=== PATIENT | male | born 1945 | race Caucasian/White ===

== ENCOUNTER 2018-03-01 09:30 | Outpatient (RCR) | payer OTHER, SELFPAY ==
--- NOTE | 2018-01-02 17:00 | HP.PTEVAL_ITS ---
Patient's Visit Information D KEON HINSON is a 72 year old M referred to Physical Therapy by Keon Fortune with a diagnosis of LUMBAR DDD, LUMBAR SCOLIOSIS, AND RIGHT HIP OA.. Date of Evaluation: 01/02/18 Physical Therapist: Britney Santos - Visit Plan Frequency: 2-3x /Week Duration: 4-6 Weeks Plan: POSTURE CORRECTION/STRENGTHENING, INSTRUCTION IN APPROPRIATE BODY MECHANICS AND ACTIVITY MODIFICATIONS. DLS STARTING WITH A NEUTRAL SPINE PROGRESSING ROM TOLERATED. JOSE LE ROM, STRETCHING AND STRENGTHENING. HEP INSTRUCTION. - Subjective Subjective: Work/Leisure: RETIRED. 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 Disability: NO. Present symptoms: RIGHT LOW BACK PAIN, A LITTLE LEFT LOW BACK PAIN, RIGHT HIP PAIN, AND DIFFICULTY RAISING RIGHT LEG TO GO UP STEPS - WEAK. SOME TINGLING ON THE BOTTOM OF BOTH FEET - STATES THE DOCTOR IS AWARE. Present since: ABOUT 3 YEARS AGO. Pain Scale: WORST 7/10, LEAST 1/10. Currently: 07/25. Commenced as a result of: FALL IN THE SHOWER. Symptoms at onset: RIGHT RIB FX'S AND THEN RIGHT BACK PAIN. Worse: RIGHT SDLY, BENDING, TWISTING, DRIVING, PROLONGED SITTING, GETTING UP IN THE MORNING. Better: STRETCHING/MOVING THE BODY/SIT UPS IN BED BEFORE GETTING UP/BEND OVERS. CHIROPRACTOR. HOT TUB. Disturbed sleep: NO. Previous history/Previous treatment: CHIROPRACTOR. Coughing/sneezing/straining : POSITIVE. Gait: INDEP GAIT WITHOUT AD. WALKING STRAIGHT TODAY BUT SOMETIMES GETS PULLED TO THE RIGHT IN WALKING. Difficulty initiating urinatin: NO. Accidents: NO. Unexplained weight loss: NO. Imaging: RECENT LUMBAR X -RAYS ORDERED BY DR. FORTUNE - ARTHRITIS. RIGHT HIP X-RAY - MINIMAL ARTHRITIS. PMH: CHRONIC RIGHT FOREARM NUMBNESS AND SOME RIGHT SHOULDER ISSUES. JOSE KNEE ARTHRIITS - NO KNEE SURGERIES BUT RECENT INJECTIONS. BARRETS ESOPHOGUS TREATMENTS FOR PRE-CANCEROUS CONDITION. HTN. HIGH CHOLESTEROL. - Objective Sitting/Standing Posture: POOR. SLOUCHED. FORWARD HEAD, ROUNDED SHOULDERS. JOSE GENU VARUS. Lordosis: DECREASED. Lateral shift: NO. Relevant shift: N/A. Active Correction of posture: NE. Other Observations: INDEP GAIT INTO PT WITHOUT AD. INCREASED TRUNK FLEXION. NO LOB. INDEP TRANSFER SIT TO STAND WITHOUT UE ASSIST. Motor deficit: JOSE LE'S 5/5 WITH MMT'ING EXCEPT HIPS GRADED 4/5. Sensory deficit: JOSE LE LIGHT TOUCH SENSATION IS INTACT AND SYMMETRICAL. FEET NT. ROM deficit: TIGHT JOSE HIP ROTATORS WITH THE LEFT HIP ACTUALLY BEING MORE TIGHT THAN THE RIGHT INTO EXTERNAL ROTATION. JOSE HIP FLEX WNL. TIGHT JOSE HIP EXTENSORS. ONLY MILD HS TIGHTNESS. GASTROC'S WFL. Reflexes: UNABLE TO ELICIT JOSE QUAD DTR'S BUT JOSE ACHILLES 1/2. Dural Signs: NEGATIVE JOSE LE'S. Lumbar mvmt loss: flex - NIL. ext - MOD. R SG - MOD. L SG - MIN. Core strength: POOR. Palpation: TENDERNESS WITH PALPATION OF THE L45S1 REGION. TALON INCREASED MUSCLE TONE JOSE LUMBAR PARASPINALS. NO HIP TENDERNESS JOSE TODAY. - Goals Goal 1:: DECREASE C/O RIGHT LOW BACK AND HIP Goal Time Frame: 4-6 Weeks Goal 2:: IMPROVE LIFTING, WALKING, SITTING, STANDING, TRAVEL AND HOMEMAKING FUNCTION. Goal Time Frame: 4-6 Weeks Goal 3:: INSTRUCT IN PROPHYLAXIS Goal Time Frame: 4-6 Weeks - Rehabilitation Potential Rehabilitation Potential: Fair - Anticipated Interventions Patient/Client Instruction: Educate patient on: Condition, Plan of Care, Risk Factors, Benefits of Fitness Program For the Purpose of:: To improve self management Therapeutic Exercise to Include: Strength training, Body mechanics, Postural training, Passive ROM, Dynamic Lumbar Stabilization For the Purpose of:: To decrease pain, To increase ROM, To improve ability of physical actions for home/community/work/leisure Ultrasound (thermal/non thermal): Yes For the Purpose of:: To decrease pain, To decrease swelling/inflammation, To increase ROM Thank you for the opportunity to evaluate your patient. For Medicare and Medicare HMO plans, please review the plan of care and approve it. It will need to be FAXED BACK to us at [phone] for Medicare purposes. Please let me know if there are questions or concerns regarding this plan of care. Physician Signature: Date:
--- NOTE | 2018-02-22 17:09 | HP.PTREVAL ---
Keon Fortune, It has been my pleasure to treat Fatoumata HINSON over the last 10 visits for LUMBAR DDD, LUMBAR SCOLIOSIS, AND RIGHT HIP OA.. Please see the progress note below for an update on the physical therapy plan of care! Subjective: PATIENT REPORTS HE IS GETTING BETTER BUT INCREASED LOW BACK PAIN LAST NIGHT AND THIS MORNING FOR NO APPARENT REASON. PATIENT REPORTS HE IS GOING TO JOIN OUR [facility] MEMBERSHIP HERE AT [facility]. PATIENT REPORTS HE HAD UP TO 7-8/10 PAIN THIS MORNING. PATIENT REPORTS HIS PAIN ISN'T STOPPING HIM FROM DOING ANYTHING BUT HE WOULD REALLY LIKE TO KNOW WHAT IS WRONG. HAS BEEN GOLFING A FEW TIMES AND DOES TIGHTEN UP THE LAST 3 HOLES OF 18 HOLE ROUND. NO CHANGE IN FOOT SX'S AT THIS POINT. Objective/Function: PATIENT HAS MADE MINIMAL PROGRESS TOWARD THE SET PT GOALS. HE CONTINUES TO HAVE SIGNIFICANT LOW BACK PAIN. HE AMBULATES INDEP'LY INTO PT WITH A LEFT LATERAL SHIFT AND INCREASED TRUNK FLEXION. HE IS ABLE TO CROSS MIDLINE TO THE RIGHT. LUMBAR MVMT LOSS: FLEX - NIL, EXT - MOD, RIGHT SG - MOD, LEFT SG - MIN. TOLERATED US WELL. TOLERATED DURAL STRETCHING WELL. PATIENT REPORTED DECREASED LOW BACK PAIN AFTER SESSION TODAY. Plan Plan: CONT PT 2-3 TIMES A WEEK X 4-5 WEEKS FOR US TO LOW BACK. POSTURAL STRENGTHEING. JOSE LE ROM, STRETCHING AND STRENGTHENING. CORE STRENGTHEING. CONTINUE TO PROGRESS TOWARD INDEP GYM PROGRAM. TRIAL OF MECHANIZIES EXT AND OR LATERAL PRINCIPALS OF TREATMENT INDICATED. Goals Goal 1:: DECREASE C/O RIGHT LOW BACK AND HIP Goal Time Frame: 4-6 Weeks Goal Progress: Not Progressing Goal 2:: IMPROVE LIFTING, WALKING, SITTING, STANDING, TRAVEL AND HOMEMAKING FUNCTION. Goal Time Frame: 4-6 Weeks Goal Progress: Not Progressing Goal 3:: INSTRUCT IN PROPHYLAXIS Goal Time Frame: 4-6 Weeks Goal Progress: Progressing Anticipated Interventions Patient/Client Instruction: Educate patient on: Condition, Plan of Care, Risk Factors, Benefits of Fitness Program For the Purpose of:: To improve self management Therapeutic Exercise to Include: Strength training, Body mechanics, Postural training, Passive ROM, Dynamic Lumbar Stabilization For the Purpose of:: To decrease pain, To increase ROM, To improve ability of physical actions for home/community/work/leisure Ultrasound (thermal/non thermal): Yes For the Purpose of:: To decrease pain, To decrease swelling/inflammation, To increase ROM Please do not hesitate to contact me at [phone] by phone or if you have questions or concerns regarding this new plan of care! Sincerely, Britney Santos
--- NOTE | 2018-03-01 10:13 | HP.PTDCSUM ---
HP - PT D/C Summary It has been my pleasure to treat Fatoumata HINSON under orders from Keon Fortune, for the diagnosis of LUMBAR DDD, LUMBAR SCOLIOSIS, AND RIGHT HIP OA. for a total of 13 visit(s). Discharge Date: Please see the following information for a summary of their discharge status. - Subjective Subjective: PATIENT REPORTS HE HASN'T HAD ANY BAD MORNINGS LATELY. PLAYED TWO ROUNDS OF GOLF THE OTHER DAY AND LAST NIGHT PLAYED GOLF. ABLE TO GOLF WITH LESS BACK TIGHTNESS NOW COMPARED TO BEFORE PT. HAD JOSE KNEE INJECTIONS YESTERDAY. THIS IS THE FIRST TIME HE HAS HAD THESE INJECTIONS. PATIENT REPORTS UP TO 3-4/10 PAIN IN THE LAST 3 DAYS AT ITS WORST. NO LONGER HAVING TROUBLE GOING UP STEPS. PATIENT REPORTS HE WOULD LIKE TO HAVE AN MRI TO SEE IF THEY CAN SEE MORE SPECIFICALLY WHAT CAN BE DONE. PATIENT REPORTS HE DIDN'T REALIZE BEFORE THAT THE MEDICINE THE DOCTOR HAS HIM ON IS ACTUALLY A PAIN MEDICINE. - Pain LOW BACK Pain Intensity (Out of 10): 0 RIGHT HIP Pain Intensity (Out of 10): 0 LEFT KNEE PAIN Pain Intensity (Out of 10): 0 - Overall Improvement % Improvement: 25 - Objective Objective/Function: PATIENT HAS CONTINUED TO ONLY MAKE MINIMAL PROGRESS TOWARD THE SET PT GOALS. HE CONTINUES TO HAVE SIGNIFICANT LOW BACK PAIN AT TIMES LIMITING HIS FUNCTION. HE AMBULATES INDEP'LY INTO PT WITH A MILD LEFT LATERAL SHIFT (BUT PATIENT REPORTS THE PAIN PULLS HIM RIGHT SOMETIMES)AND INCREASED TRUNK FLEXION. HE IS ABLE TO CROSS MIDLINE TO THE RIGHT. LUMBAR MVMT LOSS: FLEX - NIL, EXT - MOD, RIGHT SG - MOD, LEFT SG - MIN. LEFT SG INCREASES THE PAIN. RECOMMEND PHYSICIAN FOLLOW UP AND AVOIDANCE OF BENDING, LIFITNG AND TWISITNG UNTIL RECOMMENDED OTHERWISE BY PHYSICIAN. - Goals Goal 1:: DECREASE C/O RIGHT LOW BACK AND HIP Goal Progress: Not Progressing Goal 2:: IMPROVE LIFTING, WALKING, SITTING, STANDING, TRAVEL AND HOMEMAKING FUNCTION. Goal Progress: Not Progressing Goal 3:: INSTRUCT IN PROPHYLAXIS Goal Progress: Goal Met - Plan Plan: D/C DUE TO LACK OF PROGRESS. - D/C Information If there are questions or concerns regarding this patient's physical therapy, please feel free to call me at [phone]. Thank you for the referral of this patient. Sincerely, Britney Santos
== END 2018-03-01 11:39 | disposition home or self-care (01) ==
LOC: PT 09:30
PROVIDERS: Family Provider Internal Medicine; PCP Internal Medicine; Visit Provider Orthopaedic Surgery
DX: M51.36 Other intervertebral disc degeneration, lumbar region (principal); M41.46 Neuromuscular scoliosis, lumbar region; M16.11 Unilateral primary osteoarthritis, right hip
CPT/HCPCS: 97035; 97110; 97162; 97164; 97530

== ENCOUNTER 2021-09-19 06:25 | Outpatient (CLI) | payer OTHER, SELFPAY ==
--- NOTE | 2021-09-19 13:51 | STRESSREP ---
Stress Test Report Exercise myocardial perfusion stress test. 76-year-old male with a history of fatigue. Stress protocol: Resting EKG demonstrates normal sinus rhythm with a rate of 76 bpm normal intervals are noted resting blood pressure is 146/86 mmHg. The patient exercised according to regular Abdias protocol for a total duration of 9 minutes and 30 seconds. Patient completed 30 seconds into stage IV of the Abdias protocol. The maximum heart rate attained 125 bpm which was 86% of max impact at heart rate the maximum workload was 11.7 metabolic equivalents. At rest there were no ST or T wave changes noted suggest ischemia and at peak exercise upsloping ST changes were noted with did not meet the criteria for ischemia. No clinical angina was noted. The test was terminated due to dyspnea and target heart rate being achieved. The peak blood pressure was 200/92 mmHg which was 21,000 for a rate-pressure product. Myocardial perfusion protocol. 11.3 mCi of technetium 99m sestamibi was injected at rest. The patient exercised according to regular Abdias protocol and at peak exercise 33.9 mCi of technetium 99m sestamibi was injected stress images were obtained and stress and rest images were reconstructed in comparing the short axis vertical long and horizontal long axis. Gated images were also obtained Perfusion SPECT analysis: Review of the stress images demonstrate normal uptake of tracer noted in all areas of the myocardium. The resting images similarly demonstrate normal uptake of tracer noted in all areas of the myocardium. No areas of reversibility are noted to suggest ischemia no previous infarct is noted. Gated SPECT analysis: The gated ejection fraction is 62%. Conclusion: Normal exercise myocardial perfusion stress test at a high workload. Preserved ejection fraction. Excellent functional capacity.
== END 2021-09-19 23:59 | disposition home or self-care (01) ==
LOC: CVS 06:35
PROVIDERS: PCP Internal Medicine; Referring Provider Internal Medicine; Visit Provider Internal Medicine
DX: E78.5 Hyperlipidemia, unspecified (principal); I10 Essential (primary) hypertension; R53.83 Other fatigue; E78.00 Pure hypercholesterolemia, unspecified
CPT/HCPCS: 78452; 93017; A9500; A4216

== ENCOUNTER → 2022-01-17 | Outpatient (CLI) | payer OTHER, MEDICARE, SELFPAY ==
[2022-01-18 14:01] LABS: PSA, Free 1.29 ng/mL; PSA, Free % 15.5 % (.); PSA, Total Ultrasensitive 8.3 ng/mL (0.0-4.0)
== END | disposition home or self-care (01) ==
LOC: LAB 08:55
PROVIDERS: PCP Internal Medicine; Visit Provider Urology
DX: N40.1 Benign prostatic hyperplasia with lower urinary tract symptoms (principal)
CPT/HCPCS: 36415; 84153; 84154

== ENCOUNTER → 2022-02-10 | Outpatient (CLI) | payer OTHER, MEDICARE, SELFPAY ==
--- NOTE | 2022-02-10 17:10 | MRI_ITS ---
MR Pelvis Male WO/W Contrast 02/10/2022 5:34 PM COMPARISON: None CLINICAL HISTORY: 76 yo M with elevated PSA TECHNIQUE: Standard prostate MR protocol was used before and after administration of 17cc IV Dotarem FINDINGS: Prostate volume: 58 cc PSA density: ONLY B4 TREATMENT ng/ml2 Length of membranous urethra: 9 mm Post-biopsy hemorrhage: None Multiparametric MR evaluation: Heterogeneous appearance of the central gland is consistent with benign prostatic hyperplasia. Diffuse mild T2 hypointensity of the left peripheral zone most likely due to prostatitis. Lesion 1: LOCATION - 1.4 x 3.1 x 2.6 cm moderately T2 hypointense lesion in the right lateral transitional zone from near base to near apex. Is also bright on DWI and dark on ADC map. T2 - 5 DWI - 5 DCE - positive Overall PI-RADS v2 score = 5 Lesion 2: LOCATION - 1.3 x 0.6 x 1.4 cm moderately T2 hypointense lesion in the right posterior lateral peripheral zone in the midline between apex and base. T2 - 4 DWI - 4 DCE - positive Overall PI-RADS v2 score = 4 Capsular margin and neurovascular bundle: There is no obvious macro capsular extension. There is however microcapsular extension along the right lateral border near the bladder by lesion 1. Seminal vesicles: Normal Lymph nodes: No lymphadenopathy in the field of view. Bones: No suspicious lesions in the field of view. MRI/Pelvis W/WO Contrast IMPRESSION: - 3.1 cm PI-RADS 5 lesion in the right lateral TZ from near base to near apex. -1.4 cm PI-RADS 4 lesion in the right posterolateral PZ in midline between base and apex. - No obvious macro capsular extension. There is however microcapsular extension along the right lateral border near the bladder by lesion 1. -No involvement of the seminal vesicles, lymph nodes or bones. Electronically Signed: Pool Sim MD at 0:29 EDT ,
[2022-02-10 17:46] LABS: CREATININE FINGERSTICK 1.2 mg/dL (0.70-1.30); EGFR FINGERSTICK > 60.0000 mL/min (>60)
== END | disposition home or self-care (01) ==
LOC: MRI 17:00
PROVIDERS: PCP Internal Medicine; Visit Provider Urology
DX: R97.20 Elevated prostate specific antigen [PSA] (principal)
CPT/HCPCS: 72197; A9575

== ENCOUNTER → 2022-02-20 | Outpatient (CLI) | payer MEDICARE, OTHER, SELFPAY ==
--- NOTE | 2022-02-20 | IMM_PTH ---
PATIENT: BRANDEE HINSON LOC: [facility] U#:[id number] AGE/SX: 76/M ROOM: RE02/20/[address]: Dr. Paresh Sampson MD : 1945 BED: DIS: 02/20/2022 SPEC #: [id number] RECD: 02/22/22 11:37 STATUS: IVANA REQ #: [id number] FAHEEM: 02/20/22 00:[address]: Paresh Sampson DEPT: IMMUNOHISTOCHEMISTRY RECD BY: Yolanda Yates ENTERED: 02/22/22 11:40 SP TYPE: IMMUNO OTHR DR: Dr. Ayanna Sharp MD Tissues: F - PROSTATE LEFT Procedures: P40 (add) 34BE12 (initial) PHYSICIAN & INSTITUTION [place] [id number] SPECIMEN INFORMATION: Tissue Source: F - Left prostate, base, core biopsy Clinical Info: Elevated PSA Specimen Number: [id number] CPT code: 42460, 82286 METHODOLOGY: Deparaffinized sections of prefer/formalin-fixed tissue or PAP/DQ stained slides are incubated with monoclonal/polyclonal antibodies/oligonucleotide probes. Localization is made via biotin free immunoperoxidase method. Appropriate controls are performed and reacted as expected. Results on target cell population are indicated in the following table: RESULTS: ANTIBODY / CLONE RESULT Block F P40 (BC28) negative, a few glands 34BE12 (34BE12) negative, a few glands These tests were developed and their performance characteristics determined by [facility]. They may not have been cleared or approved by the U.S. Food and Drug Administration. The FDA has determined that such clearance or approval is not necessary. The above immunohistochemical/dualISH markers are ordered and reviewed by the Pathologist. INTERPRETATION: F. Left prostate, base, core biopsy: Focal atypical small acinar proliferation. ARON:maddie 02/23/2022
--- NOTE | 2022-02-20 | PROSBIL_PTH ---
PATIENT: BRANDEE HINSON LOC: [facility] U#:[id number] AGE/SX: 76/M ROOM: RE02/20/[address]: Dr. Paresh Sampson MD : 1945 BED: DIS: 02/20/2022 SPEC #: [id number] RECD: 02/20/22 16:46 STATUS: IVANA RERoxana #: [id number] FAHEEM: 02/20/22 00:[address]: Paresh Sampson DEPT: SURGICAL PATHOLOGY RECD BY: Salvador Stephens ENTERED: 02/21/22 11:47 SP TYPE: PROST BX JODIE DR: Dr. Ayanna Sharp MD Tissues: A - PROSTATE RIGHT B - PROSTATE RIGHT C - PROSTATE RIGHT D - PROSTATE LEFT E - PROSTATE LEFT F - PROSTATE LEFT Procedures: PROSTATE BX HEADER OPERATION: Prostate biopsy PRE-OP DIAGNOSIS: Elevated PSA TISSUE SUBMITTED: A - Right apex, B - Right mid, C - Right base, D - Left apex, E - Left mid, F - Left base MICROSCOPIC DIAGNOSIS A. Right prostate, apex, core biopsy: Prostatic adenocarcinoma. [place] grade: 3+3=6 Number of cores involved: 3/3 Proportion of tissue involved: ~40% Perineural invasion: Not identified. Greatest tumor length: 0.8 cm, discontinuous. B. Right prostate, mid, core biopsy: Prostatic adenocarcinoma. [place] grade: 3+3=6 Number of cores involved: 2/2 Proportion of tissue involved: ~50% Perineural invasion: Not identified. Greatest tumor length: 0.6 cm Focal high-grade prostatic intraepithelial neoplasia (HGPIN). C. Right prostate, base, core biopsy: Prostatic adenocarcinoma. [place] grade: 3+3=6 Number of cores involved: 2/3 Proportion of tissue involved: ~50% Perineural invasion: Not identified. Greatest tumor length: 0.7 cm D. Left prostate, apex, core biopsy: Focal high-grade prostatic intraepithelial neoplasia (HGPIN). Focal chronic inflammation and calcification. E. Left prostate, mid, core biopsy: Prostatic tissue, negative for malignancy. Focal acute and chronic inflammation. F. Left prostate, base, core biopsy: Focal atypical small acinar proliferation (PATY). Focal high-grade prostatic intraepithelial neoplasia (HGPIN). Focal chronic inflammation. See comment. SJ:maddie 02/22/2022 COMMENT F. Immunohistochemistry ([id number]) supports the above diagnosis. Case has been reviewed in consultation with Dr. Mon who concurs with the above diagnosis. IDC:AM MICROSCOPIC DESCRIPTION Slides are reviewed. GROSS DESCRIPTION A - Received is one container designated prostate, right apex. The specimen consists of three elongated fragments of light pabon-white soft tissue measuring 1.2 to 1.5 cm in length and 0.1 cm in diameter. The specimen is totally submitted in one cassette. B - Received is one container designated prostate, right mid. The specimen consists of two elongated fragments of light pabon-white soft tissue each measuring 1.5 cm in length and 0.1 cm in diameter. The specimen is totally submitted in one cassette. C - Received is one container designated prostate, right base. The specimen consists of three elongated fragments of light pabon-white soft tissue measuring 1 to 1.5 cm in length and 0.1 cm in diameter. The specimen is totally submitted in one cassette. D - Received is one container designated prostate, left apex. The specimen consists of two elongated fragments of light pabon-white soft tissue measuring 0.9 and 1.1 cm in length and 0.1 cm in diameter. The specimen is totally submitted in one cassette. E - Received is one container designated prostate, left mid. The specimen consists of two elongated fragments of light pabon-white soft tissue measuring 1 and 1.5 cm in length and 0.1 cm in diameter. The specimen is totally submitted in one cassette. F - Received is one container designated prostate, left base. The specimen consists of two elongated fragments of light pabon-white soft tissue measuring 1.2 and 2 cm in length and 0.1 cm in diameter. The specimen is totally submitted in one cassette. / ARON:maddie 02/21/2022 TC:0 CPT: G0146
== END | disposition home or self-care (01) ==
LOC: LABSPEC 16:52
PROVIDERS: PCP Internal Medicine; Visit Provider Urology
DX: R97.20 Elevated prostate specific antigen [PSA] (principal)
CPT/HCPCS: 88305; 88341; 88342; G0416

== ENCOUNTER → 2022-03-07 | Outpatient (CLI) | payer MEDICARE, OTHER, SELFPAY ==
[2022-03-07 12:19] LABS: Absolute Lymphocyte Count 2.04 X10^3/uL (0.83-4.51); Absolute Neutrophil Count 3.8 X10^3/uL (2.0-7.7); Basophil# 0.04 X10^3/uL; Basophil% 0.6 % (0-1); Eosinophil# 0.11 X10^3/uL; Eosinophils% 1.7 % (0-5); Hematocrit 47.4 % (40-54); Hemoglobin 15.5 g/dL (13.0-16.5); Lymphocyte # 2.04 X10^3/ul (0.83-4.51); Lymphocyte % 31.5 % (19-41); Mean Corp Hgb Conc 32.7 g/dL (32-36); Mean Corpuscular Volume 91.7 fL (80-94); Mean Platelet Vol. 11.4 fl (6.2-12.0); Monocyte# 0.48 X10^3/uL; Monocyte% 7.4 % (0-10); NRBC Flagged by Analyzer 0 % (0-5); Neutrophil # 3.79 X10^3/uL (2.7-7.7); Neutrophil % 58.5 % (47-70); Platelet Count 269 K/mm3 (150-450); RBC Distribution Width CV 13.2 % (11.6-14.6); RBC Distribution Width SD 44.7 fl (35.1-43.9); Red Blood Count 5.17 M/mm3 (4.6-6.2); White Blood Count 6.5 K/mm3 (4.4-11.0)
[2022-03-07 13:04] LABS: Vitamin D,25 Hydroxy 29.2 ng/mL
[2022-03-07 13:16] LABS: ALB/GLOB Ratio 0.9 RATIO (0.9-2.4); AST(SGOT) 19 U/L (15-37); Alanine Aminotransfer ALT/SGPT 22 U/L (16-61); Albumin, Serum 3.4 g/dL (3.2-5.0); Alkaline Phosphatase 58 U/L (45-117); Anion Gap 6 (5-15); BUN 16 mg/dL (7-18); BUN/Creat Ratio 16.1 RATIO (10-20); Calcium,Total 9.2 mg/dL (8.5-10.1); Chloride 105 mmol/L (98-107); Cholesterol 268 mg/dL (200); EST Glomerular Filtration Rate 78 mL/min (>60); Est Glom Filt Rate - Afr Amer 94 mL/min (>60); Globulin 3.7 g/dL (2.2-4.2); Glucose 119 mg/dL (74-106); High Density Lipoprotein 42 mg/dL; PSA,Total - Annual Screen 7.74 ng/mL (0.00-4.00); Potassium 4.2 mmol/L (3.5-5.1); Protein, Total 7.1 g/dL (6.4-8.2); Sodium Level 138 mmol/L (136-145); Thyroid Stim Hormone (TSH) 3.74 uIU/mL (0.358-3.74); Triglycerides 151 mg/dL; Very Low Density Lipoprotein 30 mg/dL (5-40)
== END | disposition home or self-care (01) ==
PROVIDERS: PCP Internal Medicine; Referring Provider Internal Medicine; Visit Provider Internal Medicine
DX: R97.20 Elevated prostate specific antigen [PSA] (principal); E78.5 Hyperlipidemia, unspecified; I10 Essential (primary) hypertension; K21.9 Gastro-esophageal reflux disease without esophagitis; E55.9 Vitamin D deficiency, unspecified; R53.83 Other fatigue
CPT/HCPCS: 36415; 80053; 80061; 82306; 84153; 84443; 85025; G0103

== ENCOUNTER → 2022-04-27 | Outpatient (CLI) | payer OTHER, MEDICARE, SELFPAY ==
--- NOTE | 2022-04-27 08:45 | CDU_ITS ---
Reason For Study: unstable gait Rt. Velocities/BP Lt. Velocities/BP Prox CCA 70.2/17.3 cm/sec. Prox CCA 60.4/13.3 cm/sec. Mid CCA 81.5/17.3 cm/sec. Mid CCA 75.3/17.7 cm/sec. Dist CCA 67.4/16.3 cm/sec. Dist CCA 84.4/21.1 cm/sec. Prox ICA 66.4/16.3 cm/sec. Prox ICA 91.2/24.9 cm/sec. Mid ICA 57.9/19.2 cm/sec. Mid ICA 52.4/19.8 cm/sec. Dist ICA 74.9/25.8 cm/sec. Dist ICA 59.1/24.6 cm/sec. Rt. ICA/CCA = .9. Lt. ICA/CCA = 1.2. Prox ECA 57.9/7.8 cm/sec. Prox ECA 91.2/12.6 cm/sec. Rt. Vert. 36.0/7.2 cm/sec. Lt. Vert. 54.4/16.3 cm/sec. Right Extracranial There is heterogeneous, irregular atherosclerotic plaque noted in the right common carotid artery. There is heterogeneous, irregular atherosclerotic plaque noted in the right internal carotid artery. There is heterogeneous, irregular atherosclerotic plaque noted in the right external carotid artery. Antegrade flow is noted in the right vertebral artery. Left Extracranial There is heterogeneous, irregular atherosclerotic plaque noted in the left common carotid artery. There is heterogeneous, irregular atherosclerotic plaque noted in the left internal carotid artery. There is heterogeneous, irregular atherosclerotic plaque noted in the left external carotid artery. Antegrade flow is noted in the left vertebral artery. Procedure Carotid Duplex [id number]. This is a Carotid Duplex examination using B-mode, color flow and specral Doppler. The exam was diagnostic. Exam performed in department. VL/Carotid Duplex Ultrasound Interpretation Summary Calcific plaque with shadowing right mid common carotid artery Irregular plaque at the proximal right internal carotid artery with less than 5 0% stenosis Less than 50% stenosis right external carotid artery Irregular plaque in the mid left common carotid artery Irregular plaque at the proximal left internal carotid artery with less than 50 % stenosis but tortuosity noted Less than 50% stenosis left external carotid artery Patent and antegrade vertebral arteries bilaterally Ordering Physician: Ayanna Sharp Performed By: Bright León RVT
== END | disposition home or self-care (01) ==
LOC: CVS 08:44
PROVIDERS: PCP Internal Medicine; Referring Provider Internal Medicine; Visit Provider Internal Medicine
DX: I65.23 Occlusion and stenosis of bilateral carotid arteries (principal); R26.81 Unsteadiness on feet
CPT/HCPCS: 93880

== ENCOUNTER → 2022-08-29 | Outpatient (CLI) | payer MEDICARE, SELFPAY ==
[2022-08-29 10:43] LABS: Absolute Neutrophil Count 4.1 X10^3/uL (2.0-7.7); Basophil# 0.07 X10^3/uL; Eosinophil# 0.09 X10^3/uL; Eosinophils% 1.3 % (0-5); Hematocrit 49.1 % (40-54); Hemoglobin 16.2 g/dL (13.0-16.5); Lymphocyte % 30.2 % (19-41); Mean Corpuscular Hgb 30.3 pg (27.0-32.0); Mean Corpuscular Volume 91.9 fL (80-94); Mean Platelet Vol. 9.9 fl (6.2-12.0); Monocyte# 0.55 X10^3/uL; Monocyte% 7.9 % (0-10); NRBC Flagged by Analyzer 0 % (0-5); Neutrophil # 4.12 X10^3/uL (2.7-7.7); Neutrophil % 59.3 % (47-70); Platelet Count 304 K/mm3 (150-450); RBC Distribution Width CV 13.6 % (11.6-14.6); Red Blood Count 5.34 M/mm3 (4.6-6.2)
[2022-08-29 11:13] LABS: AST(SGOT) 19 U/L (15-37); Alanine Aminotransfer ALT/SGPT 26 U/L (16-61); Albumin, Serum 3.8 g/dL (3.2-5.0); Alkaline Phosphatase 65 U/L (45-117); Anion Gap 9 (5-15); BUN 16 mg/dL (7-18); BUN/Creat Ratio 13.7 RATIO (10-20); Calcium,Total 9.1 mg/dL (8.5-10.1); Chloride 102 mmol/L (98-107); Cholesterol 291 mg/dL (200); Creatinine, Serum 1.17 mg/dL (0.70-1.30); EST Glomerular Filtration Rate 64 mL/min (>60); Est Glom Filt Rate - Afr Amer 78 mL/min (>60); Globulin 3.9 g/dL (2.2-4.2); Glucose 132 mg/dL (74-106); High Density Lipoprotein 45 mg/dL; Protein, Total 7.7 g/dL (6.4-8.2); Sodium Level 139 mmol/L (136-145); Triglycerides 159 mg/dL; Very Low Density Lipoprotein 32 mg/dL (5-40)
== END | disposition home or self-care (01) ==
PROVIDERS: PCP Internal Medicine; Referring Provider Urology; Visit Provider Urology
DX: R97.20 Elevated prostate specific antigen [PSA] (principal); R39.9 Unspecified symptoms and signs involving the genitourinary system; I10 Essential (primary) hypertension; E78.5 Hyperlipidemia, unspecified; Z13.220 Encounter for screening for lipoid disorders
CPT/HCPCS: 36415; 80053; 80061; 84153; 85025

== ENCOUNTER → 2023-01-01 | Outpatient (CLI) | payer MEDICARE, OTHER, SELFPAY ==
[2023-01-01 15:46] LABS: PSA,Total- Diagnostic 8.24 ng/mL (0.0-4.0)
== END | disposition home or self-care (01) ==
LOC: LAB 14:48
PROVIDERS: PCP Internal Medicine; Referring Provider Urology; Visit Provider Urology
DX: R97.20 Elevated prostate specific antigen [PSA] (principal)
CPT/HCPCS: 36415; 84153

== ENCOUNTER → 2023-01-10 | Outpatient (CLI) | payer MEDICARE, OTHER, SELFPAY ==
--- NOTE | 2023-01-10 16:23 | RAD_ITS ---
INDICATION: Chest pain EXAMINATION/TECHNIQUE: X-RAY - XR Chest 2 Views COMPARISON: FINDINGS: LINES/DEVICES: None. LUNGS: No consolidation, edema or effusion. No pneumothorax. MEDIASTINUM AND CARDIOVASCULAR STRUCTURES: Cardiac silhouette not enlarged. Central airways and mediastinal contour are unremarkable. BONES AND SOFT TISSUES: Unremarkable. RAD/Chest PA and Lateral IMPRESSION: No radiographic evidence of acute cardiopulmonary disease. Electronically Signed: Andrei Zee, at 17:35 EDT ,
[2023-01-10 17:07] LABS: Absolute Lymphocyte Count 2.38 X10^3/uL (0.83-4.51); Absolute Neutrophil Count 4.9 X10^3/uL (2.0-7.7); Basophil# 0.06 X10^3/uL; Basophil% 0.7 % (0-1); Eosinophils% 1.2 % (0-5); Hematocrit 47.1 % (40-54); Hemoglobin 15.4 g/dL (13.0-16.5); Lymphocyte # 2.38 X10^3/ul (0.83-4.51); Lymphocyte % 29.4 % (19-41); Mean Corp Hgb Conc 32.7 g/dL (32-36); Mean Corpuscular Volume 91.6 fL (80-94); Monocyte% 7.4 % (0-10); NRBC Flagged by Analyzer 0 % (0-5); Neutrophil # 4.91 X10^3/uL (2.7-7.7); Neutrophil % 60.8 % (47-70); Platelet Count 281 K/mm3 (150-450); RBC Distribution Width CV 13.1 % (11.6-14.6); Red Blood Count 5.14 M/mm3 (4.6-6.2); White Blood Count 8.1 K/mm3 (4.4-11.0)
[2023-01-10 17:39] LABS: Anion Gap 5 (5-15); BUN 15 mg/dL (7-18); BUN/Creat Ratio 15.1 RATIO (10-20); Calcium,Total 8.7 mg/dL (8.5-10.1); Chloride 106 mmol/L (98-107); Creatinine, Serum 0.99 mg/dL (0.70-1.30); EST Glomerular Filtration Rate 78 mL/min (>60); Est Glom Filt Rate - Afr Amer 94 mL/min (>60); Glucose 96 mg/dL (74-106); Sodium Level 138 mmol/L (136-145)
== END | disposition home or self-care (01) ==
PROVIDERS: PCP Internal Medicine; Referring Provider Internal Medicine Cardiovascular Disease; Visit Provider Internal Medicine Cardiovascular Disease
DX: I20.0 Unstable angina (principal); I10 Essential (primary) hypertension
CPT/HCPCS: 36415; 71046; 80048; 85025

== ENCOUNTER → 2023-01-15 | Day surgery (SDC) | payer MEDICARE, OTHER, SELFPAY ==
[2023-01-12 08:20] VITALS: BMI 27.6
--- NOTE | 2023-01-15 11:14 | CL.D_ITS ---
Patient Name: BRANDEE HINSON Study Date: 01/15/2023 Performing: Polo Tavares MD Ht: 68 inches 172.72 cm : 1945 Wt: 181.99 lbs 82.55 kg Age: 77 Gender: male BSA: 1.96 PROCEDURE(S) PERFORMED DC01-(41107)LHC/COR/LV CLINICAL PROFILE AND INDICATIONS Indications: Worsening Angina Heart Failure: None Stress/Imaging Stress/Image Study Performed: No CAD Presentations: Unstable angina. CONCLUSIONS Severe triple-vessel disease noted with preserved ejection fraction. RECOMMENDATIONS Surgery consult for coronary revascularization DESCRIPTION OF PROCEDURE The patient arrived to the procedure lab. The risks and benefits of the procedure as well as a full description of our services here and current unavailability of surgical backup were fully explained to the patient and/or their significant other prior to the catheterization. The Timeout was completed, verifying the correct patient and procedure. The patient's procedural site was prepped and draped in the usual fashion. Local anesthetic was given subcutaneously to right radial region with Lidocaine 2%. Using a modified Seldinger technique, arterial access was obtained via the right radial artery, a 6Fr sheath was inserted. Left Coronary Artery selective angiography was performed in multiple views using a 5 Fr. JL4 catheter. Right Coronary Artery selective angiography was then performed in multiple views using a 5 Fr. JR 4 catheter. Left Ventriculography was performed in BERNARD projection using a 5 Fr. Pigtail catheter. LV to AO pullback pressures were then recorded.The arterial sheath was pulled and a TR Band was applied for hemostasis CORONARY ANGIOGRAPHY DOMINANCE: Right Dominant LEFT HEART ASSESSMENT Normal LV wall motion Normal Left Ventricular systolic function LEFT MAIN: Angiographically normal LEFT ANTERIOR DESCENDING ARTERY: This vessel is a small to medium size vessel. It gives off a first diagonal branch which bifurcated with the inferior branch having a long 90% stenotic lesion. The mid left anterior descending artery was noted to have a long area of 80 to 90% stenosis. CIRCUMFLEX ARTERY: Nondominant vessel with first obtuse marginal branch with 80% stenosis, second obtuse marginal branch with 80% stenosis. RIGHT CORONARY ARTERY: Large dominant right coronary artery diffusely diseased with mid segment with 50% stenosis and distal long 90% stenosis noted. Vessel bifurcates to left and posterolateral vessel and posterior descending artery vessel. Mild disease is noted in this vessel. AORTIC ROOT: Tortuous COMPLICATIONS No Complications PROCEDURE MEDICATIONS Versed 1 mg IV Fentanyl 50 mcg IV Versed 1 mg IV Oxygen: 2 L/min via nasal cannula Heparin given IA 01/15/2023 10:30:41 Verapamil 2.5mg, Ntg 100mcgs, 3000 units of Heparin given IA 01/15/2023 10:30:41 SUMMARY OF HEMODYNAMIC DATA Time AIR REST ECG 08:53:30 Art 142/66 (92) 10:34:41 AO 139/60 (92) SA 10:39:23 LV 144/4, 24 10:55:33 LV 139/8, 16 10:55:42 LV 138/7, 13 10:56:42 LV 137/8, 17 10:56:50 LVp 139/8, 17 10:56:55 AOp 142/61 (98) 10:57:02 11:08:36 Signed By Polo Tavares MD On 01/15/2023 11:13:40 Polo Tavares MD
== END | disposition home or self-care (01) ==
PROVIDERS: PCP Internal Medicine; Referring Provider Internal Medicine Cardiovascular Disease; Visit Provider Internal Medicine Cardiovascular Disease
DX: I25.110 Atherosclerotic heart disease of native coronary artery with unstable angina pectoris (principal); E11.9 Type 2 diabetes mellitus without complications; I10 Essential (primary) hypertension; E78.5 Hyperlipidemia, unspecified; Z79.82 Long term (current) use of aspirin; Z79.899 Other long term (current) drug therapy
CPT/HCPCS: 93458; 99152; 99153; J7040; C1769; C1894

== ENCOUNTER → 2023-01-24 | Outpatient (CLI) | payer MEDICARE, OTHER, SELFPAY ==
--- NOTE | 2023-01-24 08:52 | VDLE_ITS ---
Reason For Study: Pre-operative bi-lateral GSV/SSV mapping RIGHT LEFT GSV prox thigh, 0.26 x 0.23 cm. GSV prox thigh, 0.28 x 0.28 cm. GSV mid thigh, 0.26 x 0.25 cm. GSV mid thigh, 0.22 x 0.20 cm. GSV distal thigh, 0.25 x 0.26 cm. GSV distal thigh, 0.20 x 0.20 cm. GSV knee, 0.25 x 0.28 cm. GSV knee, 0.23 x 0.26 cm. GSV prox calf, 0.23 x 0.25 cm. GSV prox calf, 0.25 x 0.24 cm. GSV mid calf, 0.27 x 0.32 cm. GSV mid calf, 0.26 x 0.27 cm. GSV distal calf, 0.31 x 0.35 cm. GSV distal calf, 0.28 x 0.29 cm. ASV from junction, prox thigh, 0.23 x 0.25 SSV prox, 0.24 x 0.26 cm. cm. SSV mid, 0.23 x 0.26 cm. ASV from junction, mid thigh, 0.20 x 0.21 cm. SSV distal, 0.19 x 0.22 cm. SSV prox, 0.26 x 0.27 cm. Multiple branches noted throughout GSV SSV mid, 0.21 x 0.22 cm. SSV distal, 0.20 x 0.21 cm. Vein wall thickening noted throughout SSV Multiple branches noted throughout GSV GSV and SSV are compressible. Vein wall thickening noted throughout SSV GSV, ASV, SSV are compressible. Procedure This is a venous duplex using B-mode, color flow and spectral Doppler. Exam performed in department. The exam was diagnostic. VL/Saphenous Vein Mapping, Bilat Interpretation Summary Right great saphenous vein patent with measurements above. Right accessory saphenous vein patent with measurements above. Right small saphenous vein patent with measurements above. Vein wall thickened throughout. Left great saphenous vein patent with measurements above. Left small saphenous vein patent with measurements above. Vein wall thickened t hroughout. Ordering Physician: ANTONELLA WASHINGTON Referring Physician: Ayanna Sharp M.D. Performed By: Dawit Singer RVT
== END | disposition home or self-care (01) ==
LOC: CVS 08:48
PROVIDERS: PCP Internal Medicine; Referring Provider Surgery; Visit Provider Surgery
DX: Z01.818 Encounter for other preprocedural examination (principal); I25.10 Atherosclerotic heart disease of native coronary artery without angina pectoris
CPT/HCPCS: 93970

== ENCOUNTER → 2023-01-26 | Outpatient (CLI) | payer MEDICARE, OTHER, SELFPAY ==
--- NOTE | 2023-01-26 07:33 | CT_ITS ---
STUDY: CT CHEST WITHOUT CONTRAST REASON FOR EXAM: Male, 77 years old. CAD. Patient having bypass surgery next week. RADIATION DOSAGE (If Supplied By Facility): CTDIvol = ( 13.46 ) mGy, DLP = ( 491.18 ) mGycm TECHNIQUE: Transaxial imaging was performed without the administration of intravenous contrast material. Multiplanar coronal and sagittal images were reformatted. Individualized dose optimization techniques were used for this CT. COMPARISON: No relevant priors. FINDINGS: CHEST Small benign-appearing bilateral axillary lymph nodes. There is a 7.7 mm x 6.9 mm noncalcified nodule in the right upper lobe as seen on axial image #48 and coronal image #135. There is no demonstrated pleural abnormality. There are calcifications of the coronary arteries. Normal mediastinum. Normal hilar regions. Normal unenhanced pulmonary arteries. There is atherosclerotic calcification of the aortic arch with tortuosity and elongation of the aortic arch and descending thoracic aorta. There are mild degenerative changes of the thoracic spine. Moderate-sized hiatal hernia. There is a 2.1 cm x 4 cm cyst in the medial aspect of the right lobe of the liver. The patient is status post cholecystectomy. CT/Chest without Contrast IMPRESSION: 7.7 mm x 6.9 mm noncalcified nodule in the right upper lobe as seen on axial image #48 and coronal image 135. Correlation with a PET scan is recommended. Coronary artery calcification. Hepatic cyst. Moderate sized hiatal hernia. Electronically Signed: Boston Orr MD at 9:18 EDT ,
--- NOTE | 2023-01-26 07:34 | ECHOD_ITS ---
Reason For Study: CAD Procedure This was a 2D Doppler, Color Flow transthoracic echocardiogram. Exam performed in department. Left Ventricle Normal LV size. Left ventricular systolic function is normal. The estimated ejection fraction is 60 %. Stage 1 diastolic dysfunction. No regional wall motion abnormalities noted. Right Ventricle Normal RV size. Normal systolic function. Atria Normal left atrium. Normal right atrium. Mitral Valve Bileaflet diffuse mitral valve thickening. Tricuspid Valve Normal tricuspid valve. Mild tricuspid valve insufficiency. Pulmonary artery systolic pressure is 20 mmHg. Aortic Valve Trisinus/trileaflet aortic valve. Mild focal aortic valve calcification. Mild (1+) eccentric aortic valve insufficiency. Pulmonic Valve Normal pulmonic valve. Great Vessels Mildly dilated aortic root. The pulmonary artery is normal size. Normal inferior vena cava. Pericardium/Pleural No pericardial effusion. MMode/2D Measurements & Calculations LVIDd: 5.1 cm IVSd: 1.3 cm LVOT diam: 2.3 cm LVIDs: 3.2 cm LVPWd: 1.0 cm LVOT area: 4.1 cm2 RVDd: 3.9 cm FS: 36.0 % Ao root diam: 3.9 cm LAV(MOD-bp): 42.4 ml LVAd ap4: 30.7 cm2 LAV(MOD-bp) Indexed: 21.9 ml/m2 LVLd ap4: 8.7 cm LAV(MOD-sp2): 36.4 ml EDV(MOD-sp4): 89.3 ml LAV(MOD-sp4): 47.8 ml EDV(sp4-el): 92.5 ml LVAs ap4: 17.6 cm2 LVLs ap4: 7.4 cm ESV(MOD-sp4): 35.4 ml ESV(sp4-el): 35.6 ml EF(MOD-sp4): 60.4 % EF(sp4-el): 61.5 % LVAd ap2: 30.9 cm2 SV(MOD-sp4): 53.9 ml SV(MOD-sp2): 57.2 ml LVLd ap2: 8.7 cm EDV(MOD-sp2): 92.4 ml EDV(sp2-el): 93.0 ml LVAs ap2: 17.9 cm2 LVLs ap2: 7.8 cm ESV(MOD-sp2): 35.1 ml ESV(sp2-el): 34.8 ml EF(MOD-sp2): 62.0 % SV(sp4-el): 56.8 ml LA dimension(2D): 2.9 cm LA A4 area: 17.6 cm2 RA A4 area: 15.6 cm2 TAPSE: 2.0 cm Doppler Measurements & Calculations MV E max tyrell: 57.1 cm/sec Lat Peak E' Tyrell: 7.3 cm/sec Med Peak E' Tyrell: 5.0 cm/sec MV A max tyrell: 80.7 cm/sec E/E' lat: 7.8 E/E' med: 11.3 MV E/A: 0.71 Ao V2 max: 151.4 cm/sec AI max tyrell: 410.0 cm/sec LV V1 max: 89.3 cm/sec Ao max P.2 mmHg AI max P.4 mmHg LV V1 max P.2 mmHg Ao V2 mean: 99.6 cm/sec AI dec slope: 142.7 cm/sec2 LV V1 mean P.7 mmHg Ao mean P.5 mmHg AI P1/2t: 841.6 msec LV V1 mean: 60.5 cm/sec Ao V2 VTI: 35.1 cm LV V1 VTI: 22.8 cm AV (velocity ratio): 0.65 CHLOÉ(I,D): 2.6 cm2 CHLOÉ(V,D): 2.4 cm2 SV(LVOT): 92.5 ml PA V2 max: 65.2 cm/sec TR max tyrell: 194.0 cm/sec TR max P.1 mmHg ECHO/Echo Complete Interpretation Summary Normal LV size. Left ventricular systolic function is normal. The estimated ejection fraction is 60 %. Stage 1 diastolic dysfunction. Mildly dilated aortic root. Ordering Physician: ANTONELLA WASHINGTON Referring Physician: ANTONELLA WASHINGTON Performed By: Cindy Perez RDCS
== END | disposition home or self-care (01) ==
LOC: CT 07:30
PROVIDERS: PCP Internal Medicine; Referring Provider Surgery; Visit Provider Surgery
DX: Z01.818 Encounter for other preprocedural examination (principal); I25.10 Atherosclerotic heart disease of native coronary artery without angina pectoris
CPT/HCPCS: 71250; 93306

== ENCOUNTER → 2023-03-28 | Outpatient (CLI) | payer MEDICARE, OTHER, SELFPAY ==
--- NOTE | 2023-03-28 07:56 | PCM.CR.HP2 ---
CR - History & Physical General Arrival date:: 03/28/23 Arrival time:: 07:56 Date of Referral:: 03/20/23 Date of CR Evaluation:: 03/28/23 Referring Physician: Dr. Polo Tavares Primary Diagnosis: CABG History of Present Cardiac Event Onset Date Coronary Artery Bypass Graft:: Yes Medications Ambulatory Orders Medication Instructions Recorded aspirin 81 mg tablet,delayed 81 mg PO DAILY@0800 04/28/15 release famotidine 40 mg tablet 40 mg PO QHS 08/17/21 insta flex joint support PO 08/17/21 multivitamin 1 tab PO DAILY 08/17/21 esomeprazole magnesium 40 mg 40 mg PO BID #180 caps 07/19/22 capsule,delayed release fish oil PO 2XD 09/06/22 vit e PO 01/10/23 acetaminophen 500 mg tablet 1,000 mg PO .COMPLEX 03/01/23 (Tylenol Extra Strength) alfuzosin 10 mg tablet,extended 10 mg PO DAILY 03/01/23 release 24 hr ibuprofen 200 mg tablet (Advil) 200 mg PO Q6H PRN 03/01/23 metoprolol succinate 100 mg 100 mg PO DAILY #90 tabs 03/27/23 tablet,extended release 24 hr rosuvastatin 40 mg tablet 40 mg PO DAILY #90 tabs 03/27/23 Allergies Allergies No Known Allergies Allergy (Verified 03/27/23 13:38) Sleep Disorder Evaluation Hx of Sleep Apnea: No Do you snore loudly (louder than talking or can be heard through closed doors)?: No Do you often feel tired/ fatigued/ sleepy during daytime?: No Has anyone observed you stop breathing during sleep?: No History of Hypertension (for STOP score): Yes STOP Results: Negative Advanced Directives Advanced Directives Power of Tibco Developer: Yes Living Will: Yes Advance Directives Information Provided: Yes Advance Directives on File: Yes DNR Order?:: No Past Medical History Covid-19 Screening Physicial Symptoms Other Clinical Concerns Exposure Risk Pertinent Comorbidities Has a serious heart condition:: Yes Past Medical Illness Medical History Atherosclerotic heart disease of [place] coronary artery without angina pectoris Cholecystectomy planned Family History Summary Family History Other ALS (amyotrophic lateral sclerosis) Cancer Diabetes Heart disease Hypertension Parkinsons Social History Smoking History Smoking Status: Never smoker Alcohol Use Alcohol Usage: Yes (socially) Occupation Occupation (List type of work in comments):: 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) Hobbies, Recreation, Social Activities Hobbies: Sports and Other Recreational Activities: I am able to engage in most, but not all activities Social Environment Status Marital Status: Current Living Arrangements Living Environment:: Spouse Children How many children do you have?: 4 Do any of your children live nearby?: Yes Safety Do you feel safe in your surroundings?: Yes Assistance Do you need any assistance at home?: no Review of Systems Review of Systems Hints Review of Present Symptoms: Reports Operative Discomfort, Angina (burning feeling), Fatigue and Appetite - Normal; Denies Shortness of Breath at Rest, Shortness of Breath with Exertion, PVD, Wound Healing, Dizziness/Lightheadedness, Heart Arrhythmia/Irregularities, Appetite - Special Diet, Sleep - Normal or Sexual Changes Pain Is Patient Pain Free?: Yes Risk Factor Assessment Chief Complaint Chief Complaint: CABG Vital Signs Pulse Ox: 96 Pulse Pulse Rate: 72 Hypertension How long have you been treated?: 10 years Blood Pressure Sitting - Right Arm: 131/71 Stress Stress: Work-related (owns business) Obesity Height: 5 ft 8 in Weight:: 178 lb Weight in Pounds: 178.0 lbs Body Mass Index (BMI): 27.0 Nutritional Referral for Obesity: No (declines) Physical Inactivity Physical Inactivity: Reg Exercise 30 min/day Risk Stratification Risk Guidelines: Lowest Risk: Risk Factor for Smoking, Risk Factor for Sedentary Lifestyle and Risk Factor for Depression, Moderate Risk: Risk Factor for Diabetes and Risk Factor for Obesity and Highest Risk: Risk Factor for Dyslipidemia and Risk Factor for Hypertension For Smoking Smoking Risk Guidelines For Dyslipidemia Dyslipidemia Risk Guidelines For Diabetes Mellitus Diabetes Risk Guidelines For Obesity/Overweight Obesity/Overweight Risk Guidelines For Hypertension Hypertension Risk Guidelines For Sedentary Lifestyle Sedentary Lifestyle Risk Guidelines For Depression Depression Risk Guidelines Family History Family History Other ALS (amyotrophic lateral sclerosis) Cancer Diabetes Heart disease Hypertension Parkinsons Motivation Motivation to Participate On a scale of 1 to 10, how prepared are you to commit to attending program?: 9 What do you see as barriers to successfully being able to complete the program?: nothing What do you see as the benefits of succesfully completing the program? In other words, what do you hope to get out of participating in the program?: more energy, improved cardiac health Are there issues you are dealing with that will interfere with completing the program?: no Do you have a spouse or signficant other, family or friends who will help support you to complete the program?: yes
--- NOTE | 2023-03-28 08:04 | CR.ITP_ITS ---
Diagnosis General Information Admitting Diagnosis: CABG Personal Learning Style:: Audio/Visual Barriers to Learning: No Barriers Stage of change r/t lifestyle modifications:: Contemplation Gave educational material for:: Treating Heart Disease, How The Heart Works, What it means to have Heart Disease, How Coronary Artery Disease is Diagnosed, Heart Procedures, What Heart Medications Do, Risk Factors & Modifications, Living an Active Life, Nutrition, Emotions & Heart Disease, Stress Management & Relaxation and Sleep Disorders & Heart Disease Education/Goals Cardiac Rehabilitation Goals Personal Goals: Initial Assessment: Improve energy level, Improve knowledge of cardiac disease and Improve muscle strength and endurance Scale for measuring improvement of personal goals Diagnosis & Disease Process Outcomes/Goals: Pt IDs own risk factors & lifestyle modifications by Session 10, Verbalizes symptoms of angina & response by session 3., Pt independently manages and Other Additional Outcomes/Goals: Plan/Interventions: Assist Pt to ID & engage in lifestyle modification to reduce CVD risk, Instruct on individual risk factors, Review symptoms of angina & emergency actions, Review secondary diagnosis & identify educational needs. and Other see comment 30 day Reassessments:: Not Met 30 day Reassessments:: Not Met 30 day Reassessments:: Not Met 30 day Reassessments:: Not Met Final Reassessments:: Not Met Safety Referral to Physical Therapy: No Referral to [facility] Case Management: No Fall Risk Assessed:: Yes Assistive Devices:: None Exercise - Initial Assessment Visit Date of Eval: 03/28/23 (initial eval ) Mets: Pre-: >3 METS for 30 minutes by discharge, >5 METS for 30 minutes by discharge, >7 METS for 30 minutes by discharge and Unable to meet goal due to: (see comment below) Physician Prescribed Exercise Modalities: Treadmill, Airdyne, NuStep, SciFit and Lateral Pathology Transcriptionist Frequency: 3x/week for 12 weeks [36 sessions] Intensity: 60-80% of age predicted maximum heart rate reserve Duration: 30 - 45 minutes Current METSs:: 3 Target Heart Rate:: 86-107 Resting Blood Pressure: 131/71 EKG Type: SR Outcomes & Goals Goals:: Verbalizes understanding of THR, RPE & goal METS by session 6, Documents in home exercise log/reports 30 min aerobic 5 day/wk by DC, Demonstrates accurate pulse taking by DC and Other additional outcome/goals: see below Intervention & Plan Exercise Program Goals: Instruct on personal THR & RPE, Instruct on MET level & personal MET goal, Show patient to take own pulse /validate performance until accurate, Instruct on home exercise and Other additional plan/int Physical Activity Home Exercise Physical Activity - Home Exercise: Safe Exercise, Warm-up, Self-monitoring, Cool-Down, Home Exercise > 30 min Daily and Sitting Time <3 hours/daily Outcomes & Goals Outcomes/Goals: Demonstrates correct Warm-up/exercise Cool-Down (S3) if = 2.5 METs, Verbalizes symptoms of exercise intolerance by Session 3 (S3), Demonstrate safe equipment use (S3) & follows exercise prescrition (6) and Other: See below Intervention & Plan Plan/Intervention: Instruct warm-up & cool-down if exercising at > 2 METs, Instruct on symptoms of exercise intolerance & actions to take, Instruct & monitor on saf, Assess intial functional capacity & safety risk and Other See below Nutrition - Initial Assessment Program Goals Nutrition Program Goals Patient has diagnosis of Hyperlipidemia (ICD E78)?: Yes Visit Date of Eval: 03/28/23 (initial eval ) Cholesterol/Lipids (Other Core Measures) Determine presence & major risk factors that modify LDL goal: Hypertension or hypertensive medication, Low HDL cholesterol <40 mg/dL*, Family history of pre mature CHD in Male < 55 years: female <65 yearsFa and Age men > 45 years; women >/= 55 years Outcomes/Goals: Pt IDs own risk factors & lifestyle modifications by Session 10, Verbalizes symptoms of angina & response by session 3., Pt independently manages and Other Additional Outcomes/Goals: Intervention/Plan: Advocate for lipid panel cholesterol medication if applicable, Instruct on personal lipid levels & lipid goals/NCEP guidelines, Instruct on cholesterol and Other additional plan/int Referral to dietitian:: No (declines) Diabetes (Other Core Measures) Diabetes Type: Not Applicable Weight Mgt (Other Care) Height: 5 ft 8 in Weight:: 178 lb BMI: 27.0 Diagnosis Overweight/Obesity BMI> 30% ICD-10 E66: No Diagnosis High BMI/Morbid Obesity BMI> 35% ICD-10 Z68: No Outcomes/Goals: Pt sets, maintains & shows weight loss goal & trend during rehab and Other additional outcomes/goals Intervention/Plan: Instruct on ideal BMI & set weight loss goal w/patient, Assist pt to ID & incorporate diet changes for weight loss by S9, Refer to Structured Weight Loss program as appropriate, Encourage goal of using 250- 300dcal per session for weight loss and Other additional plan/interventions Healthy Eating Habits Will attend diet classes:: Yes Outcomes/Goals:: Consume diet rich in vegs,fruits,whole grain/high fiber,fish,lean meat, Limit sat/trans fats,cholesterol & added salts & sugars and Other additional outcome/goals: Intervention/Plan:: Assess current eating habits and Other Additional plan/interventions Education Gave educational materials for:: Signs & symptoms of hypoglycemia, Signs & symptoms of hyperglycemia, Relate diabetes to coronary artery disease and Healthy eating Core - Initial Assessment Visit Date of Eval: 03/28/23 (initial eval ) Medication Compliance Preventative Medication(s):: Aspirin, Statin/lipid and Beta linda H/O mental health issues: depression, anxiety, or addiction?: No Doesn?t believe in the benefits of treatment?: No Believes medications are unnecessary or harmful?: No Has a concern about medication side effects?: No Expresses concern over the cost of medications?: No Outcomes/Goals: Verbalizes medications,desired effect & common side effects @ DC, Pt self-reports following medication regimen, Keeps card in wallet w/medic ations listed by DC and Other additional outcome/goals: Interventions/plans: Instruct on medication effects & side effects, Review medication list w/patient every two weeks, Instruct importance of taking meds as ordered & assist problem solving and Other additional Tobacco Use Tobacco Use: Non-smoker Hypertension Hypertension Diagnosis:: Hypertension ICD-10 I10 [place] [employer] Hypertension Guidelines Outcomes/Goals: Able to verbalize/achieve optimal blood pressure <130/80, Incorporates diet changes & exercise for blood pressure control by DC and Other additional outcomes/goals Interventions/plan: Instruct on optimal blood pressure, hypertension & medications, Instruct on effects of sodium, alcohol, stress, exercise &hypertension and Other additional plan/interventions Tobacco Cessation Referral Smoking Cessation Referral:: No Individual Education/Counseling:: No Education Schedule Given:: Yes Psychosocial - Initial Assess VIsit Date of Eval: 03/28/23 (initial eval ) History of previous Mental disease:: No Target Goals Target Goals Outcomes/Goals: See list Psychosocial Outcomes/Goals:: ID's personal stressors & 2 strategies to manage stress by discharge and Other Additional outcome/goals: Intervention/Plan: See List Interventions/Plan:: Assess stressors,coping strategies & signs of derpression on admission, Instruct/assist pt to develop coping & personal stress Mgt strategies, Refer to Behavioral Health if appropriate, Refer to Physician if appropriate, Instruct patient to recognize signs & symptoms of depression, Instruct patient to recog and Other additional plan/intervention Patient Health Questionnaire PHQ-9 Screening Initial Assessment: 1. Little interest or pleasure in doing things: Not at all 2. Feeling down, depressed, or hopeless: Not at all 3. Trouble falling or staying asleep, or sleeping too much: Several days 4. Feeling tired or having little energy: Several days 5. Poor appetite or overeating: Not at all 6. Feeling bad about yourself -- or that you are a failure or have let yourself or your family down: Not at all 7. Trouble concentrating on things, such as reading the newspaper or watching television: Several days 8. Moving or speaking so slowly that other people could have noticed. Or the opposite - being so fidgety or restless that you have been moving around a lot more than usual: Not at all 9. Thoughts that you would be better off , or of hurting yourself in some way: Not at all How difficult have these problems made it for you to do your work, take care of things at home, or get along with other people?: Not difficult at all Total Score: 3 TAMIR-Q SV Test Statements CAD is a disease of the arteries in the heart: False Examples of risk factors for heart disease: True Angina is chest pain or discomfort: True The benefits of resistance training include: True Eating more meat and dairy products: False Anti-platelet medications such as aspirin are important: True The only effective way to manage stress: False An exercise warm-up slowly increases heart rate: I Don't Know Prepared, processed foods usually have high sodium: True Depression is common after a heart attack: I Don't Know The statin medications lower cholesterol: True To control blood pressure, lower the amount of sodium: True If someone gets chest discomfort during walking: False Transfats are partially hydrogenated vegetable oils: True Sleep apnea that is not treated increases the risk: I Don't Know To control cholesterol, one should become a vegetarian: False Someone knows if he/she is exercising at the right level: True Diabetes cannot be prevented with exercise & health eating: True Stress is a large risk for heart attack: True A diet that can help lower blood pressure is rich in: True Total Score Total Correct Responses: 16 Self-Efficacy 6-Item Scale Initial Assessment: We would like to know how confident you are in doing certain activities. Please select your confidence level for: Fatigue Select Number: 8 Physical Discomfort or Pain Select Number: 8 Emotional Distress Select Number: 7 Other Symptoms or Health Problems Select Number: 7 Different Tasks and Activities Select Number: 8 Medication Select Number: 9 Total Score:: 7 Nutrition Survey Nutrition Survey Instructions Scoring Instructions Nutrition Survey Initial: Have you lost >10 lbs over the past 2 months without trying?: No Are you following a special diet at home for diabetes, low fat, or low salt?: No Are you interested in meeting with a dietitian for help understanding your diet?: No Do you eat less than 3 meals a day?: No Do you eat fatty meats (french, sausage, ribs, etc), fried foods, desserts, large amounts of salad dressings, margarine, butter, or cheese most days?: No Do you have food allergies? [Enter types in comment field]: No Do you eat in restaurants more than 3 times a week?: Yes Do you season food with salt, seasoning salt, or garlic salt?: Yes Do you used canned, boxed, frozen meals, or soups, seasoning packets?: No Total Score:: 2 Exercise - Final/Discharge Physician Prescribed Exercise Modalities: Treadmill, Airdyne, NuStep, SciFit and Lateral [place] Frequency: 3x/week for 12 weeks [36 sessions] Intensity: 60-80% of age predicted maximum heart rate reserve Current METSs:: 3 Target Heart Rate:: 86-107 Nutrition - 30-Day Assessment Weight Mgt (Other Care) Height: 5 ft 8 in Weight:: 178 lb BMI: 27.0 Nutrition - 60-Day Assessment Weight Mgt (Other Care) Height: 5 ft 8 in Weight:: 178 lb BMI: 27.0 Psychosocial - 30-Day Assess Target Goals Target Goals Psychosocial - 60-Day Assess Target Goals Target Goals Psychosocial - 90-Day Assess Target Goals Target Goals Psychosocial - Final Assessmen Target Goals Target Goals Nutrition - 90-Day Assessment Weight Mgt (Other Care) Height: 5 ft 8 in Weight:: 178 lb BMI: 27.0 Nutrition - Final Assessment Program Goals Patient has diagnosis of Hyperlipidemia (ICD E78)?: Yes Weight Mgt (Other Care) Height: 5 ft 8 in Weight:: 178 lb BMI: 27.0
[2023-03-28 08:34] VITALS: BP 131/71; PULSE 72; O2SAT 96; BMI 27.0
[2023-03-28 09:07] VITALS: BMI 27.0
[2023-03-28 09:14] VITALS: BP 131/71
== END | disposition home or self-care (01) ==
LOC: CR 07:52
PROVIDERS: PCP Internal Medicine; Referring Provider Internal Medicine Cardiovascular Disease; Visit Provider Internal Medicine Cardiovascular Disease
DX: Z95.1 Presence of aortocoronary bypass graft (principal)

== ENCOUNTER 2023-04-13 09:30 | Outpatient (RCR) | payer MEDICARE, OTHER, SELFPAY ==
[2023-03-28 09:07] VITALS: BMI 27.0
== END 2023-04-14 23:59 ==
LOC: CR 09:30
PROVIDERS: PCP Internal Medicine; Referring Provider Internal Medicine Cardiovascular Disease; Visit Provider Internal Medicine Cardiovascular Disease
DX: Z95.1 Presence of aortocoronary bypass graft (principal); I25.10 Atherosclerotic heart disease of native coronary artery without angina pectoris
CPT/HCPCS: 93798

== ENCOUNTER 2023-05-14 09:30 | Outpatient (RCR) | payer MEDICARE, OTHER, SELFPAY ==
[2023-03-28 09:07] VITALS: BMI 27.0
--- NOTE | 2023-04-25 10:28 | CR.ITP_ITS ---
Exercise - Initial Assessment Visit Session #:: 9 Nutrition - Initial Assessment Weight Mgt (Other Care) Height: 5 ft 8 in Weight:: 180 lb 8 oz BMI: 27.4 Psychosocial - Initial Assess Target Goals Target Goals Patient Health Questionnaire PHQ-9 Screening 30-Day Re-eval Assessment: 1. Little interest or pleasure in doing things: Not at all 2. Feeling down, depressed, or hopeless: Not at all 3. Trouble falling or staying asleep, or sleeping too much: Several days 4. Feeling tired or having little energy: Several days 5. Poor appetite or overeating: Not at all 6. Feeling bad about yourself -- or that you are a failure or have let yourself or your family down: Not at all 7. Trouble concentrating on things, such as reading the newspaper or watching television: Several days 8. Moving or speaking so slowly that other people could have noticed. Or the opposite - being so fidgety or restless that you have been moving around a lot more than usual: Not at all 9. Thoughts that you would be better off , or of hurting yourself in some way: Not at all How difficult have these problems made it for you to do your work, take care of things at home, or get along with other people?: Not difficult at all Total Score: 3 Self-Efficacy 6-Item Scale 30-Day Re-eval Assessment: We would like to know how confident you are in doing certain activities. Please select your confidence level for: Fatigue Select Number: 8 Physical Discomfort or Pain Select Number: 8 Emotional Distress Select Number: 7 Other Symptoms or Health Problems Select Number: 7 Different Tasks and Activities Select Number: 8 Medication Select Number: 9 Total Score:: 7 Nutrition Survey Nutrition Survey Instructions Scoring Instructions Exercise - 30-day Assessment Visit Date of Eval: 04/25/23 Session #:: 9 Physician Prescribed Exercise Modalities: Treadmill, Airdyne and NuStep Frequency: 3x/week for 12 weeks [36 sessions] Intensity: 60-80% of age predicted maximum heart rate reserve Duration: 30 - 45 minutes Current METSs:: 5 Target Heart Rate:: 108-123 Current RPE:: 12 Maximum Excercise HR:: 94 Resting Blood Pressure: 148/80 Maximum Exercise Blood Pressure: 148/80 EKG Type: NSR to ST with rare PAC Outcomes & Goals Goals:: Verbalizes understanding of THR, RPE & goal METS by session 6, Documents in home exercise log/reports 30 min aerobic 5 day/wk by DC, Demonstrates accurate pulse taking by DC and Other additional outcome/goals: see below Intervention & Plan Exercise Program Goals: Instruct on personal THR & RPE, Instruct on MET level & personal MET goal, Show patient to take own pulse /validate performance until a ccurate, Instruct on home exercise and Other additional plan/int 30-day Reassessments 30 day Reassessments:: Progressing Reassessment Notes & Comments:: RPE explained Physical Activity Home Exercise Physical Activity - Home Exercise: Safe Exercise, Warm-up, Self-monitoring, C ool-Down, Home Exercise > 30 min Daily and Sitting Time <3 hours/daily Outcomes & Goals Outcomes/Goals: Demonstrates correct Warm-up/exercise Cool-Down (S3) if = 2.5 METs, Verbalizes symptoms of exercise intolerance by Session 3 (S3), Demonstrate safe equipment use (S3) & follows exercise prescrition (6) and Other: See below Intervention & Plan Plan/Intervention: Instruct warm-up & cool-down if exercising at > 2 METs, Instruct on symptoms of exercise intolerance & actions to take, Instruct & monit or on saf, Assess intial functional capacity & safety risk and Other See below 30-day Reassessments 30 day Reassessments:: Progressing Reassessment Notes & Comments:: warm up explained Nutrition - 30-Day Assessment Program Goals Nutrition Program Goals Patient has diagnosis of Hyperlipidemia (ICD E78)?: Yes Visit Date of Eval: 04/25/23 Session #:: 9 Cholesterol/Lipids (Other Core Measures) Determine presence & major risk factors that modify LDL goal: Hypertension or hypertensive medication, Low HDL cholesterol <40 mg/dL*, Family history of premature CHD in Male < 55 years: female <65 yearsFa and Age men > 45 years; women >/= 55 years Outcomes/Goals: Pt IDs own risk factors & lifestyle modifications by Session 10, Verbalizes symptoms of angina & response by session 3., Pt independently manages and Other Additional Outcomes/Goals: Intervention/Plan: Advocate for lipid panel cholesterol medication if applicable, Instruct on personal lipid levels & lipid goals/NCEP guidelines, Instruct on cholesterol and Other additional plan/int 30-day Reassessments:: Progressing (pt to attend nutrition class) Weight Mgt (Other Care) Height: 5 ft 8 in Weight:: 180 lb 8 oz BMI: 27.4 Diagnosis Overweight/Obesity BMI> 30% ICD-10 E66: No Diagnosis High BMI/Morbid Obesity BMI> 35% ICD-10 Z68: No Outcomes/Goals: Pt sets, maintains & shows weight loss goal & trend during rehab and Other additional outcomes/goals Intervention/Plan: Instruct on ideal BMI & set weight loss goal w/patient, Assist pt to ID & incorporate diet changes for weight loss by S9, Refer to Structured Weight Loss program as appropriate, Encourage goal of using 250-300d gray per session for weight loss and Other additional plan/interventions 30 day Reassessments:: Progressing Reassessment Notes & Comments:: pt to attend nutrition class Healthy Eating Habits Will attend diet classes:: Yes Outcomes/Goals:: Consume diet rich in vegs,fruits,whole grain/high fiber,fish,lean meat, Limit sat/trans fats,cholesterol & added salts & sugars and Other additional outcome/goals: Intervention/Plan:: Assess current eating habits and Other Additional plan/interventions 30-day Reassessments:: Progressing Reassessment Notes & Comments:: pt will attend nutrition class Education Gave educational materials for:: Signs & symptoms of hypoglycemia, Signs & symptoms of hyperglycemia, Relate diabetes to coronary artery disease and Health y eating Nutrition - 60-Day Assessment Weight Mgt (Other Care) Height: 5 ft 8 in Weight:: 180 lb 8 oz BMI: 27.4 Core - 30-Day Assessment Visit Date of Eval: 04/25/23 Session #:: 9 Medication Compliance Preventative Medication(s):: Aspirin, Statin/lipid and Beta linda H/O mental health issues: depression, anxiety, or addiction?: No Doesn?t believe in the benefits of treatment?: No Believes medications are unnecessary or harmful?: No Has a concern about medication side effects?: No Expresses concern over the cost of medications?: No Outcomes/Goals: Verbalizes medications,desired effect & common side effects @ DC, Pt self-reports following medication regimen, Keeps card in wallet w/medications listed by DC and Other additional outcome/goals: Interventions/plans: Instruct on medication effects & side effects, Review medication list w/patient every two weeks, Instruct importance of taking meds as ordered & assist problem solving and Other additional 30-day Reassessments:: Progressing Reassessment Notes & Comments:: encouraged to take meds Tobacco Use Tobacco Use: Non-smoker Hypertension Hypertension Diagnosis:: Hypertension ICD-10 I10 Resting Blood Pressure:: 148/80 [place] [employer] Hypertension Guidelines Peak Exercise Blood Pressure:: 148/80 Outcomes/Goals: Able to verbalize/achieve optimal blood pressure <130/80, Incorporates diet changes & exercise for blood pressure control by DC and Other additional outcomes/goals Interventions/plan: Instruct on optimal blood pressure, hypertension & medications, Instruct on effects of sodium, alcohol, stress, exercise &hypertension and Other additional plan/interventions 30 day Reassessments:: Progressing Reassessment Notes & Comments:: pt encouraged to take meds Tobacco Cessation Referral Smoking Cessation Referral:: No Individual Education/Counseling:: No Education Schedule Given:: Yes Psychosocial - 30-Day Assess VIsit Date of Eval: 04/25/23 Session #:: 9 History of previous Mental disease:: No Target Goals Target Goals 30-day Reassessments: 30 day Reassessments:: Met Psychosocial - 60-Day Assess Target Goals Target Goals Psychosocial - 90-Day Assess Target Goals Target Goals Psychosocial - Final Assessmen Target Goals Target Goals Nutrition - 90-Day Assessment Weight Mgt (Other Care) Height: 5 ft 8 in Weight:: 180 lb 8 oz BMI: 27.4 Nutrition - Final Assessment Weight Mgt (Other Care) Height: 5 ft 8 in Weight:: 180 lb 8 oz BMI: 27.4
[2023-04-25 10:43] VITALS: BP 148/80; BMI 27.4
== END 2023-05-15 23:59 ==
LOC: CR 09:30
PROVIDERS: PCP Internal Medicine; Referring Provider Internal Medicine Cardiovascular Disease; Visit Provider Internal Medicine Cardiovascular Disease
DX: Z95.1 Presence of aortocoronary bypass graft (principal); I25.10 Atherosclerotic heart disease of native coronary artery without angina pectoris
CPT/HCPCS: 93798

== ENCOUNTER → 2023-06-05 | Outpatient (CLI) | payer MEDICARE, OTHER, SELFPAY ==
[2023-06-01 14:04] VITALS: BMI 27.9
[2023-06-05 08:38] LABS: Absolute Lymphocyte Count 2.04 X10^3/uL (0.83-4.51); Absolute Neutrophil Count 4.2 X10^3/uL (2.0-7.7); Basophil# 0.04 X10^3/uL; Basophil% 0.6 % (0-1); Eosinophil# 0.12 X10^3/uL; Eosinophils% 1.7 % (0-5); Hematocrit 46.1 % (40-54); Hemoglobin 14.7 g/dL (13.0-16.5); Lymphocyte # 2.04 X10^3/ul (0.83-4.51); Lymphocyte % 29.4 % (19-41); Mean Corp Hgb Conc 31.9 g/dL (32-36); Mean Corpuscular Hgb 27.5 pg (27.0-32.0); Mean Corpuscular Volume 86.3 fL (80-94); Mean Platelet Vol. 10.5 fl (6.2-12.0); Monocyte# 0.52 X10^3/uL; Monocyte% 7.5 % (0-10); NRBC Flagged by Analyzer 0 % (0-5); Neutrophil # 4.22 X10^3/uL (2.7-7.7); Neutrophil % 60.7 % (47-70); Platelet Count 264 K/mm3 (150-450); RBC Distribution Width CV 13.8 % (11.6-14.6); RBC Distribution Width SD 43.7 fl (35.1-43.9); Red Blood Count 5.34 M/mm3 (4.6-6.2)
[2023-06-05 09:23] LABS: AST(SGOT) 19 U/L (15-37); Alanine Aminotransfer ALT/SGPT 26 U/L (16-61); Albumin, Serum 3.6 g/dL (3.2-5.0); Alkaline Phosphatase 59 U/L (45-117); Anion Gap 4 (5-15); BUN 22 mg/dL (7-18); BUN/Creat Ratio 19.5 RATIO (10-20); Calcium,Total 8.9 mg/dL (8.5-10.1); Chloride 104 mmol/L (98-107); Cholesterol 160 mg/dL (200); Creatinine, Serum 1.13 mg/dL (0.70-1.30); EST Glomerular Filtration Rate 67 mL/min (>60); Est Glom Filt Rate - Afr Amer 81 mL/min (>60); Globulin 3.7 g/dL (2.2-4.2); Glucose 134 mg/dL (74-106); High Density Lipoprotein 49 mg/dL; Potassium 4.2 mmol/L (3.5-5.1); Protein, Total 7.3 g/dL (6.4-8.2); Sodium Level 136 mmol/L (136-145); Thyroid Stim Hormone (TSH) 2.65 uIU/mL (0.358-3.74); Triglycerides 101 mg/dL; Very Low Density Lipoprotein 20 mg/dL (5-40)
== END | disposition home or self-care (01) ==
LOC: LAB 08:03
PROVIDERS: PCP Internal Medicine; Referring Provider Internal Medicine; Visit Provider Internal Medicine
DX: C61 Malignant neoplasm of prostate (principal); I25.10 Atherosclerotic heart disease of native coronary artery without angina pectoris; R53.83 Other fatigue; R39.9 Unspecified symptoms and signs involving the genitourinary system; I10 Essential (primary) hypertension; E55.9 Vitamin D deficiency, unspecified
CPT/HCPCS: 36415; 80053; 80061; 82306; 84443; 85025

== ENCOUNTER 2023-06-13 09:30 | Outpatient (RCR) | payer MEDICARE, OTHER, SELFPAY ==
[2023-04-25 10:43] VITALS: BMI 27.4
[2023-05-16 00:51] VITALS: BP 148/80
--- NOTE | 2023-06-01 13:51 | CR.ITP_ITS ---
Nutrition - Initial Assessment Weight Mgt (Other Care) Height: 5 ft 8 in Weight:: 184 lb BMI: 27.9 Psychosocial - Initial Assess Target Goals Target Goals Referral to Behavioral Health PS - Interventions: Yes: Attend Stress Management Classes and No: Referral to Behavioral Health if PHQ-9 score >9:, No: Referral to [facility] and No: Referral to Physician if PHQ-9 if score is 5-9: Patient Health Questionnaire PHQ-9 Screening 90-Day Re-eval Assessment: 2. Feeling down, depressed, or hopeless: Not at all 3. Trouble falling or staying asleep, or sleeping too much: Not at all 4. Feeling tired or having little energy: Several days 5. Poor appetite or overeating: Not at all 6. Feeling bad about yourself -- or that you are a failure or have let yourself or your family down: Not at all 7. Trouble concentrating on things, such as reading the newspaper or watching television: Several days 8. Moving or speaking so slowly that other people could have noticed. Or the opposite - being so fidgety or restless that you have been moving around a lot more than usual: Not at all 9. Thoughts that you would be better off , or of hurting yourself in some way: Not at all How difficult have these problems made it for you to do your work, take care of things at home, or get along with other people?: Not difficult at all Total Score: 2 Self-Efficacy 6-Item Scale 90-Day Re-eval Assessment: We would like to know how confident you are in doing certain activities. Please select your confidence level for: Fatigue Select Number: 8 Physical Discomfort or Pain Select Number: 8 Emotional Distress Select Number: 8 Other Symptoms or Health Problems Select Number: 8 Different Tasks and Activities Select Number: 9 Medication Select Number: 10 Total Score:: 8 Nutrition Survey Nutrition Survey Instructions Scoring Instructions Exercise - 90-day Assessment Visit Date of Eval: 06/01/23 Session #:: 26 Physician Prescribed Exercise Modalities: Treadmill, Airdyne and NuStep Frequency: 3x/week for 12 weeks [36 sessions] Intensity: 60-80% of age predicted maximum heart rate reserve Duration: 30 - 45 minutes Current METSs:: 7.0 Target Heart Rate:: 108-123 Current RPE:: 13-14 Resting Blood Pressure: 134/78 Maximum Exercise Blood Pressure: 160/82 EKG Type: NSR to ST isolated PAC, PVC Current Physical Activity or Exercising minutes: 35 Outcomes & Goals Goals:: Verbalizes understanding of THR, RPE & goal METS by session 6, Documents in home exercise log/reports 30 min aerobic 5 day/wk by DC and Demonstrates a ccurate pulse taking by DC Intervention & Plan Exercise Program Goals: Instruct on personal THR & RPE, Instruct on MET level & personal MET goal, Show patient to take own pulse /validate performance until accurate and Instruct on home exercise 30-day Reassessments 30 day Reassessments:: Met Physical Activity Home Exercise Physical Activity - Home Exercise: Safe Exercise, Warm-up, Self-monitoring, Cool-Down, Home Exercise > 30 min Daily and Sitting Time <3 hours/daily Outcomes & Goals Outcomes/Goals: Demonstrates correct Warm-up/exercise Cool-Down (S3) if = 2.5 METs, Verbalizes symptoms of exercise intolerance by Session 3 (S3) and Demonstrate safe equipment use (S3) & follows exercise prescrition (6) Intervention & Plan Plan/Intervention: Instruct warm-up & cool-down if exercising at > 2 METs, Instruct on symptoms of exercise intolerance & actions to take, Instruct & monitor on saf and Assess intial functional capacity & safety risk 30-day Reassessments 30 day Reassessments:: Met Nutrition - 30-Day Assessment Weight Mgt (Other Care) Height: 5 ft 8 in Weight:: 184 lb BMI: 27.9 Nutrition - 60-Day Assessment Weight Mgt (Other Care) Height: 5 ft 8 in Weight:: 184 lb BMI: 27.9 Core - 90 Day Assessment Visit Date of Eval: 06/01/23 Session #:: 26 Medication Compliance Preventative Medication(s):: Aspirin, Statin/lipid and Beta linda H/O mental health issues: depression, anxiety, or addiction?: No Doesn?t believe in the benefits of treatment?: No Believes medications are unnecessary or harmful?: No Has a concern about medication side effects?: No Expresses concern over the cost of medications?: No Outcomes/Goals: Verbalizes medications,desired effect & common side effects @ DC, Pt self-reports following medication regimen and Keeps card in wallet w/medications listed by DC Interventions/plans: Instruct on medication effects & side effects, Review medication list w/patient every two weeks and Instruct importance of taking meds as ordered & assist problem solving 30-day Reassessments:: Progressing Tobacco Use Tobacco Use: Non-smoker Hypertension Hypertension Diagnosis:: Hypertension ICD-10 I10 Resting Blood Pressure:: 134/78 [place] [employer] Hypertension Guidelines Peak Exercise Blood Pressure:: 160/82 Outcomes/Goals: Able to verbalize/achieve optimal blood pressure <130/80 and Incorporates diet changes & exercise for blood pressure control by DC Comment: Blood pressures continue to run over 130/80 even at rest. Interventions/plan: Instruct on optimal blood pressure, hypertension & medications and Instruct on effects of sodium, alcohol, stress, exercise &hypertension 30 day Reassessments:: Progressing Tobacco Cessation Referral Smoking Cessation Referral:: No Individual Education/Counseling:: No Education Schedule Given:: Yes Psychosocial - 30-Day Assess Target Goals Target Goals Referral to Behavioral Health PS - Interventions: Yes: Attend Stress Management Classes and No: Referral to Behavioral Health if PHQ-9 score >9:, No: Referral to [facility] and No: Referral to Physician if PHQ-9 if score is 5-9: Psychosocial - 60-Day Assess Target Goals Target Goals Referral to Behavioral Health PS - Interventions: Yes: Attend Stress Management Classes and No: Referral to Behavioral Health if PHQ-9 score >9:, No: Referral to [facility] and No: Referral to Physician if PHQ-9 if score is 5-9: Psychosocial - 90-Day Assess VIsit Date of Eval: 06/01/23 Session #:: 26 Not Applicable: Yes History of previous Mental disease:: No Target Goals Target Goals Psychosocial Test Tool Used:: PHQ-9 Questionnaire phq-9 Severity Referral to Behavioral Health PS - Interventions: Yes: Attend Stress Management Classes and No: Referral to Behavioral Health if PHQ-9 score >9:, No: Referral to [facility] and No: Referral to Physician if PHQ-9 if score is 5-9: Outcomes/Goals: See list Psychosocial Outcomes/Goals:: ID's personal stressors & 2 strategies to manage stress by discharge Intervention/Plan: See List Interventions/Plan:: Assess stressors,coping strategies & signs of derpression on admission, Instruct/assist pt to develop coping & personal stress Mgt strategies, Instruct patient to recognize signs & symptoms of depression and Instruct patient to recog 30-day Reassessments: 30 day Reassessments:: Met Psychosocial - Final Assessmen Target Goals Target Goals Referral to Behavioral Health PS - Interventions: Yes: Attend Stress Management Classes and No: Referral to Behavioral Health if PHQ-9 score >9:, No: Referral to [facility] and No: Referral to Physician if PHQ-9 if score is 5-9: Nutrition - 90-Day Assessment Program Goals Nutrition Program Goals Patient has diagnosis of Hyperlipidemia (ICD E78)?: Yes Visit Date of Eval: 06/01/23 Session #:: 26 Cholesterol/Lipids (Other Core Measures) Determine presence & major risk factors that modify LDL goal: Hypertension or hypertensive medication and Age men > 45 years; women >/= 55 years Outcomes/Goals: Pt IDs own risk factors & lifestyle modifications by Session 10, Verbalizes symptoms of angina & response by session 3. and Pt independently manages Intervention/Plan: Instruct on personal lipid levels & lipid goals/NCEP guidelines and Instruct on cholesterol Referral to dietitian:: Yes 30-day Reassessments:: Progressing Diabetes (Other Core Measures) Diabetes Type: Not Applicable Weight Mgt (Other Care) Height: 5 ft 8 in Weight:: 184 lb BMI: 27.9 Diagnosis Overweight/Obesity BMI> 30% ICD-10 E66: No Diagnosis High BMI/Morbid Obesity BMI> 35% ICD-10 Z68: No Outcomes/Goals: Pt sets, maintains & shows weight loss goal & trend during rehab Intervention/Plan: Instruct on ideal BMI & set weight loss goal w/patient 30 day Reassessments:: Met Healthy Eating Habits Will attend diet classes:: Yes Outcomes/Goals:: Consume diet rich in vegs,fruits,whole grain/high fiber,fish,lean meat and Limit sat/trans fats,cholesterol & added salts & sugars Intervention/Plan:: Assess current eating habits 30-day Reassessments:: Progressing Education Gave educational materials for:: Healthy eating Nutrition - Final Assessment Weight Mgt (Other Care) Height: 5 ft 8 in Weight:: 184 lb BMI: 27.9
[2023-06-01 13:55] VITALS: BP 134/78
[2023-06-01 14:04] VITALS: BP 134/78; BMI 27.9
== END 2023-06-14 23:59 ==
LOC: CR 09:30
PROVIDERS: PCP Internal Medicine; Referring Provider Internal Medicine Cardiovascular Disease; Visit Provider Internal Medicine Cardiovascular Disease
DX: Z95.1 Presence of aortocoronary bypass graft (principal); I25.10 Atherosclerotic heart disease of native coronary artery without angina pectoris
CPT/HCPCS: 93798

== ENCOUNTER → 2023-06-25 | Outpatient (CLI) | payer MEDICARE, OTHER, SELFPAY ==
[2023-06-01 14:04] VITALS: BMI 27.9
--- NOTE | 2023-06-25 08:07 | PCM.CR.ITP ---
Nutrition - Initial Assessment Weight Mgt (Other Care) Height: 5 ft 8 in Weight:: 183 lb BMI: 27.8 Psychosocial - Initial Assess Target Goals Target Goals Patient Health Questionnaire PHQ-9 Screening 90-Day Re-eval Assessment: 1. Little interest or pleasure in doing things: Not at all 2. Feeling down, depressed, or hopeless: Not at all 3. Trouble falling or staying asleep, or sleeping too much: Several days 4. Feeling tired or having little energy: Not at all 5. Poor appetite or overeating: Not at all 6. Feeling bad about yourself -- or that you are a failure or have let yourself or your family down: Not at all 7. Trouble concentrating on things, such as reading the newspaper or watching television: Several days 8. Moving or speaking so slowly that other people could have noticed. Or the opposite - being so fidgety or restless that you have been moving around a lot more than usual: Not at all 9. Thoughts that you would be better off , or of hurting yourself in some way: Not at all How difficult have these problems made it for you to do your work, take care of things at home, or get along with other people?: Not difficult at all Total Score: 2 Self-Efficacy 6-Item Scale 90-Day Re-eval Assessment: We would like to know how confident you are in doing certain activities. Please select your confidence level for: Fatigue Select Number: 8 Physical Discomfort or Pain Select Number: 8 Emotional Distress Select Number: 8 Other Symptoms or Health Problems Select Number: 8 Different Tasks and Activities Select Number: 9 Medication Select Number: 10 Total Score:: 8 Nutrition Survey Nutrition Survey Instructions Scoring Instructions Exercise - 90-day Assessment Visit Date of Eval: 06/25/23 Session #:: 34 Physician Prescribed Exercise Modalities: Treadmill, Airdyne and NuStep Frequency: 3x/week for 12 weeks [36 sessions] Intensity: 60-80% of age predicted maximum heart rate reserve Duration: 30 - 45 minutes Current METSs:: 7 Target Heart Rate:: 108-123 Current RPE:: 13-15 Maximum Excercise HR:: 105 Resting Blood Pressure: 124/74 Maximum Exercise Blood Pressure: 168/90 EKG Type: NSR to ST with an isolated pac,pvc Outcomes & Goals Goals:: Verbalizes understanding of THR, RPE & goal METS by session 6, Documents in home exercise log/reports 30 min aerobic 5 day/wk by DC, Demonstrates accurate pulse taking by DC and Other additional outcome/goals: see below Intervention & Plan Exercise Program Goals: Instruct on personal THR & RPE, Instruct on MET level & personal MET goal, Show patient to take own pulse /validate performance until accurate, Instruct on home exercise and Other additional plan/int 30-day Reassessments 30 day Reassessments:: Met Physical Activity Home Exercise Physical Activity - Home Exercise: Safe Exercise, Warm-up, Self-monitoring, Cool-Down, Home Exercise > 30 min Daily and Sitting Time <3 hours/daily Outcomes & Goals Outcomes/Goals: Demonstrates correct Warm-up/exercise Cool-Down (S3) if = 2.5 METs, Verbalizes symptoms of exercise intolerance by Session 3 (S3), Demonstrate safe equipment use (S3) & follows exercise prescrition (6) and Other: See below Intervention & Plan Plan/Intervention: Instruct warm-up & cool-down if exercising at > 2 METs, Instruct on symptoms of exercise intolerance & actions to take, Instruct & monitor on saf, Assess intial functional capacity & safety risk and Other See below 30-day Reassessments 30 day Reassessments:: Met Nutrition - 30-Day Assessment Weight Mgt (Other Care) Height: 5 ft 8 in Weight:: 183 lb BMI: 27.8 Nutrition - 60-Day Assessment Weight Mgt (Other Care) Height: 5 ft 8 in Weight:: 183 lb BMI: 27.8 Core - 90 Day Assessment Visit Date of Eval: 06/25/23 Session #:: 34 Medication Compliance Preventative Medication(s):: Aspirin, Statin/lipid and Beta linda H/O mental health issues: depression, anxiety, or addiction?: No Doesn?t believe in the benefits of treatment?: No Believes medications are unnecessary or harmful?: No Has a concern about medication side effects?: No Expresses concern over the cost of medications?: No Outcomes/Goals: Verbalizes medications,desired effect & common side effects @ DC, Pt self-reports following medication regimen, Keeps card in wallet w/medications listed by DC and Other additional outcome/goals: Interventions/plans: Instruct on medication effects & side effects, Review medication list w/patient every two weeks, Instruct importance of taking meds as ordered & assist problem solving and Other additional 30-day Reassessments:: Met Tobacco Use Tobacco Use: Non-smoker Hypertension Hypertension Diagnosis:: Hypertension ICD-10 I10 Resting Blood Pressure:: 124/74 [place] [employer] Hypertension Guidelines Peak Exercise Blood Pressure:: 168/90 Outcomes/Goals: Able to verbalize/achieve optimal blood pressure <130/80, Incorporates diet changes & exercise for blood pressure control by DC and Other additional outcomes/goals Interventions/plan: Instruct on optimal blood pressure, hypertension & medications, Instruct on effects of sodium, alcohol, stress, exercise &hypertension and Other additional plan/interventions 30 day Reassessments:: Met Tobacco Cessation Referral Smoking Cessation Referral:: No Individual Education/Counseling:: No Education Schedule Given:: Yes Psychosocial - 30-Day Assess Target Goals Target Goals Psychosocial - 60-Day Assess Target Goals Target Goals Psychosocial - 90-Day Assess VIsit Date of Eval: 06/25/23 Session #:: 34 History of previous Mental disease:: No Target Goals Target Goals Psychosocial - Final Assessmen Target Goals Target Goals Nutrition - 90-Day Assessment Visit Date of Eval: 06/25/23 Session #:: 34 Cholesterol/Lipids (Other Core Measures) Determine presence & major risk factors that modify LDL goal: Hypertension or hypertensive medication, Low HDL cholesterol <40 mg/dL*, Family history of premature CHD in Male < 55 years: female <65 yearsFa and Age men > 45 years; women >/= 55 years Outcomes/Goals: Pt IDs own risk factors & lifestyle modifications by Session 10, Verbalizes symptoms of angina & response by session 3., Pt independently manages and Other Additional Outcomes/Goals: Intervention/Plan: Advocate for lipid panel cholesterol medication if applicable, Instruct on personal lipid levels & lipid goals/NCEP guidelines, Instruct on cholesterol and Other additional plan/int 30-day Reassessments:: Met Weight Mgt (Other Care) Height: 5 ft 8 in Weight:: 183 lb BMI: 27.8 Diagnosis Overweight/Obesity BMI> 30% ICD-10 E66: No Diagnosis High BMI/Morbid Obesity BMI> 35% ICD-10 Z68: No Outcomes/Goals: Pt sets, maintains & shows weight loss goal & trend during rehab and Other additional outcomes/goals Intervention/Plan: Instruct on ideal BMI & set weight loss goal w/patient, Assist pt to ID & incorporate diet changes for weight loss by S9, Refer to Structured Weight Loss program as appropriate, Encourage goal of using 250-300dcal per session for weight loss and Other additional plan/interventions 30 day Reassessments:: Met Healthy Eating Habits Will attend diet classes:: Yes Outcomes/Goals:: Consume diet rich in vegs,fruits,whole grain/high fiber,fish,lean meat, Limit sat/trans fats,cholesterol & added salts & sugars and Other additional outcome/goals: Intervention/Plan:: Assess current eating habits and Other Additional plan/interventions 30-day Reassessments:: Met Education Gave educational materials for:: Signs & symptoms of hypoglycemia, Signs & symptoms of hyperglycemia, Relate diabetes to coronary artery disease and Healthy eating Nutrition - Final Assessment Weight Mgt (Other Care) Height: 5 ft 8 in Weight:: 183 lb BMI: 27.8
[2023-06-25 08:17] VITALS: BP 124/74
[2023-06-25 08:23] VITALS: BP 124/74; BMI 27.8
[2023-06-25 11:24] LABS: PSA,Total- Diagnostic 8.41 ng/mL (0.0-4.0)
== END | disposition home or self-care (01) ==
LOC: LAB 09:48
PROVIDERS: PCP Internal Medicine; Referring Provider Urology; Visit Provider Urology
DX: C61 Malignant neoplasm of prostate (principal)
CPT/HCPCS: 36415; 84153

== ENCOUNTER 2023-06-27 09:30 | Outpatient (RCR) | payer MEDICARE, OTHER, SELFPAY ==
[2023-06-01 14:04] VITALS: BMI 27.9
[2023-06-15 00:21] VITALS: BP 134/78; BP 148/80
== END 2023-07-15 23:59 ==
LOC: CR 09:30
PROVIDERS: PCP Internal Medicine; Referring Provider Internal Medicine Cardiovascular Disease; Visit Provider Internal Medicine Cardiovascular Disease
DX: Z95.1 Presence of aortocoronary bypass graft (principal); I25.10 Atherosclerotic heart disease of native coronary artery without angina pectoris
CPT/HCPCS: 93798

== ENCOUNTER 2023-08-08 11:52 | Emergency (ER) | payer MEDICARE, OTHER, SELFPAY ==
[2023-06-25 08:23] VITALS: BMI 27.8
[2023-08-08 11:52] VITALS: BP 119/70; PULSE 63; RESP 16; TEMP 36.6; O2SAT 98; BMI 29.6
[2023-08-08 12:42] LABS: Absolute Lymphocyte Count 1.48 X10^3/uL (0.83-4.51); Absolute Neutrophil Count 4.7 X10^3/uL (2.0-7.7); Basophil# 0.05 X10^3/uL; Basophil% 0.7 % (0-1); Eosinophil# 0.08 X10^3/uL; Eosinophils% 1.2 % (0-5); Hematocrit 42.6 % (40-54); Hemoglobin 14.3 g/dL (13.0-16.5); Lymphocyte # 1.48 X10^3/ul (0.83-4.51); Lymphocyte % 22.1 % (19-41); Mean Corp Hgb Conc 33.6 g/dL (32-36); Mean Corpuscular Hgb 29.2 pg (27.0-32.0); Mean Corpuscular Volume 86.9 fL (80-94); Mean Platelet Vol. 11.2 fl (6.2-12.0); Monocyte# 0.41 X10^3/uL; Monocyte% 6.1 % (0-10); NRBC Flagged by Analyzer 0 % (0-5); Neutrophil # 4.66 X10^3/uL (2.7-7.7); Neutrophil % 69.6 % (47-70); Platelet Count 249 K/mm3 (150-450); RBC Distribution Width CV 15.3 % (11.6-14.6); White Blood Count 6.7 K/mm3 (4.4-11.0)
[2023-08-08 12:49] LABS: Anion Gap 7 (5-15); BUN 17 mg/dL (7-18); Calcium,Total 8.9 mg/dL (8.5-10.1); Chloride 107 mmol/L (98-107); Creatinine, Serum 1.55 mg/dL (0.70-1.30); EST Glomerular Filtration Rate 46 mL/min (>60); Est Glom Filt Rate - Afr Amer 56 mL/min (>60); Estimated Creatinine Clearance 43.11 ml/min; Glucose 121 mg/dL (74-106); Sodium Level 139 mmol/L (136-145)
[2023-08-08 13:26] VITALS: BP 125/76; BP 137/65; BP 153/62; PULSE 61; PULSE 63; PULSE 65
--- NOTE | 2023-08-08 13:31 | EX.ED.DYSGE1 ---
HPI History of Present Illness Chief Complaint: Syncope Detail of Chief Complaint: Syncope Onset/Context/Timing Onset: Today and Hours Context: Sudden Onset Timing: Intermittent Quality: Passed out woke on the floor Location: [facility] Current Severity: Gone Maximum Severity: No prodrome Worsened by: Unknown Relieved by: Unknown Associated Symptoms Associated Symptoms: None Narrative Narrative: Patient is a 77-year-old male status post three-vessel bypass surgery this past summer who is at [facility]. He goes to [facility] Sunday, Sunday and Sunday. He states last Sunday he had dizziness while working out. He did not pass out, however. Today while working out he apparently did not feel right and passed out. He denies change in vision. He denies chest pain or shortness of breath. He denied feeling nauseous. He was not described as being pale and he was not diaphoretic. Patient has no recall other than awakening on the floor. He denies recent dark or black stools. He does have a history of reflux and Villasenor's esophagitis. He denies fever, chills night sweats. He denies headache, visual, ocular auditory symptoms. He denies chest pain, orthopnea or PND. He presently denies dyspnea and did not have dyspnea on exertion while at the gym. Patient is on baby aspirin and Plavix. He is not on anticoagulant. He denies headache. Prior similar symptoms: No Recent Illness/Hospitalization: No PFSH PFS Medical History Atherosclerotic heart disease of cahto coronary artery without angina pectoris Home Medications aspirin 81 mg tablet,delayed release 81 mg PO DAILY@0800 04/28/15 [History Last Taken 01/15/23] famotidine 40 mg tablet 40 mg PO QHS 08/17/21 [History Last Taken Unknown] multivitamin 1 tab PO DAILY 08/17/21 [History Last Taken Unknown] alfuzosin 10 mg tablet,extended release 24 hr 10 mg PO DAILY 03/01/23 [History Last Taken Unknown] ibuprofen 200 mg tablet (Advil) 200 mg PO Q6H PRN 03/01/23 [History Last Taken Unknown] rosuvastatin 40 mg tablet 40 mg PO DAILY #90 tabs 03/27/23 [Rx Last Taken Unknown] esomeprazole magnesium 40 mg capsule,delayed release 40 mg PO BID #180 caps 06/15/23 [Rx Last Taken Unknown] acetaminophen 500 mg tablet (Tylenol Extra Strength) 1,000 mg PO ONCE PRN 07/02/23 [History Last Taken Unknown] insta flex joint support PO DAILY 07/02/23 [History Last Taken Unknown] metoprolol succinate 100 mg tablet,extended release 24 hr 100 mg PO DAILY 07/02/23 [History Last Taken Unknown] omega-3 fatty acids 1,000 mg capsule 1,000 mg PO BID 07/02/23 [History Last Taken Unknown] vitamin E mixed 400 unit tablet unit PO 07/02/23 [History Last Taken Unknown] Allergy/AdvReac Type Severity Reaction Status Date / Time No Known Allergies Allergy Verified 07/02/23 09:14 Family History Other ALS (amyotrophic lateral sclerosis) Cancer Diabetes Heart disease Hypertension Parkinsons Surgical History History of cholecystectomy (~2011) History of coronary artery bypass surgery (02/01/23) History of left heart catheterization (01/15/23) Social History (Updated 08/08/23 @ 13:[address] Terrence Fontana MD) household members: spouse Smoking Status: Never smoker alcohol intake: current alcohol intake frequency: holidays/special occasions only substance use type: does not use caffeine: No ROS ROS ED Constitutional Constitutional ED: Denies chills, fever(s), subjective or sweats Eyes Eyes: Denies blurry vision or change in vision ENT ENT ED: Denies ear pain, rhinorrhea or sore throat Cardiovascular Cardiovascular: Denies chest pain, orthopnea, palpitations, paroxysmal nocturnal dyspnea or racing heartbeat Respiratory/Chest Respiratory/Chest: Denies cough, dyspnea, dyspnea on exertion, orthopnea or paroxysmal nocturnal dyspnea Gastrointestinal Gastrointestinal: Denies abdominal pain, melena, nausea or vomiting Genitourinary Genitourinary ED: Denies dysuria, hematuria or urinary frequency Musculoskeletal Musculoskeletal: Denies arthralgias, back pain or myalgias Integumentary Denies rash Neurologic Neurologic: Denies headache(s) or paresthesias Psychiatric Psychiatric: Denies anxiety or depression Hematologic/Lymphatic Hematologic/Lymphatic: Reports systems reviewed and no addt'l complaints, except as documented EXAM Physical Exam Const Vital Signs: 08/08/23 11:52 08/08/23 11:52 08/08/23 13:26 Temperature 97.8 F Temperature Source Oral Pulse Rate 63 Pulse Rate [Lying] 61 Pulse Rate [Sitting (for 1 minute prior to obtaining)] 63 Pulse Rate [Standing (for 1 minute prior to obtaining)] 65 Respiratory Rate 16 Respiratory Effort Normal Respiratory Pattern Normal Blood Pressure 119/70 Blood Pressure [Lying] 153/62 H Blood Pressure [Sitting (for 1 minute prior to obtaining)] 137/65 H Blood Pressure [Standing (for 1 minute prior to obtaining)] 125/76 H Blood Pressure Mean 86 Blood Pressure Mean [Lying] 92 Blood Pressure Mean [Sitting (for 1 minute prior to obtaining)] 89 Blood Pressure Mean [Standing (for 1 minute prior to obtaining)] 92 Pulse Ox 98 Oxygen Delivery Method Room Air 08/08/23 14:15 Temperature Temperature Source Pulse Rate 60 Pulse Rate [Lying] Pulse Rate [Sitting (for 1 minute prior to obtaining)] Pulse Rate [Standing (for 1 minute prior to obtaining)] Respiratory Rate 14 Respiratory Effort Respiratory Pattern Blood Pressure 140/87 H Blood Pressure [Lying] Blood Pressure [Sitting (for 1 minute prior to obtaining)] Blood Pressure [Standing (for 1 minute prior to obtaining)] Blood Pressure Mean 104 Blood Pressure Mean [Lying] Blood Pressure Mean [Sitting (for 1 minute prior to obtaining)] Blood Pressure Mean [Standing (for 1 minute prior to obtaining)] Pulse Ox 97 Oxygen Delivery Method Room Air Positive well nourished and well developed General Appearance ED: well developed and NAD; Negative for cyanotic, diaphoretic or pallor HEENT Reports moist mucous membranes HEENT Narrative: Head is atraumatic and normocephalic. Ears are normal. TMs are normal. Nares patent. Posterior pharynx out erythema or exudate. Uvula is midline. No deviation tongue with protrusion. Eyes PERRL and EOMs intact bilaterally General Eye ED: Negative for pale conjunctiva or scleral icterus Neck no lymphadenopathy, supple and no JVD Neck Narrative: Trachea is midline. There is no carotid bruits noted. Chest Wall inspection of chest normal and palpation of chest normal Resp normal respiratory effort and clear to auscultation bilaterally Cardio regular rate, regular rhythm, S1 normal heart sound, S2 normal heart sound and no murmurs GI normal to inspection, nondistended, normoactive bowel sounds, non-tender, non-distended and no masses; Negative for hepatosplenomegaly Auscultation: normoactive bowel sounds Palpation: soft Back/Spine no CVA tenderness Cervical Spine: Negative for cervical spine tenderness Thoracic Spine / Upper Back: Negative for thoracic spinal tenderness Lumbar Spine / Lower Back: Negative for lumbar spinal tenderness Extremity normal to inspection General Extremety ED: Negative for tenderness Neuro oriented x3, CN's II-XII intact bilaterally and no sensory deficits noted Sensorium / Orientation: alert Motor Exam: strength 5/5 throughout Psych mental status grossly normal Skin no rashes or lesions noted, no wounds and skin turgor normal General Skin Exam: Negative for jaundice or pallor MDM MDM MDM Narrative Medical decision making narrative: Patient with syncope with no prodrome. Will obtain EKG to look for any evidence of dysrhythmia. CBC to assess H&H. BMP to assess elevated BUN to creatinine ratio. Orthostatic vital signs to determine he may be hypovolemic due to working out for 1.5 hours at the gym. Lab Data Attestation: I reviewed the patient's lab results. Lab results narrative: CBC is unremarkable. Basic metabolic panel was elevated creatinine 1.55. Glucose elevated 121 with a normal CO2 anion gap. Creatinine is elevated from baseline. Labs: Laboratory Results - last 24 hr 08/08/23 12:30 WBC 6.7 RBC 4.90 Hgb 14.3 Hct 42.6 MCV 86.9 MCH 29.2 MCHC 33.6 RDW Std Deviation 49.0 H RDW Coeff of Kiersten 15.3 H Plt Count 249 MPV 11.2 Immature Gran % (Auto) 0.300 Neut % (Auto) 69.6 Lymph % (Auto) 22.1 Thayer % (Auto) 6.1 Eos % (Auto) 1.2 Baso % (Auto) 0.7 Absolute Neuts (auto) 4.7 Absolute Lymphs (auto) 1.48 Nucleated RBC % 0 Sodium 139 Potassium 4.0 Chloride 107 Carbon Dioxide 25.0 Anion Gap 7 BUN 17 Creatinine 1.55 H Estim Creat Clear Calc 43.11 Est GFR (MDRD) Af Amer 56 L Est GFR (MDRD) Non-Af 46 L BUN/Creatinine Ratio 11.0 Glucose 121 H Calcium 8.9 EKG Initial EKG: Attestation: I personally reviewed and interpreted this EKG as follows: Interpretation: Sinus Rhythm (Rate is 61. There is an RR prime in V1 and V2 which probably represents an incomplete right bundle branch block. IA interval is 208 ms per cures duration 100 ms. QT duration 424 ms. [place] is normal.) Treatment and Re-Evaluation :: Patient and family were informed of laboratory results. Patient was told he needs to drink more fluids. He will need repeat blood work in 1 to 2 weeks to assess his creatinine. Discharge Plan Triage Chief Complaint: Syncope ED Provider: Terrence Fontana Dx/Rx/DC Orders Clinical Impression: Syncope and collapse, Benign essential hypertension, Atherosclerotic heart disease of cahto coronary artery without angina pectoris, Prostate cancer, Hypovolemia, Elevated serum creatinine Instructions: ED Dehydration (Adult), ED Fainting, Uncertain Cause Prescriptions: No Action famotidine 40 mg tablet 40 mg PO QHS multivitamin Tablet 1 tab PO DAILY insta flex joint support PO DAILY alfuzosin 10 mg tablet extended release 24 hr 10 mg PO DAILY Rx Instructions: administer after the same meal each day ibuprofen [Advil] 200 mg tablet 200 mg PO Q6H PRN acetaminophen [Tylenol Extra Strength] 500 mg tablet 1,000 mg PO ONCE PRN metoprolol succinate 100 mg tablet extended release 24 hr 100 mg PO DAILY vitamin E mixed 400 unit tablet PO omega-3 fatty acids 1,000 mg capsule 1,000 mg PO BID rosuvastatin 40 mg tablet 40 mg PO DAILY Qty: 90 3RF aspirin 81 MG tablet 81 mg PO DAILY@0800 esomeprazole magnesium 40 mg capsule,delayed release(DR/EC) 40 mg PO BID Qty: 180 3RF Primary Care Provider: Ayanna Sharp Referrals: Ayanna Sharp MD [Primary Care Provider] - 1 Week Activity Restrictions/Additional Instructions: 1. ED increase your fluid intake especially on days that you work out at [employer] 2. You need to contact Dr. Ayanna Sharp's office. Repeat blood work in 1 week Disposition Disposition: Home, Self Care
[2023-08-08 14:15] VITALS: BP 140/87; PULSE 60; RESP 14; O2SAT 97
[2023-08-08] MEDS: 0.9% Normal Saline (1000mL) 1,000 ML 999 ML IV (14:16)
[2023-08-08 15:52] VITALS: PULSE 64
== END 2023-08-08 15:53 | disposition home or self-care (01) ==
PROVIDERS: Emergency Provider Emergency Medicine; PCP Internal Medicine; Visit Provider Emergency Medicine
DX: R55 Syncope and collapse (principal); C61 Malignant neoplasm of prostate; I25.10 Atherosclerotic heart disease of native coronary artery without angina pectoris; I10 Essential (primary) hypertension; E86.1 Hypovolemia; Z79.02 Long term (current) use of antithrombotics/antiplatelets; Z79.82 Long term (current) use of aspirin; R79.89 Other specified abnormal findings of blood chemistry
CPT/HCPCS: 80048; 85025; 93005; 96360; 96361; 99284; J7030

== ENCOUNTER → 2023-08-21 | Outpatient (CLI) | payer MEDICARE, OTHER, SELFPAY ==
[2023-06-25 08:23] VITALS: BMI 27.8
== END | disposition home or self-care (01) ==
LOC: PSN 12:55
PROVIDERS: PCP Internal Medicine; Referring Provider Nurse Practitioner Family; Visit Provider Nurse Practitioner Family
DX: R55 Syncope and collapse (principal); R00.1 Bradycardia, unspecified
CPT/HCPCS: 93225; 93226

== ENCOUNTER → 2023-12-03 | Outpatient (CLI) | payer MEDICARE, OTHER, SELFPAY ==
[2023-06-25 08:23] VITALS: BMI 27.8
[2023-12-03 12:11] LABS: Anion Gap 5 (5-15); BUN 14 mg/dL (7-18); BUN/Creat Ratio 12.4 RATIO (10-20); Calcium,Total 8.9 mg/dL (8.5-10.1); Chloride 106 mmol/L (98-107); Creatinine, Serum 1.13 mg/dL (0.70-1.30); EST Glomerular Filtration Rate 67 mL/min (>60); Est Glom Filt Rate - Afr Amer 81 mL/min (>60); Glucose 121 mg/dL (74-106); Magnesium 2.1 mg/dL (1.6-2.6); Potassium 4.2 mmol/L (3.5-5.1); Sodium Level 138 mmol/L (136-145)
[2023-12-05 09:16] LABS: AST(SGOT) 28 U/L (15-37); Alanine Aminotransfer ALT/SGPT 27 U/L (16-61); Albumin, Serum 3.7 g/dL (3.2-5.0); Alkaline Phosphatase 52 U/L (45-117); Bilirubin, Direct 0.23 mg/dL (0.00-0.30); Cholesterol 143 mg/dL (200); Globulin 3.4 g/dL (2.2-4.2); High Density Lipoprotein 44 mg/dL; Protein, Total 7.1 g/dL (6.4-8.2); Thyroid Stim Hormone (TSH) 2.13 uIU/mL (0.358-3.74); Triglycerides 130 mg/dL; Very Low Density Lipoprotein 26 mg/dL (5-40)
== END | disposition home or self-care (01) ==
LOC: LAB 10:42
PROVIDERS: PCP Internal Medicine; Referring Provider Internal Medicine; Visit Provider Internal Medicine
DX: Z13.220 Encounter for screening for lipoid disorders (principal); C61 Malignant neoplasm of prostate; R79.89 Other specified abnormal findings of blood chemistry; R00.1 Bradycardia, unspecified; R55 Syncope and collapse; E86.1 Hypovolemia; I10 Essential (primary) hypertension; E78.5 Hyperlipidemia, unspecified
CPT/HCPCS: 36415; 80048; 80061; 80076; 83735; 84153; 84443

== ENCOUNTER → 2023-12-26 | Outpatient (CLI) | payer MEDICARE, OTHER, SELFPAY ==
[2023-06-25 08:23] VITALS: BMI 27.8
[2023-12-26 12:06] LABS: PSA,Total- Diagnostic 6.29 ng/mL (0.0-4.0)
== END | disposition home or self-care (01) ==
PROVIDERS: PCP Internal Medicine; Referring Provider Urology; Visit Provider Urology
DX: C61 Malignant neoplasm of prostate (principal)
CPT/HCPCS: 36415; 84153

== ENCOUNTER → 2024-04-09 | Outpatient (CLI) | payer MEDICARE, OTHER, SELFPAY ==
[2023-06-25 08:23] VITALS: BMI 27.8
--- NOTE | 2024-04-09 08:04 | CT_ITS ---
PROCEDURE: CT LEFT KNEE WITHOUT CONTRAST REASON FOR EXAM: Male, 78 years old. Preoperative planning for the MakoPl[employer] Robotic knee surgery. Knee pain. TECHNIQUE: Transaxial CT of the hip, knee and ankle were obtained. Coronal and sagittal reconstruction images of the knee were provided. Individualized dose optimization techniques were used for this CT. COMPARISON: None. FINDINGS: Standard protocol for the preoperative planning for the MakoPl[employer] robotic knee surgery was performed. 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 CT/Extremity Lower without Contra IMPRESSION: Preoperative Mako[employer] Robotic knee surgical CT evaluation with findings as described above. Electronically Signed: Heron Lord MD at 10:01 EDT ,
== END | disposition home or self-care (01) ==
LOC: CT 07:51
PROVIDERS: PCP Internal Medicine; Referring Provider Specialist; Visit Provider Specialist
DX: M17.12 Unilateral primary osteoarthritis, left knee (principal); M21.162 Varus deformity, not elsewhere classified, left knee
CPT/HCPCS: 73700

== ENCOUNTER 2024-04-16 08:00 | Outpatient (RCR) | payer MEDICARE, OTHER, SELFPAY ==
[2023-06-25 08:23] VITALS: BMI 27.8
--- NOTE | 2024-02-27 07:15 | HP.PTEVAL ---
Patient's Visit Information Visit Information Visit Information: BRANDEE HINSON is a 78 year old M referred to Physical Therapy by KUMAR KimM with a diagnosis of Bilat Plantarfascitis. 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 Pt notes during his recovery, he would walk a lot for his cardiac rehab. Pt notes he made it all the way up to 5 miles, and then suddenly started to feel B foot pain. Pt reports his pain has never went away yet. 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 Pt reports occasional sensation of tingling in B feet, kind of like he is walking on bubbles. Pt reports he has had recent x-rays which had no significant findings. Pt denies sleep difficulty at this time secondary to B foot pain. Pt reports he has stairs at home, but never has to use them. 1/10 pain while sitting here at rest, 8/10 pain at worst (when he is walking on a treadmill) Pain B feet: Pain Intensity (Out of 10): 1 Pain Intensity Range: 8 Objective Objective: Neuro: B LE sensation is WNL to light touch Palpation: Pt is very tender along the platarfascia of B LE's. No obvious deformity at this time ROM: R ankle DF= 5, PF= 50; L ankle DF= 0, PF= 50 Degrees MMT: R ankle DF= 33, PF= 19 #F; L ankle DF= 34, PF= 29 #F TU seconds Balance/Special Test Scores Lower Extremity Functional Score: 43 Goals Goal 1:: Decrease B foot pain to aid with increasing steve for ambulation Goal Time Frame: 4-6 Weeks Goal 2:: Increase B ankle DF ROM x 10 degrees to aid with decreasing pain Goal Time Frame: 4-6 Weeks Goal 3:: I with HEP Goal Time Frame: 4-6 Weeks Rehabilitation Potential Physical Therapy Diagnosis: Pt has B heel pain, weakness, and limited ROM secondary to B foot PFS Rehabilitation Potential: Good Anticipated Interventions Patient/Client Instruction: Educate patient on: Condition and Plan of Care For the Purpose of:: To improve self management Therapeutic Exercise to Include: Flexibilty training, Passive ROM and Active ROM For the Purpose of:: To decrease pain and To increase ROM Manual Therapy Techniques to Include: Soft tissue mobilization For the Purpose of:: To decrease pain, To increase ROM and To improve muscle performance and motor function Ultrasound (thermal/non thermal): Yes For the Purpose of:: To decrease pain Text: Thank you for the opportunity to evaluate your patient. For Medicare and Medicare HMO plans, please review the plan of care and approve it. It will need to be FAXED BACK to us at [phone] for Medicare purposes. For Medicare only, by signing this I certify the plan of care. Please let me know if there are questions or concerns regarding this plan of care. Physician Signature: Date:
--- NOTE | 2024-04-16 08:38 | HP.PTDCSUM ---
Discharge Summary D/C summary: It has been my pleasure to treat BRANDEE HINSON referred by Dr. Luisito Armando, DPM, with the diagnosis of Bilat Plantarfascitis for a total of 9 visit(s). Discharge Date: Please see the following information for a summary of their discharge status. Subjective Subjective: I am feeling much better overall Pain B feet: Pain Intensity (Out of 10): 2 Overall Improvement % Improvement: 50 Objective Objective/Function: B foot pain is 2/10 currently. Still increases to 8/10 at worst with prolonged ambulation Ankle DF ROM: R= 7, L= 12 degrees Pt is I with HEP Goals Goal 1:: Decrease B foot pain to aid with increasing steve for ambulation Goal Progress: Progressing Goal 2:: Increase B ankle DF ROM x 10 degrees to aid with decreasing pain Goal Progress: Progressing Goal 3:: I with HEP Goal Progress: Goal Met Plan Plan: Discontinue to HEP D/C Information d/c sentence: If there are questions or concerns regarding this patient's physical therapy, please feel free to call me at [phone]. Thank you for the referral of this patient. Sincerely, Vic Martin, PT, ATC Balance/Gait/Functional tests Balance/Special Test Scores Lower Extremity Functional Score: 44 Improvement % Improvement: 50
== END 2024-04-16 19:00 | disposition home or self-care (01) ==
LOC: PT 08:00
PROVIDERS: PCP Internal Medicine; Referring Provider Podiatrist; Visit Provider Podiatrist
DX: M72.2 Plantar fascial fibromatosis (principal)
CPT/HCPCS: 97110; 97161; 97530

== ENCOUNTER 2024-04-28 12:39 | Observation (INO) | payer MEDICARE, OTHER, SELFPAY ==
[2023-06-25 08:23] VITALS: BMI 27.8
--- NOTE | 2024-04-09 08:04 | EKG12_ITS ---
Test Reason : PREOP Blood Pressure : / mmHG Vent. Rate : 063 BPM Atrial Rate : 063 BPM P-R Int : 206 ms QRS Dur : 098 ms QT Int : 414 ms P-R-T Axes : -06 -24 030 degrees QTc Int : 423 ms Normal sinus rhythm Normal ECG Confirmed by Koen Sanderson ([id number]), assignment desk editor CHILO WILLIS ([id number]) on 04/10/2024 5:51:32 AM Referred By: Hilton Wakefield Confirmed By:Keon Sanderson
[2024-04-09 09:31] LABS: Absolute Lymphocyte Count 1.53 X10^3/uL (0.83-4.51); Absolute Neutrophil Count 3.3 X10^3/uL (2.0-7.7); Basophil# 0.05 X10^3/uL; Basophil% 0.9 % (0-1); Eosinophil# 0.16 X10^3/uL; Eosinophils% 2.9 % (0-5); Hematocrit 43.6 % (40-54); Hemoglobin 14.1 g/dL (13.0-16.5); Lymphocyte # 1.53 X10^3/ul (0.83-4.51); Lymphocyte % 27.9 % (19-41); Mean Corp Hgb Conc 32.3 g/dL (32-36); Mean Corpuscular Hgb 29.3 pg (27.0-32.0); Mean Corpuscular Volume 90.5 fL (80-94); Mean Platelet Vol. 10.2 fl (6.2-12.0); Monocyte# 0.44 X10^3/uL; NRBC Flagged by Analyzer 0 % (0-5); Neutrophil % 60.1 % (47-70); Platelet Count 229 K/mm3 (150-450); RBC Distribution Width CV 13.2 % (11.6-14.6); RBC Distribution Width SD 43.2 fl (35.1-43.9); Red Blood Count 4.82 M/mm3 (4.6-6.2); White Blood Count 5.5 K/mm3 (4.4-11.0)
[2024-04-09 10:13] LABS: Magnesium 2.1 mg/dL (1.6-2.6)
[2024-04-09 10:16] LABS: Albumin, Serum 3.6 g/dL (3.2-5.0); Anion Gap 4 (5-15); BUN 15 mg/dL (7-18); BUN/Creat Ratio 12.2 RATIO (10-20); Calcium,Total 8.9 mg/dL (8.5-10.1); Chloride 106 mmol/L (98-107); Creatinine, Serum 1.23 mg/dL (0.70-1.30); EST Glomerular Filtration Rate 60 mL/min (>60); Est Glom Filt Rate - Afr Amer 73 mL/min (>60); Glucose 140 mg/dL (74-106); Potassium 4.2 mmol/L (3.5-5.1); Sodium Level 138 mmol/L (136-145)
--- NOTE | 2024-04-21 07:15 | PCM.HP.BLA ---
History and Physical History and Physical Patient Name: Keon Walsh : 1945From:? GREG PEREZ PA-C DATE OF PRE-OPERATIVE EXAM: 04/18/2024 DATE OF SURGERY:? 04/28/2024 SCHEDULED PROCEDURE:? Robotic-assisted left total knee arthroplasty HISTORY OF PRESENT ILLNESS: Preoperative history and physical exam was performed on April 21, 2024.? This is a 78-year-old male who is been having ongoing pain for over 15 years with his left knee.? Patient's pain can reach 7/10 with activities and on average is 3/10.? Pain is increased with going up and down steps, walking, sitting.? He gets occasional instability with the knee.? Pain is located over the medial aspect of the knee.? He has start up pain.? Patient does have past history of bilateral knee surgeries in [address] Keon Fortune.? Patient has attempted conservative measures including physical therapy, home exercises, extra strength Tylenol.? He continues to go to the gym to work on mobility and strength.? However he has seen significant limitation with walking due to the pain and discomfort.? He has difficulty with activities of daily living including anything requiring walking or going up and down steps.? He has difficulty with leisure activities such as golf or walking on any incline or decline.? Patient has obtain surgical clearance from the primary care provider Dr. 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 Tavares.? Patient has medical history pertinent for hypertension, hypercholesterolemia, Villasenor's esophagitis, and prostate cancer.? He has history of heart bypass.? He is currently followed by urologist Dr. Sampson.? He denies past history of DVT or pulmonary embolism.? After failing conservative measures and discussing all treatment options with Dr. Hilton Wakefield, the patient does wish to proceed with a robotic assisted left total knee arthroplasty.? No recent chest pain, shortness of breath, fevers chills or recent infections.? Patient also complains of right knee pain as well.? The plan is for him to have right total knee arthroplasty early next year.? He would like to establish a surgical date for this in July 2024. ? REVIEW OF SYSTEMS: ROS: Const: Reports difficulty sleeping, but denies anorexia, change in appetite, fever, weight change. CV: Denies chest pain, heart murmur, irregular heartbeat and peripheral vascular disease. Resp: Denies asthma, cough, pneumonia, sleep apnea, shortness of breath, tuberculosis and wheezing. GI: Reports heartburn, but denies constipation, diarrhea, nausea, rectal itching, bloody stools and vomiting. : Denies incontinence. Musculo: Reports gait disturbance, leg swelling, pain and weakness, but denies trouble walking. Skin: Denies Raynaud's, history of shingles and tattoo. Neuro: Denies ambulatory dysfunction, dizziness, numbness/tingling and tremor. Psych: Denies anxiety, depression, insomnia, mental illness and stress. Chai/Lymph: Reports bleeding/bruising tendency, but denies anemia and past transfusion. Reviewed and updated. PAST MEDICAL HISTORY: Advance Care Plan: Other Directive, LIVING WILL Effective Date: 12/14/2017 Other Directive, POA Effective Date: 12/14/2017 PMH: Medical Problems: Hiatal Hernia, High Blood Pressure, Hypercholesterolemia, Barrets Esophagus, prostate disease Cancer - prostate Accidents: None Surgical Hx: Scopic View Of Hernia - SEVERAL TIMES Cyst Removed From LT Foot - 36 YRS AGO, Right Knee Arthroscopy - (05/26/2009) DR [email or web address] Left Knee Arthroscopy - (05/26/2009) DR [email or web address] Gallbladder Heart Bypass (CABG) - (01/2023) 5 total Anesthesia Complications: None Assistive Devices: Glasses, Dentures Reviewed and updated. 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 Personal Habits:? Tobacco Use: Patient is a former smoker.Cigarette Use: Former.Alcohol: Occasionally.Drug Use: Denies Use.Enjoy Exercising: Exercises 1-3 X/Week. Reviewed, no changes. VITALS: Ht: 67.2 Wt: 190lb Wt k.184 BMI: 29.6 BP: 118/76 Pulse: 73 Resp: 15 T: 98.0 T: 36.7C Pain Level: 3 O2SatR: 97 ALLERGIES: No Known Drug Allergy MEDICATIONS: Aspirin 81 mg 1 po qday, Crestor 20 mg 1 po qday, Vitamin E 600 Unit 1 cap po daily, Famotidine 40 mg 1 by mouth every day, Metoprolol Succinate ER 100 mg 1 by mouth every day, Multi Vitamin? 1 by mouth every day, [place]-3 Fish Oil 1200 mg daily, Alfuzosin HCL ER 10 mg 1 per day, Esomeprazole Magnesium 40 mg twice a day, Rosuvastatin Calcium 40 mg 1 per day, Joint Support? daily PRE-OP EXAM: General appearance:NORMAL? Other: Eyes: Conjunctivae and lids: NORMAL? Pupils: ERR Ears, Nose, Mouth, and Throat: NORMAL? Other: Inspection of lips, teeth and gums: NORMAL?? Other: Neck: Examination of neck: no masses noted. Respiratory: Assessment of respiratory effort: NORMAL?? Other: ? Auscultation of lungs: clear to auscultation no wheezes, rhonchi or rales. Cardiovascular:? Auscultation of heart: regular rate and rhythm, no murmurs, gallops or rubs. PHYSICAL EXAMINATION: Patient does walk with an antalgic gait with varus thrust.? Patient's left knee is without erythema or signs of infection.? He has moderate effusion.? There is tenderness to palpation along the medial and lateral joint line.? He has varus alignment which is only partially correctable.? Range of motion: 0 extension to 120 flexion.? Stable to varus/valgus stress test, stable to anterior/posterior drawer exam with firm endpoint.? Sensation intact to light touch. 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 IMPRESSION: 1.? 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 Severe right knee osteoarthritis with varus deformity 3.? Hypertension 4.? Hypercholesterolemia 5.? Villasenor's esophagitis 6.? Prostate disease and cancer 7.? History of coronary artery bypass grafting 8.? Overweight with BMI 29.6 PLAN: Dr. Hilton Wakefield did discuss and review with the patient all treatment options including surgical versus nonsurgical options.? Patient does wish to proceed with the above-stated procedure.? Potential risks, benefits, and complications of the procedure were discussed in detail including but not limited to , infection, nerve and blood vessel damage, persistent pain, numbness, tingling, paresthesias, blood clot, pulmonary embolism, and requirement for possible further surgery.? The patient expressed full understanding and has no further questions for the doctor.? Patient does agree to proceed with the above-stated procedure and has signed the surgery consent form. POST-OP MEDICATION PLAN: Pain Medications:? Postoperative pain regimen will be initiated in the hospital by Dr. iHlton Wakefield.? We will avoid nonsteroidal anti-inflammatories due to his cardiac history.? We also discussed with his prostate disease there is potential for urinary retention post-operatively.? He will continue with his current medication for this.? He did voice understanding.? He will bring his walker to the hospital. DVT Prophylaxis: Due to patient's prostate cancer we will proceed forward with Xarelto 10 mg once daily for 2 weeks postoperatively.? This will be followed by aspirin 81 mg twice daily for an additional 2 weeks.? He denies past history of DVT or pulmonary embolism. This dictation was created using voice recognition software. Phonetic and/or grammatical errors may exist. ___? I have re-examined the patient.? There are no clinical changes since date of exam. ___? See progress notes for changes. ___? Dictated on admission Date: ? Time: Signature:
[2024-04-28] VITALS (15 sets, daily range): BP systolic 115–151; BP diastolic 64–89; PULSE 68–83; RESP 16–18; TEMP 36.1–37; O2SAT 93–99; BMI 28.8
--- NOTE | 2024-04-28 09:30 | PRE.ANES_ITS ---
ASA Classification* ASA Classification ASA Classification: 3 Assessment & Plan Anesthesia* Anesthesia Assessment Anesthesia Assessment: Discussed sedation and/or anesthesia options, risks, benefits, and alternatives with patient/parents/legal guardian/POA. Questions invited. The patient/parents/legal guardian/POA seems to understand and agrees to proceed with anesthesia plan. Reviewed the physical assessment, medical history, allergy history and patient home medications list prior to surgery/procedure/anesthetic and documented any changes. Performed airway and anesthesia risk assessments. Anesthesia Type Anesthesia Type: General (aortic stenosis, adductor canal block consented) Anesthesia Focused Assessment* Airway Assessment Mouth opens: >3 cm Mallampati Score: II Focused Labs Anesthesia Preop lab: CBC WBC 5.5 K/mm3 (4.4-11.0) 04/09/24 08:41 RBC 4.82 M/mm3 (4.6-6.2) 04/09/24 08:41 Hgb 14.1 g/dL (13.0-16.5) 04/09/24 08:41 Hct 43.6 % (40-54) 04/09/24 08:41 Plt Count 229 K/mm3 (150-450) 04/09/24 08:41 CHEMISTRY Potassium 4.2 mmol/L (3.5-5.1) 04/09/24 08:41 Sodium 138 mmol/L (136-145) 04/09/24 08:41 Magnesium 2.1 mg/dL (1.6-2.6) 04/09/24 08:41 BUN 15 mg/dL (7-18) 04/09/24 08:41 Creatinine 1.23 mg/dL (0.70-1.30) 04/09/24 08:41 Glucose 140 mg/dL (74-106) H 04/09/24 08:41 TSH 2.13 uIU/mL (0.358-3.74) 12/03/23 10:45 COAG Pre-Assessment Diagnosis/Proposed Procedure Planned Operative Procedure(s): ROBOTIC ASSISTED LEFT TOTAL KNEE ARTHROSCOPY Anesthesia History 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 When Was Last Pacemaker Check QUESTION #4 FULL TEXT: You/Your Family Experience fever (hyperthermia) with Anesthesia Last Oral Intake Last Oral intake: Last Oral Intake NPO since Meds taken in AM with sips of water? Meds patient instructed to take am of surgery PONV PONV - heavy equipment sales manager: PONV - heavy equipment sales manager Female No 04/04/24 09:37 HX of Motion Sickness No 04/04/24 09:37 HX of N/V After Surgery No 04/04/24 09:37 Non-Smoker Yes 04/04/24 09:37 Duration of Surgery greater Yes 04/04/24 09:37 than 60 minutes Number of Risk Factors 2 04/04/24 09:37 PONV Score Moderate Risk 04/04/24 09:37 Height & Weight Height & Weight: Anesthesia: Height & Weight Height 5 ft 8 in 04/14/24 09:31 Respiratory Assessment Respiratory Assessment - heavy equipment sales manager: Respiratory Tract Infection Hx - heavy equipment sales manager Hx Respiratory Tract Infection No 04/04/24 09:37 STOP Sleep Apnea STOP Sleep Apnea - heavy equipment sales manager: STOP Sleep Apnea - heavy equipment sales manager Hx Hypertension Yes: CONTROLLED WITH MED 04/04/24 09:37 Hx Sleep Apnea No 04/04/24 09:37 CPAP BIPAP Do you snore loudly (louder No 04/04/24 09:37 than talking or can be heard Do you often feel tired/ Yes 04/04/24 09:37 fatigued/ sleepy during daytime? Has anyone observed you stop No 04/04/24 09:37 breathing during sleep? STOP Results Positive 04/04/24 09:37 QUESTION #5 FULL TEXT : Do you snore loudly (louder than talking or can be heard through closed doors)? 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 Specify any problems Hx of Preganancy in last 3 N/A 04/04/24 09:37 Months Nurse Filling Out Transfusion DSCHRIBER 04/04/24 09:37 & Questions: Date: 04/04/24 04/04/24 09:37 Time: 09:39 04/04/24 09:37 Patient unable to answer at this time (ie. confused, unrespo /Reproduction History /Reproductive History - heavy equipment sales manager: /Reproductive Hx- heavy equipment sales manager Hx Now No 04/04/24 09:37 Gestational Age (in weeks): EDC: Hx Hx Para Hx Section SAB No 04/04/24 09:37 Active Medications Active Medications: Current Medications Generic Name Dose Route Start Last Admin Trade Name Freq PRN Reason Stop Dose Admin Acetaminophen 1,000 mg 04/28/24 11:15 Acetaminophen 500 Mg Tablet PO 04/28/24 11:16 X1 ONE Tranexamic Acid 2,000 mg/ 0 mg 04/28/24 11:15 Sodium Chloride 100 ml OPERA.SITE 04/28/24 11:16 X1 ONE Sodium Chloride 77.4 ml/ 0 ml 04/28/24 11:15 Ropivacaine 200 mg/ OPERA.SITE 04/28/24 11:16 Epinephrine HCl 0.6 mg/ X1 ONE Ketorolac Tromethamine 30 mg/ Morphine Sulfate 5 mg Dexamethasone Sodium Phosphate 10 mg 04/28/24 11:15 Dexamethasone 10 Mg/Ml Vial IV 04/28/24 11:16 X1 ONE Gabapentin 600 mg 04/28/24 11:15 Gabapentin 600 Mg Tablet PO 04/28/24 11:16 X1 ONE Lactated Ringer's 1,000 mls @ 999 mls/hr 04/28/24 12:15 IV 04/28/24 13:15 .Q1H1M STEFANO Lactated Ringer's 1,000 mls @ 125 mls/hr 04/28/24 13:15 IV 04/28/24 21:14 .Q8H STEFANO Cefazolin Sodium 2 gm/ N/A 20 mls @ 400 mls/hr 04/28/24 11:15 IV 04/28/24 11:17 PREOP ONE Magnesium Sulfate 1 gm/ 102 mls @ 408 mls/hr 04/28/24 11:15 Dextrose IV 04/28/24 11:29 X1 ONE Insulin Human Lispro 1 - 6 unit 04/28/24 11:15 Insulin Lispro 100 Unit/Ml Insuln.Pen SC 04/28/24 17:15 Q4H PRN PRN BG>/= 180, SEE PROTOCOL Protocol PFSH Medical History Preop exam for internal medicine Loss of hearing Wears glasses Wears dentures Alcohol use Arthritis Prostate disease High cholesterol Restless legs Injury of back Back pain Syncope History of hiatal hernia Gastric reflux Former smoker Shortness of breath on exertion Leg cramps History of pain when walking History of stress test History of Holter monitoring History of echocardiogram Hypertension Cardiology follow-up encounter 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 Home Medications ?Medication ?Instructions ?Recorded ?Last Taken ?Type aspirin 81 mg tablet,delayed 81 mg PO DAILY@0800 04/28/15 01/15/23 History release multivitamin 1 tab PO DAILY 08/17/21 Unknown History alfuzosin 10 mg tablet,extended 10 mg PO QHS 03/01/23 Unknown History release 24 hr ibuprofen 200 mg tablet (Advil) 200 mg PO Q6H PRN pain 03/01/23 Unknown History esomeprazole magnesium 40 mg 40 mg PO BID #180 caps 06/15/23 Unknown Rx capsule,delayed release acetaminophen 500 mg tablet 1,000 mg PO PRN PRN pain 07/02/23 Unknown History (Tylenol Extra Strength) insta flex joint support 1 tab PO DAILY 07/02/23 Unknown History omega-3 fatty acids 1,000 mg 1,000 mg PO BID 07/02/23 Unknown History capsule vitamin E mixed 400 unit tablet 400 unit PO DAILY 07/02/23 Unknown History metoprolol succinate 25 mg 25 mg PO QHS #90 tabs 12/24/23 Unknown Rx tablet,extended release 24 hr rosuvastatin 40 mg tablet 40 mg PO DAILY #90 tabs 03/14/24 Unknown Rx famotidine 40 mg tablet 40 mg PO QHS #90 tabs 03/18/24 Unknown Rx Allergy/AdvReac Type Severity Reaction Status Date / Time No Known Allergies Allergy Verified 04/14/24 09:33 Family History Other ALS (amyotrophic lateral sclerosis) Cancer Diabetes Heart disease Hypertension Parkinsons Surgical History Hx of colonoscopy History of esophagogastroduodenoscopy (EGD) Hx of foot surgery Hx of arthroscopic knee surgery History of cholecystectomy (~2011) History of left heart catheterization (01/15/23) History of coronary artery bypass surgery (02/01/23) Social History household members: spouse Smoking Status: Former smoker alcohol intake: current alcohol intake frequency: holidays/special occasions only substance use type: does not use caffeine: No Review of Systems (Anesthesia) ROS Narrative System reviewed and no additional complaints, except as documented.
[2024-04-28] MEDS: Gabapentin 600 MG Tablet PO (10:23)
[2024-04-28] MEDS: Acetaminophen 500 MG Tablet 1000 MG PO ×2 (10:23→21:41)
[2024-04-28] MEDS: Magnesium 1 GM over 15 mins IV (10:23)
[2024-04-28] MEDS: Lactated Ringers 1,000 ML 15 ML IV (10:25)
--- NOTE | 2024-04-28 11:15 | KNEE_PTH ---
PATIENT: BRANDEE HINSON LOC: MS3 U#:[id number] AGE/SX: 78/M ROOM: [facility] RE04/28/[address]: Dr. Hilton Wakefield MD : 1945 BED: 1 DIS: 04/29/2024 SPEC #: [id number] RECD: 04/28/24 13:40 STATUS: IVANA RERoxana #: [id number] FAHEEM: 04/28/24 11:[address]: Hilton Wakefield DEPT: SURGICAL PATHOLOGY RECD BY: Jayesh Tijerina ENTERED: 04/28/24 14:12 SP TYPE: TOTAL KNEE OTHR DR: Dr. Ayanna Sharp MD Tissues: Knee, NOS Procedures: Decalcification bone/plaque Surgery Specimen Level IV HEADER OPERATION: Total knee replacement robotic arm assist PRE-OP DIAGNOSIS: Osteoarthritis left knee TISSUE SUBMITTED: Bone and tissue left knee MICROSCOPIC DIAGNOSIS Bone and tissue of left knee, total knee resection: Severe degenerative joint disease. AM: 05/01/2024 MICROSCOPIC DESCRIPTION Slides are reviewed. GROSS DESCRIPTION Received is one container designated bone and soft tissue left knee. The specimen consists of multiple fragments of pabon-yellow bone measuring in aggregate 14.0 x 13.0 x 2.0 cm. Also in the specimen container are multiple fragments of yellow-white soft tissue measuring in aggregate 7.5 x 3.0 x 2.0cm. A number of bony fragments contain articular surfaces consistent with tibial plateau and femoral condyle and displaying prominent osteophyte formation, eburnation and bone erosion. Service Employee sections are submitted in two cassettes as follows: 1 - soft tissue, 2 - bone after decalcification. / AM. 04/28/2024 TC:5 [facility]: [id number], [id number]
[2024-04-28 11:16] LABS: Bedside Glucose 115 mg/dL (74-106)
[2024-04-28] MEDS: Cefazolin 2 GM in Syringe IV (11:22)
[2024-04-28] MEDS: dexAMETHasone 10 MG/ML Vial IV (11:35)
[2024-04-28] MEDS: JPS (Morphine 10mg/ml) OPERA.SITE (12:18)
[2024-04-28] MEDS: Lactated Ringers 1,000 ML 125 ML IV (12:30)
[2024-04-28] MEDS: TXA in NS 100ml (Placed in Wound) OPERA.SITE (12:38)
--- NOTE | 2024-04-28 12:40 | RAD_ITS ---
STUDY: X-RAY - LEFT KNEE REASON FOR EXAM: Male, 78 years old. Postop from replacement surgery TECHNIQUE: 3 view(s) of the knee. COMPARISON: None. FINDINGS: Patient is left status post left knee replacement surgery. Components demonstrate anatomic alignment. No plain film evidence of postoperative complication. Normal postoperative soft tissue swelling and subcutaneous emphysema. Diffuse atherosclerotic calcifications. RAD/Knee 1 or 2 Views IMPRESSION: Replacement left knee joint demonstrates anatomic alignment with no plain film evidence of postoperative complication Electronically Signed: Clyde Kay MD at 14:50 EDT ,
--- NOTE | 2024-04-28 12:41 | OP.PCM_ITS ---
Report of Operation Date of Procedure: 04/28/24 Pre-Operative Diagnosis: Left knee primary osteoarthritis Post-Operative Diagnosis: Left knee primary osteoarthritis Surgery/Procedure Performed:: Left knee minimally invasive robotic assisted total knee replacement Description of Surgical Findings:: Stable knee with good patella tracking Surgeon: Hilton Wakefield executive assistant: James Ruiz Type of Anesthesia: General Anesthesiologist: Jose Londono Special Medications: 2 g Ancef, 1 g TXA at incision, 1 g TXA closure, 10 mg Decadron, joint cocktail (5 mg Duramorph, 30 mL of 0.5% Ropivicaine, 1000 units of epinephrine, 30 mg of Toradol) Specimen's removed: Bony cuts Estimated Blood Loss (mL): 75 Fluids Replaced: 1500 L crystalloid Description of Procedure: Implants used: 1. Ambika size 5 triathlon cruciate retaining distal femoral press-fit component 2. [place] size 5 press-fit tritanium tibial baseplate 3. Ambika X3 10 mm CS polyethylene Brief history operative indications: 78-year-old M with history of left knee osteoarthritis with radiographic findings with loss of joint space, osteophyte formation and subchondral sclerosis. Failed conservative measures as mentioned in the H&P. Discussion of total knee arthroplasty as well as risk and benefits were discussed the patient including but not limited to blood loss, DVTs, PEs, neurovascular damage, general risk of anesthesia including loss of life, and stiffness or instability were discussed with patient. Patient demonstrated understanding and was able to sign informed consent. Procedure: On the date of procedure patient's left lower extremity was marked in the preoperative area. The patient was then taken back to the operating room where the patient was placed on the table in the supine position. All bony prominences were identified a well-padded. Anesthesia assumed control of the C-spine and airway and remained controlled throughout the remainder of the procedure. A tourniquet was placed on the left upper thigh and the leg was prepped in a sterile fashion. The surgeon then scrubbed at this time .Upon reentering the room left lower extremity was draped in a standard orthopedic fashion. A timeout was then called and everyone agreed upon the side, the site, the procedure to be performed, patient's identity and antibiotics given. Esmarch bandage was used to exsanguinate the extremity and the tourniquet was pl aced up to 250 mmHg with the knee in flexion. A midline skin incision was made and sharp dissection was taken down through skin subcutaneous tissue and fat. The standard medial parapatellar incision was made and the patella was subluxed laterally. An Appropriate deep MCL release was done and the fat pad was resected. Our attention was then directed to the patella. The patella was everted and exam ined and found to have appropriate cartilage. The knee was then flexed up in 2 femoral pins were placed inside the incision and 2 tibial pins were placed outside the incision in the medial tibia bicor tically. Once this was completed the 2 checkpoints in the femur and tibia were placed. Knee was then flexed up and the bony landmarks were registered. Once this was completed knee was taken through range of motion and manually stressed allowing us to a plan for an appropriate tibial cut. The robotic arm was brought into the field sterilely and checkpoint and saw were registered. Based on the patient's deformity the tibial cut was made in 3 degrees of varus. At this time the tensioner was then placed in the joint and ligament tension was checked at 90 degrees and full extension. Based on the patient's ligamentous tension appropriate adjustments were made to the operative plan and ligament releases were done. Once we were happy with our operative plan with balanced flexion and extension gaps our attention was directed to the femur. The robot was brought into the field sterilely and registered. Posterior condylar cuts, anterior chamfer cuts and anterior cuts were appropriately made for a size 5 femur. When these were completed the saws were switched out in the distal femoral and posterior chamfer cuts were made. Protecting the soft tissue throughout this time. A size 5 tibial base plate was selected. the knee was flexed to 90 degrees and the soft tissues and posterior osteophytes were removed from the joint. 40 cc of the periarticular injection was injected into the posterior medial corner of the joint. The appropriate trials were then placed on the femur and tibia. A trial polyethylene was trialed to ensure proper balancing and stability of the knee. The appropriate tibial internal rotation was then marked with a bovie. Our attention was then directed to the patella. Patellar tracking was checked and deemed appropriate. Once we were happy lug holes were drilled for the femur and trial components were removed. the tibia was subluxed and pinned into place and the keel was punched and drilled appropriately. Final components were verified and opened, and cement was mixed in a vacuum. [place] Simplex cement was used. The wound was copiously irrigated with normal saline. When the cement was ready the components were impacted into place starting with the tibia, femur. The trial poly component was placed and the knee was placed in full extension. All excess cement was removed in the process. Once the cement had cured the tracking, alignment and balance were verified and a size 10 mm CS polyethylene component was placed. Once the final components were placed a 3-minute dilute Betadine lavage was performed followed by an Irrisept lavage was performed and the wound was copiously irrigated with normal saline solution and the periarticular injection was given. The wound was closed in a layer moore fashion using #1 vicryl interrupted sutures for the arthrotomy, 2-0 interrupted Vicryl suture for the subcuticular layer and abbie for final skin closure. A sterile compressive dressing was then placed. The patient was then awakened from anesthesia, transferred to [facility] and transferred to the PACU for recovery. Post op plan DVT ppx: Xarelto 10 mg daily for 2 weeks followed by aspirin 81 mg twice daily for 2 weeks, thigh high compression stockings Follow up: in office in 2 weeks for wound check PT: to start POD #0 at hospital, outpatient PT should be arranged. My physician payroll assistant was a vital part of this case. He was important in appropriate retraction during the case, and protection of soft tissues during bony cuts. His intimate knowledge of the case and my steps aided in safe and expedient completion of the procedure as well as appropriate position of the leg during the case. He was also vital in assisting with closure under my direct supervision. Due to the complexity of this case robotic arm was used to assist in the surgery to improve accuracy and clinical outcomes. Complications No intraoperative complications Admit VTE Documentation VTE Present on Admission: No VTE Mechan Device Prophylaxis: SCD's and Thigh High EULOGIO Hose VTE Pharm Prophylaxis ordered?: Yes
--- NOTE | 2024-04-28 16:00 | PCM.POST.ANE ---
Anesthesia: Postop Eval I Current Vital Signs Temperature: 97.9 F Pulse Rate: 73 Blood Pressure: 126/73 Respiratory Rate: 18 Pulse Ox: 93 Oxygen Delivery Method: Room Air Assessment Airway patent: Yes Spontaneous unlabored respirations: Yes Mental status: Awake nausea: No Vomiting: No Anesthesia Complication: No Fluid Hydration Crystalloid volume administer (ml): 1,000 Total IV fluid infused: 1,000 Progress Note Anesthesia document: Postop Eval 1 completed: Yes
--- NOTE | 2024-04-28 16:53 | PCM.POSTANE2 ---
Anesthesia Postop Eval I Sum Anesthesia Postop Eval I Summary Anesthesia Postop Eval I Summary: Anesthesia Postop Eval I: Assessment Summary Airway patent Spontaneous unlabored respirations Mental status nausea Vomiting Anesthesia Postop Eval I: Fluid Summary Crystalloid volume administer (ml) Colloids volume administered ( ml) Blood Product volume administered (ml) Total IV fluid infused Anesthesia Postop Eval I: Summary Notes Anesthesia Complication Anesthesia Complication Comment: Post-operative progress note Anesthesia: Postop Eval II Evaluation Mental status: Awake and Calm Pain Level: 1 nausea: No Vomiting: No Complications Anesthesia Complication: No
[2024-04-28] MEDS: Tamsulosin HCl 0.4 MG Capsule PO (16:58)
--- NOTE | 2024-04-28 18:11 | PCM.CONS.GEN ---
Assessment & Plan Assessment/Plan (1) Left knee DJD: PLAN: Plan 1. Perioperative management of left knee primary osteoarthritis after left knee minimally invasive robotic assisted TKR: Patient had surgery today 04/28/2024. Spontaneously voided urine. Bladder and bowel care. Incentive spirometry and Pep. Pain control. DVT prophylaxis as per operating surgeon. 2. CAD status post 5 vessel CABG January 2023: EKG, 2D echo and stress test reviewed as mentioned in HPI. No acute chest pain or shortness of breath. Continue home cardiac medications. 3. GERD, Villasenor's esophagus, hiatus hernia status post ablation surgery: Continue PPI 4. Hypertension : Blood pressure is in normal range. Hold antihypertensive medication if SBP less than 120 mmHg. 5. Prostate cancer, low-grade: No any surgical procedures mentioned in history. Follow with PCP and urologist does not. Probably observation 6 6. Dyslipidemia: Home medication continued HPI Consult Data Date of Consult: 04/28/24 HPI Narrative Reason for Consultation: Perioperative management for left knee TKR HPI Narrative: BRANDEE HINSON, is a 78 M who was admitted after left knee TKR. Patient denies history of chest pain shortness of breath. No palpitation. History of CAD status post 5 vessel CABG in January 2023. Most recent twelve-lead EKG shows normal sinus rhythm 63 bpm, QTc 423 ms. 2D echo in January 2023 shows LV function EF 60% with stage I diastolic dysfunction. Patient had exercise nuclear stress test in September 2021 and was reported normal. Patient is having DNR. No acute issues. Had a spontaneous voiding urine 300 mL in urine output after surgery Patient also has history of Villasenor's esophagus and had ablation in [facility]. Patient also had bilateral knee arthroscopic surgery when he was 63 years old. [facility] Medical History Preop exam for internal medicine Loss of hearing Wears glasses Wears dentures Alcohol use Arthritis Prostate disease High cholesterol Restless legs Injury of back Back pain Syncope History of hiatal hernia Gastric reflux Former smoker Shortness of breath on exertion Leg cramps History of pain when walking History of stress test History of Holter monitoring History of echocardiogram Hypertension Cardiology follow-up encounter Atherosclerotic heart disease of [place] coronary artery without angina pectoris Home Medications ?Medication ?Instructions ?Recorded ?Last Taken ?Type aspirin 81 mg tablet,delayed 81 mg PO DAILY@0800 04/28/15 04/22/24 History release multivitamin 1 tab PO DAILY 08/17/21 04/22/24 History alfuzosin 10 mg tablet,extended 10 mg PO QHS 03/01/23 04/27/24 History release 24 hr ibuprofen 200 mg tablet (Advil) 200 mg PO Q6H PRN pain 03/01/23 Unknown History esomeprazole magnesium 40 mg 40 mg PO BID #180 caps 06/15/23 04/28/24 Rx capsule,delayed release acetaminophen 500 mg tablet 1,000 mg PO PRN PRN pain 07/02/23 Unknown History (Tylenol Extra Strength) insta flex joint support 1 tab PO DAILY 07/02/23 04/22/24 History omega-3 fatty acids 1,000 mg 1,000 mg PO BID 07/02/23 04/22/24 History capsule vitamin E mixed 400 unit tablet 400 unit PO DAILY 07/02/23 04/22/24 History metoprolol succinate 25 mg 25 mg PO QHS #90 tabs 12/24/23 04/27/24 22:00 Rx tablet,extended release 24 hr rosuvastatin 40 mg tablet 40 mg PO DAILY #90 tabs 03/14/24 04/27/24 Rx famotidine 40 mg tablet 40 mg PO QHS #90 tabs 03/18/24 04/27/24 22:00 Rx Allergy/AdvReac Type Severity Reaction Status Date / Time No Known Allergies Allergy Verified 04/28/24 10:17 Family History Other ALS (amyotrophic lateral sclerosis) Cancer Diabetes Heart disease Hypertension Parkinsons Surgical History Hx of colonoscopy History of esophagogastroduodenoscopy (EGD) Hx of foot surgery Hx of arthroscopic knee surgery History of cholecystectomy (~2011) History of left heart catheterization (01/15/23) History of coronary artery bypass surgery (02/01/23) Social History household members: spouse Smoking Status: Former smoker alcohol intake: current alcohol intake frequency: holidays/special occasions only substance use type: does not use caffeine: No ROS ROS Narrative Constitutional: Reports fatigue and weakness. No fever. HEENT: Reports systems reviewed and no addt'l complaints, except as documented Respiratory/Chest: No acute shortness of breath or respiratory distress or wheezing. CVS: No chest pain or anginal-like symptoms. Rest as described in HPI Gastrointestinal: Denies coffee ground emesis, hematemesis or vomiting Genitourinary: Denies burning urination or new urinary tract symptoms Musculoskeletal: Left TKR denies acute joint pain or limited range of motion. No acute injury Neurologic: Denies seizure-like symptoms. skin: No ulcer. No rash Endocrinology: Reports systems reviewed and no addt'l complaints, except as documented Hematologic/Lymphatic: Reports systems reviewed and no addt'l complaints, except as documented Rest 14 ROS are negative except as mentioned in HPI Physical Exam Narrative General: Alert, Oriented x3, Cooperative. BMI 28.9 kg/m?, overweight HEENT: Atraumatic, PERRLA, EOMI, Normocephalic Oral: No Gingival or Mucosal Lesions/ Ulcerations Neck: Supple, No JVD, Negative Carotid Bruits Chest wall/Lungs: Air entry diminished in bilateral lung bases. No crepitation/rhonchi Cardiovascular: CABG scar. Regular rate, Regular Rhythm, Normal S1, Normal S2, systolic murmur right second ICS, LLSB and cardiac. Abdomen: Bowel Sounds Present, Soft, Non Tender, Non-Distended : No dysuria. No renal angle tenderness. No suprapubic tenderness. Extremities: No edema, Capillary Refill Less than 3 Seconds Skin: Left knee surgical dressing is dry. No acute bleeding or hematoma. Musculoskeletal: No Tenderness to Palpation of Joints or Extremities Neurological: Cranial nerves II-XII grossly intact, DTR 2+/4. No acute focal neurological deficit. Psych/Mental Status: Normal Affect, Appropriate. Lab / Micro Data 04/09/24 08:41 04/09/24 08:41 Labs: Laboratory Results - last 24 hr 04/28/24 10:04: POC Glucose 115 H Imaging Radiology Impression Knee X-Ray 04/28/24 12:40 IMPRESSION: Replacement left knee joint demonstrates anatomic alignment with no plain film evidence of postoperative complication Electronically Signed: Clyde Kay MD at 14:50 EDT Reading Location ID and State: [facility] / [place] , Service support , Charges/Coding Visit Charges Office Visits / Consults: [id number] OV L3 New 30min
[2024-04-28] MEDS: Cefazolin 1 GM/50 ML BAG IV (19:28)
[2024-04-28] MEDS: Omega-3 Acid Ethyl Esters 1 GM Capsule PO (21:40)
[2024-04-28] MEDS: Senna/Docusate Sodium 1 Tablet 2 TABLET PO (21:40)
[2024-04-28] MEDS: Pantoprazole Sodium 40 MG Tablet PO (21:40)
[2024-04-28] MEDS: Metoprolol(XL)Succ 25 MG Tablet PO (21:42)
[2024-04-28] MEDS: Famotidine 20 MG Tablet 40 MG PO (21:42)
[2024-04-29 01:41] VITALS: BP 117/64; PULSE 72; RESP 16; TEMP 36.9; O2SAT 94
[2024-04-29] MEDS: Cefazolin 1 GM/50 ML BAG IV (03:45)
[2024-04-29 05:11] VITALS: BP 124/63; PULSE 68; RESP 16; TEMP 36.9; O2SAT 95
[2024-04-29] MEDS: Rivaroxaban 10 MG Tablet PO (05:23)
[2024-04-29] MEDS: Acetaminophen 500 MG Tablet 1000 MG PO (05:23)
[2024-04-29 06:46] LABS: Hematocrit 35.7 % (40-54); Mean Corp Hgb Conc 33.6 g/dL (32-36); Mean Corpuscular Hgb 30.2 pg (27.0-32.0); Mean Corpuscular Volume 89.7 fL (80-94); Mean Platelet Vol. 10.4 fl (6.2-12.0); Platelet Count 196 K/mm3 (150-450); RBC Distribution Width CV 13.1 % (11.6-14.6); RBC Distribution Width SD 42.6 fl (35.1-43.9); Red Blood Count 3.98 M/mm3 (4.6-6.2)
[2024-04-29 07:51] VITALS: BP 127/75; PULSE 70; RESP 16; TEMP 37.3; O2SAT 95
[2024-04-29] MEDS: Aspirin E.C. 81 MG Tablet PO (08:12)
[2024-04-29] MEDS: Multivitamins,Therapeutic Tablet 1 TABLET PO (08:12)
[2024-04-29] MEDS: Omega-3 Acid Ethyl Esters 1 GM Capsule PO (08:15)
[2024-04-29] MEDS: Atorvastatin Calcium 80 MG Tablet PO (08:15)
[2024-04-29] MEDS: Senna/Docusate Sodium 1 Tablet 2 TABLET PO (08:16)
[2024-04-29] MEDS: Pantoprazole Sodium 40 MG Tablet PO (08:16)
--- NOTE | 2024-04-29 09:03 | CASEMGMT ---
Social Work- Pt confirms he has completed a living will and health care POA naming , Dai .? Pt notified that documents are not on file at [facility] and requested they be brought in for scanning into the EMR.? SHELLI Pimentel
--- NOTE | 2024-04-29 09:41 | PN.ORTHO_ITS ---
Subjective Subjective The patient was sitting in bed upon examination. Patient denies any chest pain, shortness of breath, dizziness, lightheadedness, nausea or vomiting, or calf pain. Pain is controlled on medications. No adverse overnight events. Patient overall is doing well this morning. He has been able to urinate on his own. He does have underlying benign prostatic hyperplasia. He is currently on Xarelto postoperatively due to prostate cancer. Patient wishes to go home when ready. I did have to call down to lab/chemistry as I am waiting on BMP. Objective Data Objective Data Vital Signs: Vital Signs Temp Pulse Resp BP Pulse Ox O2 Del Method O2 Flow Rate 99.2 F H 70 16 127/75 H 95 Room Air 4 04/29/24 07:51 04/29/24 07:51 04/29/24 07:51 04/29/24 07:51 04/29/24 07:51 04/29/24 07:51 04/28/24 14:49 Oxygen Flow Rate (L/min) 4 Oxygen Delivery Method Room Air Weight: 86.1 kg Body Mass Index (BMI) 28.8 Intake & Output: Intake and Output for Last 24 Hours 04/27/24 04/28/24 04/29/24 23:59 23:59 23:59 Intake Total 1980.33 / 1980.33 50 / 50 Output Total 300 / 500 500 / 500 Balance 1680.33 / 1480.33 -450 / -450 Lab / Micro Data 04/29/24 05:59 04/09/24 08:41 Labs: Laboratory Results - last 24 hr 04/28/24 10:04: POC Glucose 115 H 04/29/24 05:59: WBC 12.0 H, RBC 3.98 L, Hgb 12.0 L, Hct 35.7 L, MCV 89.7, MCH 30.2, MCHC 33.6, RDW Std Deviation 42.6, RDW Coeff of Kiersten 13.1, Plt Count 196, MPV 10.4 Micro: Microbiology 04/09/24 08:41 Swab (Method) Nasal Screen MRSA/MSSA - Final Radiography Diagnostic Testing: Radiology Impression Knee X-Ray 04/28/24 12:40 IMPRESSION: Replacement left knee joint demonstrates anatomic alignment with no plain film evidence of postoperative complication Electronically Signed: Clyde Kay MD at 14:50 EDT , Physical Exam Narrative Vital signs stable and afebrile. SCDs and EULOGIO hose are in place bilaterally Patient is able to plantarflex and dorsiflex actively. Sensation is intact to light touch to saphenous, sural, superficial and deep peroneal, and tibial distribution. Main Mepilex dressing clean dry and intact. Mild drainage from the distal pin site dressing Negative Homans bilaterally, negative signs and symptoms of DVT. Const alert, oriented x3 and no apparent distress Assessment & Plan Assessment/Plan (1) Status post total left knee replacement: PLAN: 1. S/P robotic assisted left total knee arthroplasty POD #1 2. Continue Pain Medications: Tylenol and oxycodone. Patient states cardiology stopped his ibuprofen in the past. 3. DVT Prophylaxis: Patient will be on Xarelto 10 mg daily for 2 weeks postoperatively due to prostate cancer. He will then begin aspirin 81 mg twice daily for an additional 2-week once finished with Xarelto. Patient voiced understanding. 4. PT/OT: Weightbearing as tolerated with walker 5. H & H: 12.0/35.7, asymptomatic. 6. Reactive leukocytosis: 12.0, Afebrile. Patient did receive Decadron intraoperatively. No clinical signs of infection. 7. Encouraged Incentive Spirometry 8. Patient is aware of postoperative constipation that can occur from 1-3 days postoperatively. Will continue with senna 2 tablets twice daily until first bowel movement. Patient was advised if not having a bowel movement after day 3 she is to contact orthopedics so appropriate change can be made. Patient voiced understanding. 9. Continue postoperative medical treatment per medicine 10. Disposition: Plan will be for discharge home today as long as patient remains medically stable, tolerates therapy, and pain is adequately controlled. He would like his medications E scribed to [facility] in [facility]. He has outpatient physical therapy established. He will follow-up per postoperative instructions. Upon discharge he will contact our office with any concerns or questions. I have reviewed the [place] Automated Rx Reporting System (OARRS) report for this patient for refill pattern and other prescriber involvement as part of the appropriate surveillance for the provision of acute and chronic controlled medications. The report was requested and reviewed on the date of this entry and was considered in the prescribing process. This dictation was created using voice recognition software. Phonetic and/or grammatical errors may exist.
--- NOTE | 2024-04-29 09:45 | PCM.DC ---
Discharge Instructions Diet Discharge Diet: No restrictions Activity Discharge Activity: May Not Drive (Okay to drive when you can walk 100 feet with the use of a cane and off all narcotics) May shower in (days): 1 (Please turn dressing away from water. Okay to get wet as long as dressing is intact to skin.) Ice area for (Minutes): 20 (Every 1-2 hours while awake. Please place barrier between the skin and ice pack.) Weight Bearing Status: Weight bearing as tolerated Keep extremity elevated above heart level: Operative Extremity Dressing / Incision Call your doctor if your incision/area has: Continuous Slow Oozing, Sudden Increased Bleeding, Increased Pain/ Swelling, Increased Redness and Foul Smelling Discharge Call your doctor if you observe: Fever of 101 or Higher, Coldness, Increased Pain, Numbness or Tingling, Change in Color, Shortness of breath, Chest pain, Calf discomfort and Uncontrolled pain Remove Dressing in: 4 days (Okay to remove dressing on May 03, 2024) Additional Dressing/Incision Instructions:: Follow [facility] Post-op Instructions. Once postoperative dressing has been removed only use gentle soap and water over the incision. Do not use any ointments, Neosporin, salves, alcohol pads over the incision for 6 weeks postoperatively. Do not submerge underwater for 6 weeks postoperatively. Continue with EULOGIO hose/elastic stockings for 2 weeks postoperatively. May remove at nighttime but needs to be placed back on the leg during the day. Do NOT use alcohol with narcotic pain medication. Do NOT make important decisions while taking narcotic medication. If you have problems with taking your medication (rash, itching, nausea, etc.) call the office at once. Follow Up Care Test Results: Test results from this visit will be discussed in further detail at your follow-up appointment, if applicable. Discharge Plan Admission Admit Date/Time: 04/28/24 12:39 Attending Provider: Hilton Wakefield Primary Care Provider: Ayanna Sharp Consulting Providers: Migue Chen; Lani Conley; Anthony Monet; Tena Krishnamurthy Discharge Orders/Prescriptions Prescriptions: New acetaminophen 500 mg Tablet 1,000 mg PO Q8 14 Days Qty: 0 0RF Rx Instructions: Do not take more than 3000 mg Tylenol in a 24-hour period. oxycodone 5 mg Tablet 5 - 10 mg PO Q4H PRN PRN (Reason: Pain Score 4-10) 7 Days Qty: 42 0RF sennosides-docusate sodium [Stimulant Laxative Plus] 8.6-50 mg Tablet 2 tab PO BID 3 Days Qty: 12 0RF Rx Instructions: Take until first bowel movement, then as needed Xarelto 10 mg Tablet 10 mg PO DAILY@0600 13 Days Qty: 13 0RF Rx Instructions: Take for 2 weeks postoperatively for DVT prophylaxis due to prostate cancer Continued multivitamin Tablet 1 tab PO DAILY insta flex joint support 1 tab PO DAILY alfuzosin 10 mg tablet extended release 24 hr 10 mg PO QHS Rx Instructions: administer after the same meal each day vitamin E mixed 400 unit tablet 400 unit PO DAILY omega-3 fatty acids 1,000 mg capsule 1,000 mg PO BID metoprolol succinate 25 mg tablet extended release 24 hr 25 mg PO QHS Qty: 90 3RF aspirin 81 MG tablet 81 mg PO DAILY@0800 esomeprazole magnesium 40 mg capsule,delayed release(DR/EC) 40 mg PO BID Qty: 180 3RF rosuvastatin 40 mg tablet 40 mg PO DAILY Qty: 90 3RF famotidine 40 mg tablet 40 mg PO QHS Qty: 90 3RF Discontinued ibuprofen [Advil] 200 mg tablet 200 mg PO Q6H PRN (Reason: pain) acetaminophen [Tylenol Extra Strength] 500 mg tablet 1,000 mg PO PRN PRN (Reason: pain) Referrals / Follow Up: Physical,Therapy [Other] - 05/01/24 9:30 am Ayanna Sharp MD [Primary Care Provider] - Lakesha Alejo PA [Med Staff - Adv Practice Prof] - 05/12/24 10:00 am Disposition Disposition (needs filled in before D/C Order can be placed): Home, Self Care
[2024-04-29 10:00] LABS: Anion Gap 7 (5-15); BUN 19 mg/dL (7-18); Calcium,Total 8.5 mg/dL (8.5-10.1); Chloride 105 mmol/L (98-107); Creatinine, Serum 1.27 mg/dL (0.70-1.30); EST Glomerular Filtration Rate 58 mL/min (>60); Est Glom Filt Rate - Afr Amer 70 mL/min (>60); Estimated Creatinine Clearance 51.18 ml/min; Glucose 134 mg/dL (74-106); Potassium 4.4 mmol/L (3.5-5.1); Sodium Level 137 mmol/L (136-145)
--- NOTE | 2024-04-29 10:07 | CASEMGMT ---
Addendum entered by Tereza Bond 04/29/24 10:42: Received tc back from [facility], cost of medication is $241.15. RN CM into pt room, pt states this is affordable to him as he only has to pay it one time. Pt denies any further needs. Original Note: TC to [facility] to check cost of Xarelto, left message with pharmacy requesting a returned call with this information.
[2024-04-29] MEDS: oxyCODONE 5 MG Tablet PO (10:15)
[2024-04-29] MEDS: FLU VACCINE **HIGH DOSE** TV 24-25 180 MCG/0.5 ML SYRINGE IM (10:16)
--- NOTE | 2024-04-29 10:36 | PN_ITS ---
Subjective Subjective Patient seen and examined. His daughter was by his bedside. He complained of some mild pain in his knee due to him working with therapy today. Review of systems was otherwise negative. He has a mild fever of 99.2F today but is otherwise stable. Objective Data Objective Data Vital Signs: Vital Signs Temp Pulse Resp BP Pulse Ox O2 Del Method O2 Flow Rate 99.2 F H 70 16 127/75 H 95 Room Air 4 04/29/24 07:51 04/29/24 07:51 04/29/24 07:51 04/29/24 07:51 04/29/24 07:51 04/29/24 07:51 04/28/24 14:49 Oxygen Flow Rate (L/min) 4 Oxygen Delivery Method Room Air Weight: 189 lb 13.088 oz Body Mass Index (BMI) 28.8 Intake & Output: Intake and Output for Last 24 Hours 04/27/24 04/28/24 04/29/24 23:59 23:59 23:59 Intake Total 1980.33 / 1980.33 50 / 50 Output Total 300 / 500 500 / 500 Balance 1680.33 / 1480.33 -450 / -450 Lab / Micro Data 04/29/24 05:59 04/29/24 05:59 Labs: Laboratory Results - last 24 hr 04/28/24 10:04: POC Glucose 115 H 04/29/24 05:59: WBC 12.0 H, RBC 3.98 L, Hgb 12.0 L, Hct 35.7 L, MCV 89.7, MCH 30.2, MCHC 33.6, RDW Std Deviation 42.6, RDW Coeff of Kiersten 13.1, Plt Count 196, MPV 10.4, Sodium 137, Potassium 4.4, Chloride 105, Carbon Dioxide 25.0, Anion Gap 7, BUN 19 H, Creatinine 1.27, Estim Creat Clear Calc 51.18, Est GFR (MDRD) Af Amer 70, Est GFR (MDRD) Non-Af 58 L, BUN/Creatinine Ratio 15.0, Glucose 134 H , Calcium 8.5 Micro: Microbiology 04/09/24 08:41 Swab (Method) Nasal Screen MRSA/MSSA - Final Radiography Diagnostic Testing: Radiology Impression Knee X-Ray 04/28/24 12:40 IMPRESSION: Replacement left knee joint demonstrates anatomic alignment with no plain film evidence of postoperative complication Electronically Signed: Clyde Kay MD at 14:50 EDT , Physical Exam Const alert, oriented x3, no apparent distress and well nourished General Appearance: cooperative and well developed HEENT normocephalic, head/scalp atraumatic and moist oral mucous membranes Eyes PERRL and EOMs intact bilaterally Neck no lymphadenopathy and supple Lymph Lymphatic: no lymphadenopathy noted Resp normal respiratory effort, normal air movement and clear to auscultation bilaterally Cardio regular rate, regular rhythm, S1 normal heart sound, S2 normal heart sound and no murmurs GI normal to inspection, nondistended, normoactive bowel sounds, soft to palpation, non-tender and non-distended Extremity normal capillary refill Extremity Narrative: intact dressing over left knee Skin Skin Narrative: intact dressing over surgical site Neuro CN's II-XII intact bilaterally, no focal motor deficits, no sensory deficits noted and deep tendon reflexes 2+ bilaterally Motor Exam: strength 5/5 throughout and general weakness Psych thought process normal and cooperative Appearance: appropriate Assessment & Plan Assessment/Plan (1) Status post total left knee replacement: (2) Left knee DJD: PLAN: Plan #Left knee ostoearthritis * s/p left minimally invasive robotic assisted total knee replacement. * today is POD 1 * management as per orthopedic surgery * incentive spirometry * * #CAD s/p CABG x 5 * stable. * on metoprolol and aspirin as well as high intensity statin. #GERD and Villasenor's esophagus: on PPI #Hiatal hernia s/p ablation: on PPI #HYpertension: on metoprolol. IV hydralazine prn. #History of prostate cancer: stable. Follow up with PCP and urologist on discharge. On alfuzosin. #Hyperlipidemia: continue statin DVT prophylaxis: as per primary team orthopedics; on xarelto. Disposition: patient ok for dc from hospitalist standpoint. Charges/Coding Visit Charges Inpatient E&M: 03696 Subs Hosp L2
--- NOTE | 2024-04-29 11:43 | PHA.DC.MC.R ---
Pharmacy [facility] Pharmacy Service has performed discharge medication reconciliation and counseling for this patient. 1. ACETAMINOPHEN 1000MG PO Q8 2. OXYCODONE 5-10MG PO Q4H PRN PAIN 3. SENNA/DOCUSATE 2T PO BID UNTIL FIRST BOWEL MOVEMENT, THEN PRN CONSTIPATION 4. RIVAROXABAN 10MG PO DAILY X 2 WEEKS The patient's discharge medication list was reviewed for discrepancies and discrepancies were resolved. The patient was counseled on the following discharge medications and changes in medications for homegoing were reviewed. The Reason for Use, instructions for use, and potential side effects were reviewed for all new medications. The patient's questions regarding all of their medications were answered. The patient was able to verbally demonstrate an understanding of their discharge medications. Medications at Discharge Home Medications aspirin 81 mg tablet,delayed release 81 mg PO DAILY@0800 04/28/15 multivitamin 1 tab PO DAILY 08/17/21 alfuzosin 10 mg tablet,extended release 24 hr 10 mg PO QHS 03/01/23 esomeprazole magnesium 40 mg capsule,delayed release 40 mg PO BID #180 caps 06/15/23 insta flex joint support 1 tab PO DAILY 07/02/23 omega-3 fatty acids 1,000 mg capsule 1,000 mg PO BID 07/02/23 vitamin E mixed 400 unit tablet 400 unit PO DAILY 07/02/23 metoprolol succinate 25 mg tablet,extended release 24 hr 25 mg PO QHS #90 tabs 12/24/23 rosuvastatin 40 mg tablet 40 mg PO DAILY #90 tabs 03/14/24 famotidine 40 mg tablet 40 mg PO QHS #90 tabs 03/18/24 acetaminophen 500 mg tablet 1,000 mg (2 x 500 mg) PO Q8 14 days #0 tabs 04/29/24 oxycodone 5 mg tablet 5 - 10 mg (1 - 2 x 5 mg) PO Q4H PRN PRN Pain Score 4-10 7 days #42 tabs 04/29/24 rivaroxaban 10 mg tablet (Xarelto) 10 mg PO DAILY@0600 13 days #13 tabs 04/29/24 sennosides 8.6 mg-docusate sodium 50 mg tablet (Stimulant Laxative Plus) 2 tab PO BID 3 days #12 tabs 04/29/24
--- NOTE | 2024-04-29 12:16 | CASEMGMT ---
OSCAR SURESH Assessment: Face to Face with pt for initial transition planning/care coordination assessment. RN KERWIN introduced self and role at [facility], pt voices understanding and consents to assessment. Pt is A&O x4 and answers all questions appropriately at this time. Pt sitting up in chair, daughter sitting at bedside. Pt agreeable to answering questions with daughter present. Care providers, pharmacy, and demographics verified/updated. Strata: 2 Admitting Dx: R TKR PCP: [facility] Specialists: Chaitanya, Bar Steward; Neelima, Urologist; Twyla, Othropedic. Preferred Pharmacy: [facility] Insurance: MCR, MMO Prescription Benefit: yes LNOK: , daughter Living Arrangements: Pt lives with in a 2 story home with 2 steps to enter. ADLs: pt reports I with ADLs and IADLs. Transportation: Pt drives self and denies concerns with transportation. DME: [employer] HHC/SNF: Denies Hx of. Pt states no concerns with going home at time of dc. Pt states no further concerns/needs. CM to follow. Advised pt to ask CM if any further question/concerns/needs arise, voices understanding. Pt Goal: Home Plan: Home with family support. OP PT scheduled 05/01/24. Tamika MOORE CM
== END 2024-04-29 11:35 | disposition home or self-care (01) ==
LOC: MS3 04-29 02:08 → SDC 04-29 02:09 → MS3 04-29 02:09
PROVIDERS: Anesthesiology; Admitting Provider Specialist; PCP Internal Medicine; Referring Provider Specialist; Visit Provider Specialist
PROC: 0SRD0JZ Replacement of Left Knee Joint with Synthetic Substitute, Open Approach (ICD-10-PCS; CPT 27447; principal; 2024-04-28 10:45)
DX: M17.0 Bilateral primary osteoarthritis of knee (principal); C61 Malignant neoplasm of prostate; K44.9 Diaphragmatic hernia without obstruction or gangrene; Z87.891 Personal history of nicotine dependence; E78.00 Pure hypercholesterolemia, unspecified; I25.10 Atherosclerotic heart disease of native coronary artery without angina pectoris; Z79.01 Long term (current) use of anticoagulants; I10 Essential (primary) hypertension; M21.161 Varus deformity, not elsewhere classified, right knee; M21.162 Varus deformity, not elsewhere classified, left knee; Z23 Encounter for immunization; K21.9 Gastro-esophageal reflux disease without esophagitis; Z79.899 Other long term (current) drug therapy; Z79.82 Long term (current) use of aspirin; Z95.1 Presence of aortocoronary bypass graft; Z66 Do not resuscitate
CPT/HCPCS: 27447; S2900; 01402; 36415; 73560; 80048; 82040; 82962; 83735; 85025; 85027; 87081; 88305; 88311; 90662; 93005; 94668; 96365; 96366; 97162; 97166; 99221; 99252; C1776; G0008; J7120; G0378; G0463; J2405; J3475

== ENCOUNTER 2024-04-30 07:52 | Emergency (ER) | payer MEDICARE, OTHER, SELFPAY ==
[2023-06-25 08:23] VITALS: BMI 27.8
[2024-04-30 07:53] VITALS: BP 130/71; PULSE 75; RESP 16; TEMP 37.2; O2SAT 97; BMI 31.0
--- NOTE | 2024-04-30 08:15 | EKG12_ITS ---
Test Reason : syncope Blood Pressure : / mmHG Vent. Rate : 073 BPM Atrial Rate : 073 BPM P-R Int : 204 ms QRS Dur : 100 ms QT Int : 384 ms P-R-T Axes : 012 -18 025 degrees QTc Int : 423 ms Normal sinus rhythm with sinus arrhythmia Incomplete right bundle branch block Minimal voltage criteria for LVH, may be normal variant ( R in aVL ) Borderline ECG Confirmed by Keon Sanderson ([id number]), subeditor KELSEY JOHNSNO ([id number]) on 05/01/2024 6:39:29 AM Referred By: Confirmed By:Keon Sanderson
--- NOTE | 2024-04-30 08:15 | CT_ITS ---
HISTORY: Knee surgery yesterday, evaluate for pulmonary embolism. TECHNIQUE: CT angiogram of the chest was performed after the intravenous administration of 100 mL Isovue-370. Post-processing of the angiographic images was performed with multiplanar reformation and 3D reconstruction. Individualized dose optimization techniques were used for this CT. 1270 images. COMPARISON: 01/26/2023. FINDINGS: CENTRAL AIRWAYS: Patent. LUNGS: Mild groundglass and irregular nodular alveolar opacities in the right upper lobe measuring up to 10 mm. Very mild groundglass and nodular alveolar opacities in the right lower lobe. Mild left lower lobe atelectasis surrounding the moderate hiatal hernia. PLEURA: No pneumothorax or significant pleural effusion. HEART/PERICARDIUM: Heart within normal limits in size. Midline sternotomy with coronary artery bypass graft. No pericardial effusion. PULMONARY ARTERIES: No filling defect. AORTA/VESSELS: No thoracic aortic aneurysm or dissection flap. Atherosclerosis present. MEDIASTINUM/DASHA: No pathologically enlarged lymph nodes. Mild distal esophageal wall thickening. OSSEOUS STRUCTURES: Mild degenerative change and thoracic dextroscoliosis. UPPER ABDOMEN: Hepatic cysts measuring up to 3.[address]/CTA Chest W/WO Contrast IMPRESSION: Mild groundglass and irregular nodular opacities in the right upper and lower lobes measuring up to 10 mm, likely infectious or inflammatory. Recommend close short-term interval follow-up to resolution to exclude other etiologies. Moderate hiatal hernia. Probable esophagitis. No evidence of pulmonary embolism. Electronically Signed: Radha Paez MD at 10:11 EDT ,
[2024-04-30 08:22] LABS: Absolute Neutrophil Count 5.2 X10^3/uL (2.0-7.7); Basophil# 0.06 X10^3/uL; Basophil% 0.7 % (0-1); Eosinophil# 0.06 X10^3/uL; Eosinophils% 0.7 % (0-5); Hematocrit 38.3 % (40-54); Hemoglobin 12.7 g/dL (13.0-16.5); Lymphocyte % 24.7 % (19-41); Mean Corp Hgb Conc 33.2 g/dL (32-36); Mean Corpuscular Hgb 29.9 pg (27.0-32.0); Mean Corpuscular Volume 90.1 fL (80-94); Mean Platelet Vol. 10.5 fl (6.2-12.0); Monocyte# 0.77 X10^3/uL; Monocyte% 9.5 % (0-10); NRBC Flagged by Analyzer 0 % (0-5); Neutrophil # 5.18 X10^3/uL (2.7-7.7); Neutrophil % 63.9 % (47-70); Platelet Count 217 K/mm3 (150-450); RBC Distribution Width CV 13.5 % (11.6-14.6); RBC Distribution Width SD 44.2 fl (35.1-43.9); Red Blood Count 4.25 M/mm3 (4.6-6.2); White Blood Count 8.1 K/mm3 (4.4-11.0)
--- NOTE | 2024-04-30 08:29 | EX.ED.DYSGE1 ---
HPI History of Present Illness Chief Complaint: Syncope Informant: patient, family and EMS Narrative Narrative: 78-year-old male history of coronary artery disease (CABG) who is status post total left knee replacement by Dr. Wakefeild on Sunday presenting with syncope. Patient states that he was discharged from the hospital yesterday. This morning he went into the bathroom to brush his teeth and to take a shower. He was sitting on the seat of his walker and he states the next thing he remembers he was being awoken by EMS. He notes that he was diaphoretic. He denies any preceding chest pain or shortness of breath or palpitations. He states he has had a prior syncope after his last surgery. He notes that he has not had a bowel movement since surgery but is having flatus. He is taking stool softener as well as some oxycodone. He is also on Xarelto. Other than postoperative pain he is not experiencing any new symptoms at the time of evaluation. [facility] Medical History FHx: total knee replacement Preop exam for internal medicine Loss of hearing Wears glasses Wears dentures Alcohol use Arthritis Prostate disease High cholesterol Restless legs Injury of back Back pain Syncope History of hiatal hernia Gastric reflux Former smoker Shortness of breath on exertion Leg cramps History of pain when walking History of stress test History of Holter monitoring History of echocardiogram Hypertension Cardiology follow-up encounter Atherosclerotic heart disease of craig coronary artery without angina pectoris Home Medications ?Medication ?Instructions ?Recorded ?Last Taken ?Type aspirin 81 mg tablet,delayed 81 mg PO DAILY@0800 04/28/15 04/22/24 History release multivitamin 1 tab PO DAILY 08/17/21 04/22/24 History alfuzosin 10 mg tablet,extended 10 mg PO QHS 03/01/23 04/27/24 History release 24 hr esomeprazole magnesium 40 mg 40 mg PO BID #180 caps 06/15/23 04/28/24 Rx capsule,delayed release insta flex joint support 1 tab PO DAILY 07/02/23 04/22/24 History omega-3 fatty acids 1,000 mg 1,000 mg PO BID 07/02/23 04/22/24 History capsule vitamin E mixed 400 unit tablet 400 unit PO DAILY 07/02/23 04/22/24 History metoprolol succinate 25 mg 25 mg PO QHS #90 tabs 12/24/23 04/27/24 22:00 Rx tablet,extended release 24 hr rosuvastatin 40 mg tablet 40 mg PO DAILY #90 tabs 03/14/24 04/27/24 Rx famotidine 40 mg tablet 40 mg PO QHS #90 tabs 03/18/24 04/27/24 22:00 Rx acetaminophen 500 mg tablet 1,000 mg (2 x 500 mg) PO Q8 14 04/29/24 Unknown Rx days #0 tabs oxycodone 5 mg tablet 5 - 10 mg (1 - 2 x 5 mg) PO Q4H 04/29/24 Unknown Rx PRN PRN Pain Score 4-10 7 days #42 tabs rivaroxaban 10 mg tablet (Xarelto) 10 mg PO DAILY@0600 13 days #13 04/29/24 Unknown Rx tabs sennosides 8.6 mg-docusate sodium 2 tab PO BID 3 days #12 tabs 04/29/24 Unknown Rx 50 mg tablet (Stimulant Laxative Plus) Allergy/AdvReac Type Severity Reaction Status Date / Time No Known Allergies Allergy Verified 04/30/24 08:01 Family History Other ALS (amyotrophic lateral sclerosis) Cancer Diabetes Heart disease Hypertension Parkinsons Surgical History Hx of colonoscopy History of esophagogastroduodenoscopy (EGD) Hx of foot surgery Hx of arthroscopic knee surgery History of cholecystectomy (~2011) History of left heart catheterization (01/15/23) History of coronary artery bypass surgery (02/01/23) Social History household members: spouse Smoking Status: Former smoker alcohol intake: current alcohol intake frequency: holidays/special occasions only substance use type: does not use caffeine: No ROS ROS ED Constitutional Constitutional ED: Denies chills, fever(s) or weight loss Eyes Eyes: Denies change in vision or diplopia ENT ENT ED: Denies ear pain, rhinorrhea or sore throat Cardiovascular Cardiovascular: Reports other Details: Syncope ; Denies chest pain, orthopnea, palpitations or racing heartbeat Respiratory/Chest Respiratory/Chest: Denies cough, dyspnea or orthopnea Gastrointestinal Gastrointestinal: Denies abdominal pain, diarrhea, nausea or vomiting Genitourinary Genitourinary ED: Denies dysuria, hematuria or urinary frequency Musculoskeletal Musculoskeletal: Reports other Details: Postoperative knee pain ; Denies arthralgias or myalgias Integumentary Denies abscess or rash Neurologic Neurologic: Denies headache(s) or weakness Psychiatric Psychiatric: Denies anxiety, depression, suicidal ideation or suicidal thoughts Endocrine Endocrinology: Denies polydipsia, polyphagia or polyuria Allergic/Immunologic Allergic/Immunologic ED: Denies mouth swelling, tongue swelling or urticaria EXAM Physical Exam Const Vital Signs: 04/30/24 07:53 04/30/24 07:59 04/30/24 09:53 Temperature 99.0 F Temperature Source Oral Pulse Rate 75 73 Respiratory Rate 16 16 Respiratory Effort Normal Respiratory Pattern Normal Blood Pressure 130/71 H 117/60 Blood Pressure Mean 90 79 Pulse Ox 97 91 Oxygen Delivery Method Room Air Room Air 04/30/24 11:00 Temperature Temperature Source Pulse Rate 80 Respiratory Rate 16 Respiratory Effort Respiratory Pattern Blood Pressure 119/61 Blood Pressure Mean 80 Pulse Ox 95 Oxygen Delivery Method Room Air Positive well nourished and well developed General Appearance ED: well developed and NAD HEENT Reports normocephalic, head/scalp atraumatic and moist mucous membranes Eyes PERRL and EOMs intact bilaterally Neck no lymphadenopathy, supple and no JVD Resp normal respiratory effort and clear to auscultation bilaterally Cardio regular rate, regular rhythm and no murmurs GI normal to inspection, nondistended, normoactive bowel sounds and non-tender Palpation: soft Back/Spine no CVA tenderness and normal ROM Extremity Extremity Narrative: There appears to be postoperative swelling of the left knee. Surgical dressing in place. Mild swelling of the calf. No significant swelling of the feet. General Extremety ED: Negative for edema General Extremity: Negative for edema Neuro oriented x3 and CN's II-XII intact bilaterally Sensorium / Orientation: alert Motor Exam: strength 5/5 throughout Psych mental status grossly normal Mood & Affect: Negative for depressed or tearful Skin no rashes or lesions noted and no wounds Skin Narrative: Patient does not appear pale MDM MDM MDM Narrative Medical decision making narrative: Differential diagnosis includes cardiac dysrhythmia pulmonary embolism acute coronary syndrome dehydration anemia White count 8.1 hemoglobin 12.7 which is higher than her discharge hemoglobin 2 sets of cardiac enzymes are normal creatinine 1.40 BUN 15 normal electrolytes. Patient has been in normal sinus rhythm. His EKG is nonischemic. CTA of the chest does not demonstrate any pulmonary embolism. There is an area of the right which I question is possible atelectatic change. He is not having fever or significant cough. He is trying to do deep breathing due to being more sedentary than normal. I think at this point the patient can be discharged home. I spoke with the patient his daughter and his . notes that he had been noting some dizziness just prior to going in and brushing his teeth in the setting that he was feeling like he might need to have a bowel movement. This certainly raises the possibility of a vagal like reaction. Patient to return if worsening or concerns. We did speak briefly about his constipation. He is on a stool softener while taking oxycodone. He may try some magnesium citrate to help advance bowel movement. History & Record Review Discussion w/independent historian: EMS personnel, Patient and Family Lab Data Attestation: I reviewed the patient's lab results. Labs: Laboratory Results - last 24 hr 04/30/24 04/30/24 07:40 10:32 WBC 8.1 RBC 4.25 L Hgb 12.7 L Hct 38.3 L MCV 90.1 MCH 29.9 MCHC 33.2 RDW Std Deviation 44.2 H RDW Coeff of Kiersten 13.5 Plt Count 217 MPV 10.5 Immature Gran % (Auto) 0.500 Neut % (Auto) 63.9 Lymph % (Auto) 24.7 Mcduffie % (Auto) 9.5 Eos % (Auto) 0.7 Baso % (Auto) 0.7 Absolute Neuts (auto) 5.2 Absolute Lymphs (auto) 2.00 Nucleated RBC % 0 Sodium 136 Potassium 4.0 Chloride 104 Carbon Dioxide 25.0 Anion Gap 8 BUN 15 Creatinine 1.40 H Estim Creat Clear Calc 48.03 Est GFR (MDRD) Af Amer 63 Est GFR (MDRD) Non-Af 52 L BUN/Creatinine Ratio 10.7 Glucose 170 H Calcium 8.8 Troponin I High Sens 10 8 Radiography Diagnostic Testing: Clinical Impression(s) from Imaging Studies Chest CTA 04/30/24 08:15 IMPRESSION: Mild groundglass and irregular nodular opacities in the right upper and lower lobes measuring up to 10 mm, likely infectious or inflammatory. Recommend close short-term interval follow-up to resolution to exclude other etiologies. Moderate hiatal hernia. Probable esophagitis. No evidence of pulmonary embolism. Electronically Signed: Radha Paez MD at 10:11 EDT Reading Location ID and State: [facility] / [place] Tel , Service support , EKG Initial EKG: Attestation: I personally reviewed and interpreted this EKG as follows: Comments: Normal sinus rhythm with a ventricular rate of 73 bpm. Incomplete right bundle branch block noted Discharge Plan Triage Chief Complaint: Syncope ED Provider: Andrei Clay Dx/Rx/DC Orders Clinical Impression: Syncope, Status post total left knee replacement, Anticoagulated, Constipation Instructions: ED Fainting, Uncertain Cause Prescriptions: No Action multivitamin Tablet 1 tab PO DAILY insta flex joint support 1 tab PO DAILY alfuzosin 10 mg tablet extended release 24 hr 10 mg PO QHS Rx Instructions: administer after the same meal each day vitamin E mixed 400 unit tablet 400 unit PO DAILY omega-3 fatty acids 1,000 mg capsule 1,000 mg PO BID metoprolol succinate 25 mg tablet extended release 24 hr 25 mg PO QHS Qty: 90 3RF aspirin 81 MG tablet 81 mg PO DAILY@0800 acetaminophen 500 mg Tablet 1,000 mg PO Q8 14 Days Qty: 0 0RF Rx Instructions: Do not take more than 3000 mg Tylenol in a 24-hour period. oxycodone 5 mg Tablet 5 - 10 mg PO Q4H PRN PRN (Reason: Pain Score 4-10) 7 Days Qty: 42 0RF sennosides-docusate sodium [Stimulant Laxative Plus] 8.6-50 mg Tablet 2 tab PO BID 3 Days Qty: 12 0RF Rx Instructions: Take until first bowel movement, then as needed Xarelto 10 mg Tablet 10 mg PO DAILY@0600 13 Days Qty: 13 0RF Rx Instructions: Take for 2 weeks postoperatively for DVT prophylaxis due to prostate cancer esomeprazole magnesium 40 mg capsule,delayed release(DR/EC) 40 mg PO BID Qty: 180 3RF rosuvastatin 40 mg tablet 40 mg PO DAILY Qty: 90 3RF famotidine 40 mg tablet 40 mg PO QHS Qty: 90 3RF Primary Care Provider: Ayanna Sharp Referrals: Ayanna Sharp MD [Primary Care Provider] - As Needed Hilton Wakefield MD [Med Staff - Active Staff] - Keep Linsey appointment Print Language: Sami Disposition Disposition: Home, Self Care
[2024-04-30 08:42] LABS: Anion Gap 8 (5-15); BUN 15 mg/dL (7-18); BUN/Creat Ratio 10.7 RATIO (10-20); Calcium,Total 8.8 mg/dL (8.5-10.1); Chloride 104 mmol/L (98-107); EST Glomerular Filtration Rate 52 mL/min (>60); Est Glom Filt Rate - Afr Amer 63 mL/min (>60); Estimated Creatinine Clearance 48.03 ml/min; Glucose 170 mg/dL (74-106); Sodium Level 136 mmol/L (136-145); Troponin-I HS (w/2H Reflex) 10 pg/mL (3.0-78.0)
[2024-04-30 09:53] VITALS: BP 117/60; PULSE 73; RESP 16; O2SAT 91
[2024-04-30 10:19] LABS: Reflex Troponin-HS? (from REC) Y
[2024-04-30 10:56] LABS: Troponin-I HS 8 pg/mL (3.0-78.0)
[2024-04-30 11:00] VITALS: BP 119/61; PULSE 80; RESP 16; O2SAT 95
[2024-04-30 11:25] VITALS: BP 119/61; PULSE 80; RESP 16; TEMP 36.8; O2SAT 98
== END 2024-04-30 11:27 | disposition home or self-care (01) ==
PROVIDERS: Emergency Provider Emergency Medicine; PCP Internal Medicine; Visit Provider Emergency Medicine
DX: R55 Syncope and collapse (principal); I45.10 Unspecified right bundle-branch block; K59.00 Constipation, unspecified; I10 Essential (primary) hypertension; I25.10 Atherosclerotic heart disease of native coronary artery without angina pectoris; E78.00 Pure hypercholesterolemia, unspecified; K21.9 Gastro-esophageal reflux disease without esophagitis; N42.9 Disorder of prostate, unspecified; M19.90 Unspecified osteoarthritis, unspecified site; Z95.1 Presence of aortocoronary bypass graft; Z90.49 Acquired absence of other specified parts of digestive tract; Z79.01 Long term (current) use of anticoagulants; Z79.82 Long term (current) use of aspirin; Z96.652 Presence of left artificial knee joint; Z79.899 Other long term (current) drug therapy; Z87.891 Personal history of nicotine dependence
CPT/HCPCS: 71275; 80048; 84484; 85025; 93005; 99284; Q9967; A4216

== ENCOUNTER → 2024-06-19 | Outpatient (CLI) | payer MEDICARE, OTHER, SELFPAY ==
[2023-06-25 08:23] VITALS: BMI 27.8
[2024-06-19 09:26] LABS: Vitamin D,25 Hydroxy 41.1 ng/mL
[2024-06-19 09:30] LABS: AST(SGOT) 17 U/L (15-37); Alanine Aminotransfer ALT/SGPT 24 U/L (16-61); Albumin, Serum 3.6 g/dL (3.2-5.0); Alkaline Phosphatase 59 U/L (45-117); Anion Gap 3 (5-15); BUN 15 mg/dL (7-18); BUN/Creat Ratio 12.3 RATIO (10-20); Calcium,Total 9.1 mg/dL (8.5-10.1); Chloride 105 mmol/L (98-107); Cholesterol 144 mg/dL (200); Creatinine, Serum 1.22 mg/dL (0.70-1.30); EST Glomerular Filtration Rate 61 mL/min (>60); Est Glom Filt Rate - Afr Amer 74 mL/min (>60); Globulin 3.6 g/dL (2.2-4.2); Glucose 148 mg/dL (74-106); High Density Lipoprotein 47 mg/dL; Potassium 4.5 mmol/L (3.5-5.1); Protein, Total 7.2 g/dL (6.4-8.2); Sodium Level 138 mmol/L (136-145); Triglycerides 118 mg/dL; Very Low Density Lipoprotein 24 mg/dL (5-40)
[2024-06-19 09:34] LABS: PSA,Total- Diagnostic 8.75 ng/mL (0.0-4.0)
[2024-06-19 12:35] LABS: Hemoglobin A1c 6.6 % (3.8-5.6)
== END | disposition home or self-care (01) ==
LOC: LAB 08:39
PROVIDERS: PCP Internal Medicine; Referring Provider Nurse Practitioner; Visit Provider Nurse Practitioner
DX: C61 Malignant neoplasm of prostate (principal); E55.9 Vitamin D deficiency, unspecified; I10 Essential (primary) hypertension; Z95.1 Presence of aortocoronary bypass graft; I25.10 Atherosclerotic heart disease of native coronary artery without angina pectoris; R73.9 Hyperglycemia, unspecified; Z13.220 Encounter for screening for lipoid disorders
CPT/HCPCS: 36415; 80053; 80061; 82306; 83036; 84153

== ENCOUNTER 2024-06-26 09:30 | Outpatient (RCR) | payer MEDICARE, OTHER, SELFPAY ==
[2023-06-25 08:23] VITALS: BMI 27.8
--- NOTE | 2024-05-05 08:51 | HP.PTEVAL_ITS ---
Patient's Visit Information Visit Information Visit Information: BRANDEE HINSON is a 78 year old M referred to Physical Therapy by Dr. Hilton Wakefield MD with a diagnosis of L TKA DOS: 04/28/24. Date of Evaluation: 05/01/24 Physical Therapist: Benjamín Crow DPT Visit Plan Frequency: 3x /Week Duration: 6 Weeks Plan: 1) Progress ROM to 0-0-120deg, HS stretching, nustep/bike, knee flexion ROM 2) Edema control 3) functional strengthening, gait progression Subjective Subjective: Pt. is here today for his initial evaluation with diagnosis of L TKA. DOS: 04/28/24. Pt. arrives with WC this date, but has been using FWW at home. Pt. reports doing some of his exercises, but has been mostly working on his ROM. He reports having an episode of syncope, but came to with in 30 sec or so. He did go to the ER and was checked out. Pt. reports pain at 6/10 today. No N/T, no blurred vision and no calf pain. Pt. has been icing and elevating as able. Pt. likes to go to gym and is hopeful to get back to all reactional activities without limitations. Retired. Pt. is here today with spouse. Pain L knee: Pain Intensity (Out of 10): 6 Pain Intensity Range: 3 and 8 Objective Objective: POSTURE: Pt. has increased R sided wt. shift in stance. Lacks TKE on LLE in stance. He tolerates Wbing well. PALPATION: Bandage in place. Pt. to remove this weekend. Pt. has no signs of infection. 12 cm difference in swelling mid patella. Negative homans sign NEURO: Normal sensation and normal DTR of B achilles. Pt. is able to rise on heels and toes. ROM: R knee: 0-5-118deg. Marked varus. L knee: 0-10-81deg. Tightness noted in B HS. MMT: R knee: ext 21.5#, flexion 17.7#; hip: flexion 17.1, abd 13.8# L Knee: ext 0#, flexion 4#; hip flexion 0#, abd 8#. GAIT: Pt. ambulates with FWW with marked lack of TKE on LLE. This did improve with VCing. Pt. lacked knee flexion during swing as well. STAIRS: Step to pattern with 2 HR. TU.9sec with FWW 30sec sit to stand 5 with use of UEs. Balance/Special Test Scores WOMAC Total Score: 73 WOMAC Percentatge: 23.9600 Goals Goal 1:: LTG: Pt. to be I with HEP. Goal Time Frame: 4-6 Weeks Goal 2:: STG: pt. to have increased PROM of his L knee to 0-0-120deg. Goal Time Frame: 2-4 Weeks Goal 3:: LTG: Pt. to ambulate with no AD with normal gait pattern. Goal Time Frame: 4-6 Weeks Goal 4:: LTG: Pt. to complete TUG under 10sec without AD. Goal Time Frame: 4-6 Weeks Goal 5:: LTG: Pt. to complete 30sec sit to stand rep test with at least 15 reps. Goal Time Frame: 4-6 Weeks Goal 6:: LTG: Pt. to have equal strength between BLEs. Goal Time Frame: 6-8 Weeks Rehabilitation Potential Physical Therapy Diagnosis: Pt. has signs and symptoms consistent with L TKA DOS: 04/28/24. Pt. has marked hypomobility, weakness and difficulty with walking. Pt. would benefit from PT to address the above limitations. Rehabilitation Potential: Excellent Anticipated Interventions Patient/Client Instruction: Educate patient on: Condition, Plan of Care, Risk Factors and Benefits of Fitness Program For the Purpose of:: To improve health and function, To foster healthy habits, To improve decision making, To facilitate caregiver knowledge, To improve self management, To prevent re-injury and To improve ability to perform tasks related to life management Therapeutic Exercise to Include: Strength training, Power training, Endurance training, Balance training, Postural training, Flexibilty training, Gait and locomotor training, Passive ROM and Active ROM For the Purpose of:: To decrease pain, To increase ROM, To improve nutrient delivery to tissue, To increase oxygenation perfusion, To improve muscle performance and motor function, To improve ability of physical actions for home/community/work/leisure, To improve gait and locomotor functions, To improve health of tissue, To decrease soft tissue restriction and To increase flexibility/ROM Manual Therapy Techniques to Include: Mobilization, Passive ROM and Functional dry needling For the Purpose of:: To decrease pain, To decrease swelling/inflammation, To increase ROM, To improve nutrient delivery to tissue, To increase oxygenation perfusion, To improve ability of physical actions for h ome/community/work/leisure, To improve gait and locomotor functions, To improve health of tissue, To decrease soft tissue restriction and To increase flexibility/ROM Cryotherapy (ice pack, ice massage): Yes Vasopneumatic device: Yes For the Purpose of:: To decrease pain, To decrease swelling/inflammation, To increase ROM, To improve nutrient delivery to tissue, To increase oxygenation perfusion, To improve gait and locomotor functions, To improve health of tissue, To decrease soft tissue restriction and To increase flexibility/ROM Text: Thank you for the opportunity to evaluate your patient. For Medicare and Medicare HMO plans, please review the plan of care and approve it. It will need to be FAXED BACK to us at [phone] for Medicare purposes. For Medicare only, by signing this I certify the plan of care. Please let me know if there are questions or concerns regarding this plan of care. Physician Signature: Date:
--- NOTE | 2024-06-06 10:54 | HP.PTREVAL_ITS ---
Re-Evaluation Intro: Dr. Hilton Wakefield MD, It has been my pleasure to treat BRANDEE HINSON over the last 15 visits for L TKA DOS: 04/28/24. Please see the progress note below for an update on the physical therapy plan of care! Subjective Subjective: Pt. reports having some back pain today. 3/10 pain in L knee as well. It feels stiff. Pt. to see physician next week. Pt. reports wanting to be better with steps and endurance. Pt. reports being 60% better. Objective Objective/Function: ROM: 0-0-108deg. AROM, PROM: 0-0-113deg. MMT: RLE: ext 49.5#, flex 37.1# LLE: knee: ext 24.5#, flex 21.1# STAIRS: Pt. able to complete with reciprocal pattern with1 HR. Pt has slight early heel off. GAIT: pt. has pretty good gait pattern. Pt. report not much pain. He does have a slight antalgic pattern, but minimal. He has decent TKE and decent flexion during swing. He would benefit from further instruction and education for TKE during stance phase. Brandee is overall well. He has some slight stiffness into extension and flexion this date, but is close to expectations. I would really like a little bit more in flexion and increased ease with extension. He is functionally moving very well. However he does have some marked LLE weakness which he would benefit from continued to PT to address this. Goals are still appropriate at this point in time and is progressing towards them. Plan Plan Plan: 1) work on endrange of motions of L knee 2) progressive quad, HS and glute strengthening use of ice and vaso as needed. Balance/Gait/Functional tests Balance/Special Test Scores Lower Extremity Functional Score: 34 TUG Test Time Seconds: 10.9 Tug Test: <20 sec.=mostly independent 30 Second Chair Rise Test Seconds: 11 6 Minute Walk Test: 1331 feet without AD WOMAC Total Score: 73 WOMAC Percentage: 23.9600 Goals Goals Goal 1:: LTG: Pt. to be I with HEP. Goal Time Frame: 4-6 Weeks Goal Progress: Goal Met Goal 2:: STG: pt. to have increased PROM of his L knee to 0-0-120deg. Goal Time Frame: 2-4 Weeks Goal Progress: Progressing Goal 3:: LTG: Pt. to ambulate with no AD with normal gait pattern. Goal Time Frame: 4-6 Weeks Goal Progress: Progressing Goal 4:: LTG: Pt. to complete TUG under 10sec without AD. Goal Time Frame: 4-6 Weeks Goal Progress: Progressing Goal 5:: LTG: Pt. to complete 30sec sit to stand rep test with at least 15 reps. Goal Time Frame: 4-6 Weeks Goal Progress: Progressing Goal 6:: LTG: Pt. to have equal strength between BLEs. Goal Time Frame: 6-8 Weeks Goal Progress: Progressing Anticipated Interventions Anticipated Interventions Patient/Client Instruction: Educate patient on: Condition, Plan of Care, Risk Factors and Benefits of Fitness Program For the Purpose of:: To improve health and function, To foster healthy habits, To improve decision making, To facilitate caregiver knowledge, To improve self management, To prevent re-injury and To improve ability to perform tasks related to life management Therapeutic Exercise to Include: Strength training, Power training, Endurance training, Balance training, Postural training, Flexibilty training, Gait and locomotor training, Passive ROM and Active ROM For the Purpose of:: To decrease pain, To increase ROM, To improve nutrient delivery to tissue, To increase oxygenation perfusion, To improve muscle perform ance and motor function, To improve ability of physical actions for home/community/work/leisure, To improve gait and locomotor functions, To improve health of tissue, To decrease soft tissue restriction and To increase flexibility/ROM Manual Therapy Techniques to Include: Mobilization, Passive ROM and Functional dry needling For the Purpose of:: To decrease pain, To decrease swelling/inflammation, To increase ROM, To improve nutrient delivery to tissue, To increase oxygenation perfusion, To improve ability of physical actions for home/community/w ork/leisure, To improve gait and locomotor functions, To improve health of tissue, To decrease soft tissue restriction and To increase flexibility/ROM Cryotherapy (ice pack, ice massage): Yes Vasopneumatic device: Yes For the Purpose of:: To decrease pain, To decrease swelling/inflammation, To increase ROM, To improve nutrient delivery to tissue, To increase oxygenation perfusion, To improve gait and locomotor functions, To improve health of tissue, To decrease soft tissue restriction and To increase flexibility/ROM Re-Evaluation Ending Re-evaluation ending: Please do not hesitate to contact me at [phone] by phone or if you have questions or concerns regarding this new plan of care! Sincerely, KUMAR BeyerT
== END 2024-06-26 19:00 | disposition home or self-care (01) ==
LOC: PT 09:30
PROVIDERS: PCP Internal Medicine; Referring Provider Specialist; Visit Provider Specialist
DX: Z96.652 Presence of left artificial knee joint (principal); Z47.1 Aftercare following joint replacement surgery
CPT/HCPCS: 97016; 97110; 97140; 97161; 97530

== ENCOUNTER → 2024-07-17 | Outpatient (CLI) | payer MEDICARE, OTHER, SELFPAY ==
[2023-06-25 08:23] VITALS: BMI 27.8
--- NOTE | 2024-07-17 13:51 | MRI_ITS ---
EXAM: MR LUMBAR SPINE WITHOUT INTRAVENOUS CONTRAST CLINICAL INDICATION: pain TECHNIQUE: Multiplanar and multisequence MR images of the lumbar spine without intravenous contrast. COMPARISON: Plain films July 11, 2024. CTA chest April 30, 2024. There were multiple nodular opacities in the right upper lobe the largest roughly 2.1 cm, for which short-term follow-up was recommended. Abdomen and pelvis CT December 13, 2009. FINDINGS: VERTEBRAE: Mildly heterogeneous endplate erosions at L2-3 without significant high T2 or inversion recovery image edema to suggest infection.. Normal alignment. No spondylolisthesis. There is preservation of the normal lumbar lordosis. SPINAL CORD: Unremarkable. Normal position and signal intensity of the conus medullaris at L1 level. SOFT TISSUES: Unremarkable. DISCS/SPINAL CANAL/NEURAL FORAMINA: L1-L2: Decreased T2 signal intensity, minimal. Normal disc height and morphology. Normal spinal canal and lateral recesses. Normal neuroforamina. L2-L3: Mild to moderate decreased disc height, anterolateral right to midline endplate changes, moderate annular disc bulge, ligamentum flavum hypertrophy. Moderate-marked right and moderate left neural foraminal stenosis by uncovertebral osteophyte-bulging disc complexes and mild hypertrophic facet joints. Minimal canal narrowing, the midline canal is estimated to be 8.6 mm AP with slight residual CSF signal intensity in between mildly crowded nerve roots. L3-L4: Minimal decreased disc height, decreased T2 signal intensity. Facet joint hypertrophic changes contributing to moderate-marked bilateral neural foraminal stenosis. Mild ligamentum flavum hypertrophy. Slight flattening of the lateral recesses. The AP midline canal is minimally narrowed to roughly 8.5 mm with visible CSF signal. L4-L5: Moderate decreased disc height, mild endplate Modic type degenerative changes. Moderate annular disc bulge. Moderate-marked bilateral neural foraminal stenosis. Facet joint hypertrophy. Ligamentum flavum hypertrophy. Spinal stenosis, midline AP canal is estimated to be 1 cm, transverse canal only 1.2 cm, with almost completely effaced CSF signal and narrowed lateral recesses. L5-S1: Normal disc height, decreased T2 signal intensity. Minimal annular disc bulge with slight flattening of the ventral midline thecal sac. Minimal left neural foraminal stenosis. Moderate asymmetric facet joint hypertrophy, greater on the left. MRI/Spine Lumbar (Routine) IMPRESSION: Multilevel degenerative changes. Borderline-mild spinal stenosis at multiple levels, especially stenosis at L4-5. Predominantly due to multifactorial hypertrophic changes. Multilevel neural foraminal stenosis. Electronically Signed: Cecilia Butts MD at 2:13 EST ,
== END | disposition home or self-care (01) ==
LOC: MRI 13:49
PROVIDERS: PCP Internal Medicine; Referring Provider Student in an Organized Health Care Education/Training Program; Visit Provider Student in an Organized Health Care Education/Training Program
DX: M51.369 Other intervertebral disc degeneration, lumbar region without mention of lumbar back pain or lower extremity pain (principal)
CPT/HCPCS: 72148

== ENCOUNTER → 2024-12-24 | Outpatient (CLI) | payer MEDICARE, OTHER, SELFPAY ==
[2023-06-25 08:23] VITALS: BMI 27.8
[2024-12-24 08:16] LABS: Absolute Lymphocyte Count 1.76 X10^3/uL (0.83-4.51); Absolute Neutrophil Count 2.9 X10^3/uL (2.0-7.7); Basophil# 0.05 X10^3/uL; Basophil% 0.9 % (0-1); Eosinophil# 0.14 X10^3/uL; Eosinophils% 2.7 % (0-5); Hematocrit 41.5 % (40-54); Hemoglobin 13.8 g/dL (13.0-16.5); Lymphocyte # 1.76 X10^3/ul (0.83-4.51); Lymphocyte % 33.4 % (19-41); Mean Corp Hgb Conc 33.3 g/dL (32-36); Mean Corpuscular Hgb 28.7 pg (27.0-32.0); Mean Corpuscular Volume 86.3 fL (80-94); Mean Platelet Vol. 9.8 fl (6.2-12.0); Monocyte# 0.44 X10^3/uL; Monocyte% 8.3 % (0-10); NRBC Flagged by Analyzer 0 % (0-5); Neutrophil # 2.88 X10^3/uL (2.7-7.7); Neutrophil % 54.7 % (47-70); Platelet Count 212 K/mm3 (150-450); RBC Distribution Width CV 13.9 % (11.6-14.6); Red Blood Count 4.81 M/mm3 (4.6-6.2); White Blood Count 5.3 K/mm3 (4.4-11.0)
[2024-12-24 09:29] LABS: Hemoglobin A1c 7.2 % (<=5.6)
[2024-12-24 09:43] LABS: ALB/GLOB Ratio 1.5 RATIO (0.9-2.4); AST(SGOT) 26 U/L (<=37); Alanine Aminotransfer ALT/SGPT 18 U/L (<=46); Albumin, Serum 4.1 g/dL (3.4-4.8); Alkaline Phosphatase 53 U/L (40-129); Anion Gap 11 (5-15); BUN 19 mg/dL (4-19); BUN/Creat Ratio 17.6 RATIO (10-20); Carbon Dioxide 23.8 mmol/L (21.0-32.0); Chloride 104 mmol/L (98-108); Cholesterol 148 mg/dL (<=200); Creatinine, Serum 1.06 mg/dL (0.70-1.20); EST Glomerular Filtration Rate 71 (>60); Globulin 2.7 g/dL (2.2-4.2); Glucose 144 mg/dL (70-99); High Density Lipoprotein 46 mg/dL; Low Density Lipoprotein Calc. 81 mg/dL; PSA,Total- Diagnostic 6.21 ng/mL (0.00-4.00); Potassium 4.3 mmol/L (3.3-5.1); Protein, Total 6.9 g/dL (5.9-8.4); Sodium Level 138 mmol/L (133-145); Total Bilirubin 0.56 mg/dL (0.00-1.30); Triglycerides 105 mg/dL; Very Low Density Lipoprotein 21 mg/dL (5-40); Vitamin D,25 Hydroxy 39.4 ng/mL (30-100); cholesterol:hdl ratio screen 3.22
== END | disposition home or self-care (01) ==
LOC: PSN 07:46
PROVIDERS: PCP Internal Medicine
DX: Z13.220 Encounter for screening for lipoid disorders (principal); J42 Unspecified chronic bronchitis; C61 Malignant neoplasm of prostate; R73.9 Hyperglycemia, unspecified; E78.5 Hyperlipidemia, unspecified; I10 Essential (primary) hypertension; R97.20 Elevated prostate specific antigen [PSA]; R39.9 Unspecified symptoms and signs involving the genitourinary system; I25.10 Atherosclerotic heart disease of native coronary artery without angina pectoris; E55.9 Vitamin D deficiency, unspecified; N40.0 Benign prostatic hyperplasia without lower urinary tract symptoms
CPT/HCPCS: 36415; 80053; 80061; 82306; 83036; 84153; 84443; 85025; 94060; 94726; 94729

== ENCOUNTER → 2025-04-28 | Outpatient (CLI) | payer MEDICARE, OTHER, SELFPAY ==
[2023-06-25 08:23] VITALS: BMI 27.8
--- NOTE | 2025-04-28 13:29 | RAD_ITS ---
PROCEDURE: CHEST PA AND LATERAL 04/28/2025 REASON FOR EXAM: COUGH TECHNIQUE: Procedure Code: RADCXR Modality: DX Procedure: CHEST PA AND LATERAL FINDINGS: Prior sternotomy. Is normal in size. The lungs are clear. No acute osseous abnormalities. RAD/Chest PA and Lateral IMPRESSION: NO ACUTE FINDINGS. Reading Location: [id number]
== END | disposition home or self-care (01) ==
LOC: MTRAD 13:29
PROVIDERS: PCP Internal Medicine; Referring Provider Physician Assistant; Visit Provider Physician Assistant
DX: R05.9 Cough, unspecified (principal)
CPT/HCPCS: 71046

== ENCOUNTER → 2025-06-25 | Outpatient (CLI) | payer MEDICARE, OTHER, SELFPAY ==
[2023-06-25 08:23] VITALS: BMI 27.8
[2025-06-25 12:17] LABS: PSA,Total- Diagnostic 8.08 ng/mL (0.00-4.00)
== END | disposition home or self-care (01) ==
LOC: LAB 09:36
PROVIDERS: PCP Internal Medicine; Referring Provider Urology; Visit Provider Urology
DX: C61 Malignant neoplasm of prostate (principal)
CPT/HCPCS: 36415; 84153